=== PATIENT | male | born 2000 | race Caucasian/White ===

== ENCOUNTER 2025-01-22 08:16 | Emergency (ER) | payer MEDICAID, SELFPAY ==
[2025-01-22 08:17] VITALS: BP 130/96; PULSE 99; RESP 16; TEMP 36.8; O2SAT 95; BMI 19.5
--- NOTE | 2025-01-22 08:37 | CT_ITS ---
PROCEDURE: ABDOMEN/PELVIS W IV CONT ONLY 01/22/2025 REASON FOR EXAM: RLQ PAIN Nausea and vomiting. TECHNIQUE: ABDOMEN/PELVIS W IV CONT ONLY Coronal and Sagittal reconstruction series were provided. CONTRAST: Isovue-300 VOLUME: 100 mL One or more dose reduction techniques were used (e.g., Automated exposure control, adjustment of the mA and/or kV according to patient size, use of iterative reconstruction technique. RADIATION DOSE SUMMARY: CTDlvol: 7.8 mGy DLP: 303.71 mGycm COMPARISON: None FINDINGS: Lung bases: Lung bases are clear. Liver: Normal size. No mass. Gallbladder: Unremarkable Spleen: Normal size. Pancreas: Normal size without evidence of mass surrounding inflammation or ductal dilation. Adrenals: Unremarkable Kidneys: Normal renal sizes. No hydronephrosis. Bladder: Unremarkable Bowel: Nonspecific bowel gas pattern. Appendix: Unremarkable. Lymph nodes: Unremarkable Vasculature: The abdominal aorta and IVC are normal. Peritoneum / Retroperitoneum: Unremarkable Bones: Unremarkable CT/Abdomen/Pelvis W IV Cont ONLY IMPRESSION: No acute abnormality is seen. Reading Location: [id number]
--- NOTE | 2025-01-22 08:37 | EX.ED.DYSGE1 ---
HPI History of Present Illness Chief Complaint: Other, Pain/Inj Narrative Narrative: Patient is a 24-year-old male past medical history of pancreatitis who presented to the emergency department with a chief complaint abdominal pain. Patient states that yesterday he noted that he had abdominal pain nausea vomiting and states that the vomiting is since subsided. He states that he was concerned because on his left hand between these finger spaces he noted that his skin turned a darker color but noted that it was only on the left hand. He states that he was concerned as nothing like this is ever happened before. When inquiring about why he developed pancreatitis in the past he states it was from alcohol he states that he does not drink alcohol daily but does admit to still drinking. PFSH PFSH Home Medications ?Medication ?Instructions ?Recorded ?Last Taken ?Type dicyclomine 20 mg tablet 20 mg PO TID #30 tabs 01/22/25 Unknown Rx ondansetron 4 mg disintegrating 4 mg PO Q6H PRN nausea and 01/22/25 Unknown Rx tablet vomiting #20 tabs Allergy/AdvReac Type Severity Reaction Status Date / Time No Known Allergies Allergy Verified 01/22/25 08:17 Social History Smoking Status: Never smoker ROS ROS ED ROS Narrative Constitutional: Denies fevers, chills, headaches Cardiovascular: Denies chest pain or palpitations Respiratory: Denies shortness of breath Abdomen: Complains of abdominal pain as noted above and states that his nausea vomiting has subsided denies any previous abdominal surgeries : Denies any urinary symptoms Neurological: Denies numbness, aches, tingling Musculoskeletal: Denies back pain Skin: Denies any rashes or lesions EXAM Physical Exam Narrative Exam Narrative: General: Patient lying bed rest comfortably did not appear to be acute distress Head: Atraumatic, normocephalic Eyes: PERRL bilaterally, EOMI by, no conjunctival injection noted Neck: Soft, supple, trachea midline Cardiovascular: Regular rate and rhythm Respiratory: Clear to auscultation bilaterally Abdomen: Soft, nondistended, tenderness palpation in the right lower quadrant as well as the epigastric region no rebound or guarding on exam Extremities: +5/5 strength noted in the bilateral upper and lower extremities Neurological: Patient follow commands knew that he was at [facility] year is 2024 Skin: Warm, dry contact no rashes lesions noted patient does not have any appreciable significant skin changes in between his fingers on the left hand Const Vital Signs: 01/22/25 08:17 Temperature 98.2 F Temperature Source Oral Pulse Rate 99 Respiratory Rate 16 Blood Pressure 130/96 H Blood Pressure Mean 107 Pulse Ox 95 Oxygen Delivery Method Room Air MDM MDM MDM Narrative Medical decision making narrative: Patient is a 24-year-old male who presented to the emergency department the chief complaint of abdominal pain and concern for skin color change in his left hand. On the differential diagnosis includes but not limited to cholecystitis, choledocholithiasis, pancreatitis, appendicitis, viral gastroenteritis, constipation. Once workup is obtained reviewed he will be reevaluated. Patient be given IV fluids Zofran and Bentyl. Patient's CBC was reviewed and showed no evidence leukocytosis white blood count normal at 6.6, hemoglobin 15.8, plate count of 322. Patient sodium normal 139, potassium normal 3.7, creatinine normal at 0.99. Patient's AST and ALT were normal at 21 and 15 respectively total bilirubin was mildly elevated 1.54 however repeat abdominal exam was performed and he has no right upper quadrant tenderness on exam abdomen remains benign. Patient lipase normal at 16. Patient CT abdomen pelvis IV contrast was reviewed and showed no acute findings. On reevaluation the patient he is feeling better he would like to go home at this point time. He is vies follow-up with his primary care physician outpatient setting return with worsening symptoms or any other concerns. He is agreeable this plan as well as his family at bedside all question concerns answered is discharged home in stable condition. Patient given prescription for Zofran and Bentyl. Lab Data Labs: Laboratory Results - last 24 hr 01/22/25 08:51 WBC 6.6 RBC 5.13 Hgb 15.8 Hct 44.9 MCV 87.5 MCH 30.8 MCHC 35.2 RDW Std Deviation 38.1 RDW Coeff of Elliott 11.9 Plt Count 322 MPV 8.9 Immature Gran % (Auto) 0.200 Neut % (Auto) 81.4 H Lymph % (Auto) 9.4 L [place] % (Auto) 8.8 Eos % (Auto) 0.0 Baso % (Auto) 0.2 Absolute Neuts (auto) 5.4 Absolute Lymphs (auto) 0.62 L Nucleated RBC % 0 Sodium 139 Potassium 3.7 Chloride 100 Carbon Dioxide 26.2 Anion Gap 13 BUN 8 Creatinine 0.99 Estim Creat Clear Calc 102.64 Est GFR (MDRD) Non-Af 110 BUN/Creatinine Ratio 8.4 L Glucose 107 H Calcium 9.7 Total Bilirubin 1.54 H AST 21 ALT 15 Alkaline Phosphatase 52 Total Protein 7.4 Albumin 4.7 Globulin 2.8 Albumin/Globulin Ratio 1.7 Lipase 16 Radiography Diagnostic Testing: Clinical Impression(s) from Imaging Studies Abdomen/Pelvis CT 01/22/25 08:37 IMPRESSION: No acute abnormality is seen. Reading Location: [id number] Discharge Plan Triage Chief Complaint: Other, Pain/Inj Other Complaint: Nausea/Vomiting ED Provider: Zac Mayer Dx/Rx/DC Orders Clinical Impression: Abdominal pain Prescriptions: New ondansetron 4 mg tablet,disintegrating 4 mg PO Q6H PRN (Reason: nausea and vomiting) Qty: 20 0RF dicyclomine 20 mg tablet 20 mg PO TID Qty: 30 0RF Primary Care Provider: Care Physician,No Primary Referrals: Care Physician,No Primary [Primary Care Provider] - Keshia Dumont Brian, BROADCAST ENGINEER-C [[facility]] - Activity Restrictions/Additional Instructions: Use prescriptions as prescribed. Your CT did not show any acute findings today. Return with worsening symptoms or any other concerns Print Language: Bel[place]ian Disposition Disposition: Home, Self Care
[2025-01-22] MEDS: Dicyclomine 10 MG Capsule 20 MG PO (08:49)
[2025-01-22] MEDS: Ondansetron 4 MG/2 ML Vial IV (08:49)
[2025-01-22] MEDS: 0.9% Normal Saline (1000mL) 1,000 ML 999 ML IV (08:49)
[2025-01-22 09:16] LABS: Absolute Lymphocyte Count 0.62 X10^3/uL (0.83-4.51); Absolute Neutrophil Count 5.4 X10^3/uL (2.0-7.7); Basophil# 0.01 X10^3/uL; Basophil% 0.2 % (0-1); Hematocrit 44.9 % (40-54); Hemoglobin 15.8 g/dL (13.0-16.5); Lymphocyte # 0.62 X10^3/ul (0.83-4.51); Lymphocyte % 9.4 % (19-41); Mean Corp Hgb Conc 35.2 g/dL (32-36); Mean Corpuscular Hgb 30.8 pg (27.0-32.0); Mean Corpuscular Volume 87.5 fL (80-94); Mean Platelet Vol. 8.9 fl (6.2-12.0); Monocyte# 0.58 X10^3/uL; Monocyte% 8.8 % (0-10); NRBC Flagged by Analyzer 0 % (0-5); Neutrophil # 5.35 X10^3/uL (2.7-7.7); Neutrophil % 81.4 % (47-70); Platelet Count 322 K/mm3 (150-450); RBC Distribution Width CV 11.9 % (11.6-14.6); RBC Distribution Width SD 38.1 fl (35.1-43.9); Red Blood Count 5.13 M/mm3 (4.6-6.2); White Blood Count 6.6 K/mm3 (4.4-11.0)
[2025-01-22 09:59] LABS: ALB/GLOB Ratio 1.7 RATIO (0.9-2.4); AST(SGOT) 21 U/L (<=37); Alanine Aminotransfer ALT/SGPT 15 U/L (<=46); Albumin, Serum 4.7 g/dL (3.5-5.0); Alkaline Phosphatase 52 U/L (40-129); Anion Gap 13 (5-15); BUN 8 mg/dL (4-19); BUN/Creat Ratio 8.4 RATIO (10-20); Calcium,Total 9.7 mg/dL (7.6-11.0); Carbon Dioxide 26.2 mmol/L (21.0-32.0); Chloride 100 mmol/L (98-108); Creatinine, Serum 0.99 mg/dL (0.70-1.20); EST Glomerular Filtration Rate 110 (>60); Estimated Creatinine Clearance 102.64 ml/min (50-250); Globulin 2.8 g/dL (2.2-4.2); Glucose 107 mg/dL (70-99); Lipase 16 U/L (13-75); Potassium 3.7 mmol/L (3.3-5.1); Protein, Total 7.4 g/dL (5.9-8.4); Sodium Level 139 mmol/L (133-145); Total Bilirubin 1.54 mg/dL (0.00-1.30)
--- OUTSIDE RECORDS SUMMARY | 2025-01-22 10:22 | XMS RPT_ITS | CCD ---
Author Organization [facility] Inform ion Partnership [facility] [employer] Care Team Providers Care Photogrammetric Compilation Specialist Name Role Phone Hudson Millan Unavailable Unavailable Primay Care Physicia, No Unavailable Unavail able Unavailable Primary Care Provider Unavailabl e Ashu, Benja S Admitting Unavailable Powderly, Benja S Attending Unavailable Unavailable Primary Care Provider Unavailabl e Unavailable Primary Care Provider Unavailabl e ROSA Terry Jr., Robert R Primary Care Provider ROSA Terry Jr., Robert R Primary Care Provider ROSA Trery Jr., Robert R Primary Care Provider ANAND BHARDWAJ Attending Unavailable JAELYN TERRY JR. Primary Care Unavailable JAELYN TERRY JR. Primary Care Unavailable LUCIO OBRIEN Attending Unavailable KALEN VILLANUEVA Attending Unavailable [facility] [place] DOCTOR Primary Care Unavailable Medications Current Medications Medication Drug Class(es) Dates Sig (Normalized) Sig (Original) amoxicillin 500 mg oral capsule (1 source) Penicillin-class Antibacterial Start: 09-20-2018 End: 09-30-2018 take 1 capsule by mouth every eight hours amoxicillin 500 MG Cap capsule Take 1 capsule by mouth every 8 hours for 30 doses. 30 capsule 0 09/20/2018 09/30/2018 Active amoxicillin 875 mg / clavulanate 125 mg oral tablet (2 sources) Penicillin-class Antibacterial Start: 09-08-2019 End: 09-18-2019 take 1 tablet by mouth every twelve hours amoxicillin-clavu lanate 875-125 MG tablet Take 1 tablet by mouth every 12 hours for 10 days. 20 tablet 0 09/08/2019 09/18/2019 Active Start: 09-08-2019 End: 09-08-2019 amoxicillin-clavulanate (AUG MENTIN) 875-125 MG per tablet 1 tablet azithromycin 500 mg oral tablet (5 sources) Macrolide Antimicrobial Start: 12-15-2023 End: 12-20-2023 take 1 tablet by mouth once daily azithromycin 500 MG tablet Take 1 tablet by mouth daily for 5 days. 5 tablet 12/15/2023 12/20/2023 Active Start: 04-01-2023 End: 04-01-2023 Azithromycin (ZITHROMAX) tab let 1,000 mg Start: 08-31-2019 End: 09-11-2019 azithromycin 250 MG Tab tabl et Take 500 mg X1 then 250 mg PO Once Daily X 4 days 6 tablet 0 08/31/2019 09/11/2019 Active brompheniramine maleate 0.4 mg/ml / dextromethorphan hydrobromide 2 mg/ml / pseudoephedrine hydrochloride 6 mg/ml oral solution (2 sources) alpha-Adrenergic Agonist, Uncompetitive M-zoexno-P-aspartate Receptor Antagonist, Sigma-1 Agonist Start: 12-15-2023 End: 12-15-2023 take 5 mL by mouth every six hours as needed bnlkxbagikfdkxx-eojforkwkoauqvs-rrhokicw thorphan 30-2-10 MG/5ML Syrup Take 5 mL by mouth every 6 hours as needed for Cold Symptoms, Cough, Congestion or Rhinitis. 118 mL 12/15/2023 Active cefTRIAXone (ROCEPHIN) 1 g in sodium chloride 0.9% (MB PLUS) 50 mL (total volume) IVPB (1 source) Start: 09-20-2018 take 1 g intrave nous route every twenty- four hours cefTRIAXone (ROCEPHIN) 1 g in sodium chl oride 0.9% (MB PLUS) 50 mL (total volume) IVPB fluticasone propionate 0.05 mg/actuat metered dose nasal spray (2 sources) Corticosteroid Start: 12-15-2023 End: 12-15-2023 fluticasone 50 MCG/ACT Suspe nsion nasal spray 2 sprays per nostril BID for 7 days. 16 g 12/15/2023 Active Completed/Discontinued Medications Medication Drug Class(es) Dates Sig (Normalized) Sig (Original) acetaminophen 500 mg oral tablet (1 source) Start: 09-20-2018 End: 09-20-2018 acetaminophen (TYLENOL) tablet 1,000 mg Start: 09-20-2018 End: 09-20-2018 acetaminophen (TYLENOL) tabl et 1,000 mg cefTRIAXone (ROCEPHIN) 500 mg in Lidocaine 1% (PF) (XYLOCAINE MPF) IM injection (1 source) Start: 04-01-2023 End: 04-01-2023 cefTRIAXone (ROCEPHIN) 500 mg in Lidocaine 1% (PF) (XYLOCAINE MPF) IM injection diphenhydrAMINE hydrochloride 25 mg oral tablet (1 source) Histamine-1 Receptor Antagonist Start: 03-21-2020 End: 03-21-2020 diphenhydrAMINE (BENADRYL) tablet 50 mg Start: 03-21-2020 End: 03-21-2020 diphenhydrAMINE (BENADRYL) t ablet 50 mg ibuprofen 600 mg oral tablet (2 sources) Nonsteroidal Anti-inflammatory Drug Start: 03-20-2020 End: 03-20-2020 ibuprofen (MOTRIN) tablet 600 mg Start: 09-08-2019 End: 09-08-2019 ibuprofen (MOTRIN) tablet 60 0 mg naproxen 500 mg oral tablet (5 sources) Nonsteroidal Anti-inflammatory Drug Start: 12-09-2022 End: 12-15-2023 take 1 tablet by mouth twice daily at mealtime naproxen 500 MG tablet Take 1 tablet by mouth 2 times daily with meals for 10 days. 20 tablet 12/09/2022 12/15/2023 Discontinued (Therapy completed) Start: 04-15-2022 End: 12-09-2022 take 1 tablet by mouth twice daily at mealtime naproxen 375 MG tablet Take 1 tablet by mouth 2 times daily with meals. 60 tablet 0 04/15/2022 12/09/2022 Discontinued (Therapy completed) ondansetron 4 mg disintegrating oral tablet (1 source) Serotonin-3 Receptor Antagonist Start: 09-20-2018 End: 09-20-2018 ondansetron (ZOFRAN-ODT) disintegrating tablet 4 mg Start: 09-20-2018 End: 09-20-2018 ondansetron (ZOFRAN-ODT) dis integrating tablet 4 mg 150 ml sodium chloride 9 mg/ ml injection (1 source) Start: 09-20-2018 End: 09-20-2018 sodium chloride 0.9% IV solution 1,000 mL Problems Active Problems Problem Classification Problem Date Documented Da te Episodic/Chronic Abdominal pain (1 source) Unspecified abdominal pain; Translations: [UNSPECIFIED ABDOMINAL PAIN] Onset: 5 Episodic Alcohol-related disorders (1 source) Alcohol abuse, uncomplicated; Translations: [ALCOHOL ABUSE, UNCOMPLICATED] Onset: 5 Chronic Chronic obstructive pulmonary disease and bronchiectasis (3 sources) Bronchitis; Translations: [Bronchitis, not specified as acute or chronic] Onset: 4 12-15-2023 Episodic Disorders of teeth and jaw (1 source) Temporomandibular lwtzo-rtmw-ykjsrunuexk syndrome; Translations: [Arthralgia of temporomandibular joint, unspecified side] Episodic Lymphadenitis (1 source) Cervical lymphadenopathy; Translations: [Cervical lymphadenopathy] Episodic Nonspecific chest pain (1 source) Atypical chest pain; Translations: [Atypical chest pain] Episodic Other gastrointestinal disorders (1 source) Constipation, unspecified; Translations: [CONSTIPATION, UNSPECIFIED] Onset: 5 Episodic Other upper respiratory infections (4 sources) Streptococcal sore throat; Translations: [Upper respiratory infection] Onset: 4 12-15-2023 Episodic Otitis media and related conditions (2 sources) Acute suppurative otitis media without spontaneous rupture of ear drum; Translations: [Non-suppurative otitis media] Episodic Pancreatic disorders (not diabetes) (1 source) Acute pancreatitis without necrosis or infection, unspecified; Translations: [ACUTE PANCREATITIS WITHOUT NECROSIS OR INFECTION, UNSP] Onset: 5 Episodic Sprains and strains (1 source) Strain of knee; Translations: [Strain of unspecified muscle(s) and tendon(s) at lower leg level, left leg, initial encounter] Episodic Substance-related disorders (2 sources) Substance abuse; Translations: [Other psychoactive substance abuse, uncomplicated] Onset: 5 Chronic Past or Other Problems Problem Classification Problem Date Documented Date Episodic/Chronic Immunizations and screening for infectious disease (2 sources) Exposure to sexually transmissible disorder; Translations: [Contact with and (suspected) exposure to infections with a predominantly sexual mode of transmission] Onset: 04-01-2023 03-31-2023 Episodic Unclassified (1 source) Onset: 04-10-2022 04-10-2022 Results Test Name Value Interpretation Reference Range Facility Amylaseon 04-07-2025 Amylase [Catalytic activity/Vol] 406 U/L High 13-53 [facility] Comment on above: Performed By: #### A MY #### [facility] (DEFAULT) [address] [place] [id number] CBC With Auto Diff.on 2024 Basophils (Bld) [#/Vol] 0.04 10*3/uL Normal 0.00-0.30 [facility] Comment on above: Order Comment: Regul atory Requirements State: Only Absolute Cell Counts are reported with their reference ranges. Regulatory Requirements State: Only Absolute Cell Counts are reported with their reference ranges. Performed By: #### C BC #### [facility] (DEFAULT) [address] [place] [address]94 Basophils/100 WBC (Bld) 0.4 % Normal [facility] Comment on above: Order Comment: Regul atory Requirements State: Only Absolute Cell Counts are reported with their reference ranges. Regulatory Requirements State: Only Absolute Cell Counts are reported with their reference ranges. Performed By: #### C BC #### [facility] (DEFAULT) [address] [place] [address]85 Eosinophils (Bld) [#/Vol] 0.03 10*3/uL Normal 0.00-0.50 [facility] Comment on above: Order Comment: Regul atory Requirements State: Only Absolute Cell Counts are reported with their reference ranges. Regulatory Requirements State: Only Absolute Cell Counts are reported with their reference ranges. Performed By: #### C BC #### [facility] (DEFAULT) [address] [place] [address]73 Eosinophils/100 WBC (Bld) 0.3 % Normal [facility] Comment on above: Order Comment: Regul atory Requirements State: Only Absolute Cell Counts are reported with their reference ranges. Regulatory Requirements State: Only Absolute Cell Counts are reported with their reference ranges. Performed By: #### C BC #### [facility] (DEFAULT) [address] [place] [address] 62849 Erythrocyte distribution width (RBC) [Ratio] 13.8 % Normal 11.6-14.8 [facility] Comment on above: Order Comment: Regul atory Requirements State: Only Absolute Cell Counts are reported with their reference ranges. Regulatory Requirements State: Only Absolute Cell Counts are reported with their reference ranges. Performed By: #### C BC #### [facility] (DEFAULT) [address] [place], [place] [address] Hematocrit (Bld) [Volume fraction] 47.9 % Normal [facility] Comment on above: Order Comment: Regul atory Requirements State: Only Absolute Cell Counts are reported with their reference ranges. Regulatory Requirements State: Only Absolute Cell Counts are reported with their reference ranges. Performed By: #### C BC #### [facility] (DEFAULT) [address] [place] [address] Hemoglobin (Bld) [Mass/Vol] 16.3 g/dL Normal 13.5-17.5 [facility] Comment on above: Order Comment: Regul atory Requirements State: Only Absolute Cell Counts are reported with their reference ranges. Regulatory Requirements State: Only Absolute Cell Counts are reported with their reference ranges. Performed By: #### C BC #### [facility] (DEFAULT) [address] [place] [address] 785[address] Ig% 0.6 % Normal 0.0-4.0 [facility] Comment on above: Order Comment: Regul atory Requirements State: Only Absolute Cell Counts are reported with their reference ranges. Regulatory Requirements State: Only Absolute Cell Counts are reported with their reference ranges. Performed By: #### C BC #### [facility] (DEFAULT) [address] [place] [address]641 Lymphocytes (Bld) [#/Vol] 1.62 10*3/uL Normal 0.90-4.00 [facility] Comment on above: Order Comment: Regul atory Requirements State: Only Absolute Cell Counts are reported with their reference ranges. Regulatory Requirements State: Only Absolute Cell Counts are reported with their reference ranges. Performed By: #### C BC #### [facility] (DEFAULT) [address] [place] [address] Lymphocytes/100 WBC (Bld) 14.6 % Normal [facility] Comment on above: Order Comment: Regul atory Requirements State: Only Absolute Cell Counts are reported with their reference ranges. Regulatory Requirements State: Only Absolute Cell Counts are reported with their reference ranges. Performed By: #### C BC #### [facility] (DEFAULT) [address] [place], [place] [address] MCH (RBC) [Entitic mass] 31.2 pg Normal 26.0-34.0 [facility] Comment on above: Order Comment: Regul atory Requirements State: Only Absolute Cell Counts are reported with their reference ranges. Regulatory Requirements State: Only Absolute Cell Counts are reported with their reference ranges. Performed By: #### C BC #### [facility] (DEFAULT) [address] [place], [place] [address] MCHC (RBC) [Mass/Vol] 34.0 g/dL Normal 31.0-37.0 [facility] Comment on above: Order Comment: Regul atory Requirements State: Only Absolute Cell Counts are reported with their reference ranges. Regulatory Requirements State: Only Absolute Cell Counts are reported with their reference ranges. Performed By: #### C BC #### [facility] (DEFAULT) [address] [place] [address] MCV (RBC) [Entitic vol] 92 fL Normal 80-100 [facility] Comment on above: Order Comment: Regul atory Requirements State: Only Absolute Cell Counts are reported with their reference ranges. Regulatory Requirements State: Only Absolute Cell Counts are reported with their reference ranges. Performed By: #### C BC #### [facility] (DEFAULT) [address] [place] [address] Monocytes (Bld) [#/Vol] 0.71 10*3/uL Normal 0.30-0.90 [facility] Comment on above: Order Comment: Regul atory Requirements State: Only Absolute Cell Counts are reported with their reference ranges. Regulatory Requirements State: Only Absolute Cell Counts are reported with their reference ranges. Performed By: #### C BC #### [facility] (DEFAULT) [address] [place] [address]134 Monocytes/100 WBC (Bld) 6.4 % Normal [facility] Comment on above: Order Comment: Regul atory Requirements State: Only Absolute Cell Counts are reported with their reference ranges. Regulatory Requirements State: Only Absolute Cell Counts are reported with their reference ranges. Performed By: #### C BC #### [facility] (DEFAULT) [address] [place], [place] [address] Neutrophils (Bld) [#/Vol] 8.66 10*3/uL High 1.70-7.00 [facility] Comment on above: Order Comment: Regul atory Requirements State: Only Absolute Cell Counts are reported with their reference ranges. Regulatory Requirements State: Only Absolute Cell Counts are reported with their reference ranges. Performed By: #### C BC #### [facility] (DEFAULT) [address] [place], [place] [address] Neutrophils/100 WBC (Bld) 77.7 % Normal [facility] Comment on above: Order Comment: Regul atory Requirements State: Only Absolute Cell Counts are reported with their reference ranges. Regulatory Requirements State: Only Absolute Cell Counts are reported with their reference ranges. Performed By: #### C BC #### [facility] (DEFAULT) [address] [place] [address] Platelet mean volume (Bld) [Entitic vol] 8.6 fL Low 9.0-15.5 [facility] Comment on above: Order Comment: Regul atory Requirements State: Only Absolute Cell Counts are reported with their reference ranges. Regulatory Requirements State: Only Absolute Cell Counts are reported with their reference ranges. Performed By: #### C BC #### [facility] (DEFAULT) [address] [place] [address] Platelets (Bld) [#/Vol] 394 10*3/uL Normal 150-400 [facility] Comment on above: Order Comment: Regul atory Requirements State: Only Absolute Cell Counts are reported with their reference ranges. Regulatory Requirements State: Only Absolute Cell Counts are reported with their reference ranges. Performed By: #### C BC #### [facility] (DEFAULT) [address] [place] [phone] RBC (Bld) [#/Vol] 5.22 10*6/uL Normal 4.50-5.90 [facility] Comment on above: Order Comment: Regul atory Requirements State: Only Absolute Cell Counts are reported with their reference ranges. Regulatory Requirements State: Only Absolute Cell Counts are reported with their reference ranges. Performed By: #### C BC #### [facility] (DEFAULT) [address] [place], [place] [address] WBC (Bld) [#/Vol] 11.13 10*3/uL High 4.50-11.00 [facility] Comment on above: Order Comment: Regul atory Requirements State: Only Absolute Cell Counts are reported with their reference ranges. Regulatory Requirements State: Only Absolute Cell Counts are reported with their reference ranges. Performed By: #### C BC #### [facility] (DEFAULT) [address] [place], [place] [address] CHEST SINGLE VIEWon 11-05-19 CHEST SINGLE VIEW [facility] Patient: [address] [address] Admit Date: 11/04/24 /Age: 09 2000 ED Physician: Kalen Villanueva DO DIAGNOSTIC RADIOLOGY REQUISITION Attending Physician: Med Rec #: [id number] EXAM: CHEST SINGLE VIEW HISTORY: . Chest pain . COMPARISON: None. TECHNIQUE: Single view of the chest FINDINGS: Heart and vascularity are unremarkable. Lungs are free of focal infiltrates. EKG leads overlie the chest. Grossly no bony abnormality is appreciated. IMPRESSION: No acute heart or lung disease identified. Authenticated on: 11/04/24 1132 [id number] Job ID# [id number] CC: Kalen Villanueva DO [facility] [place] PHYSICIAN Normal [facility] CT ABD/PELVIS WITHOUT CONTRA STon 11-04-2024 CT ABD/PELVIS WITHOUT CONTRAST [facility] Patient: [address] [place] [address] Admit Date: 11/04/24 /Age: 09 2000 ED Physician: Kalen Villanueva DO DIAGNOSTIC RADIOLOGY REQUISITION Attending Physician: Shankar Rec #: [id number] EXAMINATION: CT ABD/PELVIS WITHOUT CONTRAST, 11/04/2024 11:10 AM EDT HISTORY: Pancreatitis COMPARISON: None. TECHNIQUE: CT scan of the abdomen and pelvis was performed without IV contrast. CT dose reduction technique was used, including Automated Exposure Control. FINDINGS: The lung bases are clear. The liver, gallbladder, biliary tree, spleen, bilateral adrenal glands and bilateral kidneys are unremarkable. The pancreatic tail is mildly prominent with stranding density and edema adjacent to this region. In the right clinical setting these findings can be associated with focal acute pancreatitis. There is a moderate amount of stranding densities and free fluid within the left upper abdomen which track inferiorly along the left colonic gutter into the pelvis. There is no loculated or drainable fluid collection. There is no free air or abscess. The pancreatic duct is not dilated. Nonobstructive bowel gas pattern with a large amount of stool within the descending colon. The appendix appears to be normal size. The distal esophagus is unremarkable. There is a large amount of debris within the stomach. The small bowel is normal caliber. The abdominal aorta and the IVC are unremarkable. There are no pathologically enlarged lymph nodes. There is mild circumferential thickening of the urinary bladder wall. The prostate gland is unremarkable. The osseous structures are unremarkable. IMPRESSION: The pancreatic tail is mildly prominent with stranding density and edema adjacent to this region. In the right clinical setting these findings can be associated with focal acute pancreatitis. There is a moderate amount of stranding densities and free fluid within the left upper abdomen which track inferiorly along the left colonic gutter into the pelvis. There is no loculated or drainable fluid collection. There is no free air or abscess. The pancreatic duct is not dilated. Authenticated on: 11/04/241207 [id number]/RRIA 07 07 Job ID# [id number] CC: Kalen Villanueva DO [facility] [place] PHYSICIAN Normal [facility] Comprehensive Metabolic Pane sunny 11-04-2024 Albumin [Mass/Vol] 4.6 g/dL Normal 3.2-5.2 [facility] Comment on above: Performed By: #### C MP #### [facility] (DEFAULT) [address] [place], [place] [address] ALP [Catalytic activity/Vol] 73 U/L Normal 40-140 [facility] Comment on above: Performed By: #### C MP #### [facility] (DEFAULT) [address] [place], [place] [address] ALT [Catalytic activity/Vol] 8 U/L Normal 0-50 [facility] Comment on above: Performed By: #### C MP #### [facility] (DEFAULT) [address] [place] [address] Anion gap [Moles/Vol] 15 mmol/L Normal 10-20 [facility] Comment on above: Performed By: #### C MP #### [facility] (DEFAULT) [address] [place] [address] AST [Catalytic activity/Vol] 17 U/L Normal 0-50 [facility] Comment on above: Performed By: #### C MP #### [facility] (DEFAULT) [address] [place] [address]78 Bilirubin [Mass/Vol] 0.4 mg/dL Normal 0.0-1.3 [facility] Comment on above: Performed By: #### C MP #### [facility] (DEFAULT) [address] [place] [address] Calcium [Mass/Vol] 9.5 mg/dL Normal 8.4-10.2 [facility] Comment on above: Performed By: #### C MP #### [facility] (DEFAULT) [address] [place] [address] Chloride [Moles/Vol] 103 mmol/L Normal 98-108 [facility] Comment on above: Performed By: #### C MP #### [facility] (DEFAULT) [address] [place] [address]83 CO2 [Moles/Vol] 28.0 mmol/L Normal 21.0-32.0 [facility] Comment on above: Performed By: #### C MP #### [facility] (DEFAULT) [address] [place] [address] [place], [place] [address] Creatinine [Mass/Vol] 0.8 mg/dL Normal 0.5-1.3 [facility] Comment on above: Performed By: #### C MP #### [facility] (DEFAULT) [address] [place], [place] [address] GFR/1.73 sq M.predicted MDRD (S/P/Bld) [Vol rate/Area] 129 mL/min/{1.73_m2} Normal 60-1000 [facility] Comment on above: Result Comment: The eGFR should be used for monitoring renal function only and not for medication dosing. Performed By: #### C MP #### [facility] (DEFAULT) [address] [place], [place] [address] Glucose [Mass/Vol] 109 mg/dL High 65-99 [facility] Comment on above: Performed By: #### C MP #### [facility] (DEFAULT) [address] [place], [place] [address], [place] [address] Potassium [Moles/Vol] 4.0 mmol/L Normal 3.5-5.1 [facility] Comment on above: Performed By: #### C MP #### [facility] (DEFAULT) [address] [place], [place] [address], [place] [address] Protein [Mass/Vol] 6.9 g/dL Normal 6.0-8.0 [facility] Comment on above: Performed By: #### C MP #### [facility] (DEFAULT) [address] [place], [place] [address], [place] [address] Sodium [Moles/Vol] 142 mmol/L Normal 135-145 [facility] Comment on above: Performed By: #### C MP #### [facility] (DEFAULT) [address] [place] [address] Urea nitrogen [Mass/Vol] 12 mg/dL Normal 8-25 [facility] Comment on above: Performed By: #### C MP #### [facility] (DEFAULT) [address] [place], [place] [address], [place] [address] EDREPTon 11-04-2024 EDREPT [facility] Patient: CHRISTIAN CARRASQUILLO EMERGENCY DEPARTMENT PHYSICIAN REPORT Admit Date: 11/04/24 /Age: 09 2000//M ED Physician: Kalen Villanueva DO Med Rec #: [id number] History Of Present Illness - General General Complaints: General Complaints Time Seen by Provider: 11/04/24 09:55 HPI: Patient presents here for evaluation of abdominal cramping. Patient says it started an hour ago. The patient tried to make himself throw up but it did not help. Patient has nausea without vomiting. No diarrhea or symptomatic bleeding. Started periumbilical cramping onto the left side of his abdomen. Patient is a cramping we then went to the left chest and shoulder. No diaphoresis weakness patient denies back or flank pain. This has happened before but self resolved. No meds prior to arrival Past Medical History Previous Medical History: No Past Surgical History: No Allergies No Known Allergies Allergy (Verified 11/04/24 10:06) Home Medications Dicyclomine HCl [Bentyl] 20 mg PO QID PRN #16 tablet 11/04/24 Ondansetron Odt [Zofran Odt] 4 mg PO Q4H PRN #10 tab.rapdis 11/04/24 - Psychosocial History Hx Alcohol Use: Yes - 12 pack daily Hx Substance Use: Yes Smoking Status: Current every day smoker Hx Physical Abuse: No - Vaccination History Hx Tetanus, Diphtheria Vaccination: Yes Hx Influenza Vaccination: No Hx Pneumococcal Vaccination: No Immunizations Up to Date: Yes Review Of Systems All Other Systems: Reviewed and negative for new complaints Constitutional: Reports: No Symptoms Reported EENT: Reports: No Symptoms Reported Respiratory: Reports: No Symptoms Reported Cardiac (ROS): Reports: See HPI ABD/GI: Reports: See HPI : Reports: No Symptoms Reported Musculoskeletal: Reports: No Symptoms Reported Skin: Reports: No Symptoms Reported Neurological/Psych: Reports: No Symptoms Reported Hematologic/Lymphatic: Reports: No Symptoms Reported Physical Exam General Appearance: Yes:: No Acute Distress, Alert ENT: Yes:: No Signs of Dehydration Neck: Yes:: No JVD Respiratory: Yes:: Breath Sounds Normal Abdomen: Yes:: Other - Periumbilical tenderness left side mid abdominal tenderness no distention mass or peritonitis Skin: Color Normal Extremities: Normal Appearance Neurologic/Psychiatric: Oriented x3 Results - Lab Results Laboratory Tests 11/04/24 11/04/24 11/04/24 10:12 10:12 10:24 WBC RBC Hgb Hct MCV MCH MCHC RDW Plt Count MPV Immature Gran % (Auto) Neutrophils % Lymphocytes % Monocytes % Eosinophils % Basophils % Neutrophils # Lymphocytes # Monocytes # Basophils # Eosinophilia # Sodium 142 Potassium 4.0 Chloride 103 Carbon Dioxide 28.0 Anion Gap 15 BUN 12 Creatinine 0.8 Estimated GFR 129 Glucose 109 H Calcium 9.5 Total Bilirubin 0.4 AST 17 ALT 8 Alkaline Phosphatase 73 Troponin I High Sens <6 Total Protein 6.9 Albumin 4.6 Amylase 406 H Lipase 1002 H* Specimen Type Clean catch Urine Color Yellow Urine Clarity Cloudy H Urine pH 8.0 Ur Specific [place] 1.015 Urine Protein Negative Urine Ketones Negative Urine Blood Negative Urine Nitrite Negative Urine Bilirubin Negative Urine Urobilinogen 1.0 Ur Leukocyte Esterase Negative Urine Glucose Negative Urine Opiates Screen None detected Ur Buprenorphine Scrn None detected Ur Oxycodone Screen None detected Urine Methadone Screen None detected Urine Fentanyl Screen None detected Ur Barbiturates Screen None detected Urine Phencyclidine (PCP) Comment None detected Ur Amphetamines Screen None detected U Benzodiazepines Scrn None detected Urine Cocaine Screen None detected U Marijuana (THC) Screen Presumptive positive H 11/04/24 10:24 WBC 11.13 H RBC 5.22 Hgb 16.3 Hct 47.9 MCV 92 MCH 31.2 MCHC 34.0 RDW 13.8 Plt Count 394 MPV 8.6 L Immature Gran % (Auto) 0.6 Neutrophils % 77.7 Lymphocytes % 14.6 Monocytes % 6.4 Eosinophils % 0.3 Basophils % 0.4 Neutrophils # 8.66 H Lymphocytes # 1.62 Monocytes # 0.71 Basophils # 0.04 Eosinophilia # 0.03 Sodium Potassium Chloride Carbon Dioxide Anion Gap BUN Creatinine Estimated GFR Glucose Calcium Total Bilirubin AST ALT Alkaline Phosphatase Troponin I High Sens Total Protein Albumin Amylase Lipase Specimen Type Urine Color Urine Clarity Urine pH Ur Specific [place] Urine Protein Urine Ketones Urine Blood Urine Nitrite Urine Bilirubin Urine Urobilinogen Ur Leukocyte Esterase Urine Glucose Urine Opiates Screen Ur Buprenorphine Scrn Ur Oxycodone Screen Urine Methadone Screen Urine Fentanyl Screen Ur Barbiturates Screen Urine Phencyclidine (PCP) Comment Ur Amphetamines Screen U Benzodiazepines Scrn Urine Cocaine Screen U Marijuana (THC) Screen Medical Decision Making - Heart Score History: Slightly Suspicious EKG: Norm (more content not included)... Normal [facility] INITIAL HS TROPONIN Ion 04-0 HS Troponin <6 Normal 01-19 [facility] Comment on above: Performed By: #### H STROP0 #### [facility] (DEFAULT) [address] [place], [place] [address] Lipaseon 11-04-2024 Lipase [Catalytic activity/Vol] 1002 U/L Critically high [facility] Comment on above: Order Comment: Criti zoë Result called to and read back by DR. VILLANUEVA of ED on 11/04/2024 11:09 AM by Divya Fried. Performed By: #### L IP #### [facility] (DEFAULT) [address] [place] [id number] Urinalysison 11-04-2024 Bilirubin Ql (U) Negative Normal Negative [facility] Comment on above: Performed By: #### U A #### [facility] (DEFAULT) [address] [place] [address] Clarity (U) Cloudy Abnormal Clear [facility] Comment on above: Performed By: #### U A #### [facility] (DEFAULT) [address] [place] [address]87 Color (U) Yellow Normal [facility] Comment on above: Performed By: #### U A #### [facility] (DEFAULT) [address] [place] [address]108 Glucose Ql (U) Negative Normal Negative [facility] Comment on above: Performed By: #### U A #### [facility] (DEFAULT) [address] [place] [address]56 Hemoglobin Ql (U) Negative Normal [facility] Comment on above: Performed By: #### U A #### [facility] (DEFAULT) [address] [place] [address]171 Ketones Ql (U) Negative Normal Negative [facility] Comment on above: Performed By: #### U A #### [facility] (DEFAULT) [address] [place] [address] Leukocytes Negative Normal Negative [facility] Comment on above: Performed By: #### U A #### [facility] (DEFAULT) [address] [place] [address]75 Nitrite Ql (U) Negative Normal Negative [facility] Comment on above: Performed By: #### U A #### [facility] (DEFAULT) [address] [place] [address] 49304 Protein Ql (U) Negative Normal Negative [facility] Comment on above: Performed By: #### U A #### [facility] (DEFAULT) [address] [place] [address]402 Specific gravity (U) [Rel density] 1.015 Normal 1.005-1.025 [facility] Comment on above: Performed By: #### U A #### [facility] (DEFAULT) [address] [place] [address] 45338 UpH 8.0 Normal 5.0-6.5 [facility] Comment on above: Performed By: #### U A #### [facility] (DEFAULT) [address] [place] [address] 04387 Urine Specimen Type Clean Catch Normal [facility] Comment on above: Performed By: #### U A #### [facility] (DEFAULT) [address] [place] [address] 37305 Urobilinogen (U) [Mass/Vol] 1.0 mg/dL Normal <2.0 [facility] Comment on above: Performed By: #### U A #### [facility] (DEFAULT) [address] [place] [address]1876 Urine Drug Screenon 11-05-19 25 Amphetamines. Not detected Normal None Detected [facility] Comment on above: Order Comment: Urin e drug screening tests are to be used for medical purposes only. Result Comment: CUT- OFF: 1000 ng/mL Performed By: #### U DS #### [facility] (DEFAULT) [address] [place] [address] 35058 Barbiturates Not detected Normal None Detected [facility] Comment on above: Order Comment: Urin e drug screening tests are to be used for medical purposes only. Result Comment: CUT- OFF: 200 ng/mL Performed By: #### U DS #### [facility] (DEFAULT) [address] [place] [address] Benzodiazepines. Not detected Normal None Detected [facility] Comment on above: Order Comment: Urin e drug screening tests are to be used for medical purposes only. Result Comment: CUT- OFF: 200 ng/mL Performed By: #### U DS #### [facility] (DEFAULT) [address] [place] [address] Cocaine. Not detected Normal None [facility] Comment on above: Order Comment: Urin e drug screening tests are to be used for medical purposes only. Result Comment: CUT- OFF: 300 ng/mL Performed By: #### U DS #### [facility] (DEFAULT) [address] [place] [address] Methadone Not detected Normal None Detected [facility] Comment on above: Order Comment: Urin e drug screening tests are to be used for medical purposes only. Result Comment: CUT- OFF: 300 ng/mL Performed By: #### U DS #### [facility] (DEFAULT) [address] [place] [address] Opiates Not detected Normal None Detected [facility] Comment on above: Order Comment: Urin e drug screening tests are to be used for medical purposes only. Result Comment: CUT- OFF: 300 ng/mL Performed By: #### U DS #### [facility] (DEFAULT) [address] [place] [address] Oxycodone Not detected Normal None Detected [facility] Comment on above: Order Comment: Urin e drug screening tests are to be used for medical purposes only. Result Comment: DETE CTABLE LEVEL IS 100 ng/mL Performed By: #### U DS #### [facility] (DEFAULT) [address] [place] [address] Phencyclidine. Not detected Normal None Detected [facility] Comment on above: Order Comment: Urin e drug screening tests are to be used for medical purposes only. Result Comment: CUT- OFF: 25 ng/mL Performed By: #### U DS #### [facility] (DEFAULT) [address] [place] [address]757 THC. Positive Abnormal [facility] Comment on above: Order Comment: Urin e drug screening tests are to be used for medical purposes only. Result Comment: CUT- OFF: 50 ng/mL Performed By: #### U DS #### [facility] (DEFAULT) [address] [place] [address] 72028 UBUP Not detected Normal [facility] Detected [facility] Comment on above: Order Comment: Urin e drug screening tests are to be used for medical purposes only. Result Comment: CUT- OFF: 5 ng/mL Performed By: #### U DS #### [facility] (DEFAULT) [address] [place] [address] 07342 UFEN Not detected Normal [facility] Comment on above: Order Comment: Urin e drug screening tests are to be used for medical purposes only. Result Comment: CUT- OFF: 1 ng/mL Performed By: #### U DS #### [facility] (DEFAULT) [address] [place] [address] RAPID STREP A ANTIGENon 11-28 S. pyogenes Ag Ql (Throat) Negative NEGATIVE [facility] Comment on above: STREP CULTURE TO FOL LOW TESTING PERFORMED BY WILVER Testing performed at [address] RAPID STREP GROUP Aon 2023 S. pyogenes Ag IA Ql (Unsp spec) Negative Normal NEGATIVE [facility] Comment on above: Result Comment: STRE P CULTURE TO FOLLOW TESTING PERFORMED BY WILVER Testing performed at [place] [address] Performed By: #### R SAT #### [place] [address] THROAT CULTUREon 12-15-2023 Throat culture SPECIMEN DESCRIPTION THROAT SWAB CULTURE USUAL OROPHARYNGEAL ENRIQUE * Result Note: Testing performed at [place], [place] [address] * REPORT STATUS 12/17/2023 * Result Note: FINAL * Normal [facility] Comment on above: Performed By: #### T [facility] #### Testing performed at [facility] [address] [place] [address] XR Knee - left 3 Viewson IMPRESSION: No acute bony abnormalities. RADIOLOGY EXAMINATION: XR KNEE LEFT 3 VIEWS, 04/10/2022 1:34 PM EDT HISTORY: pain after fall and twisting yesterday COMPARISON: None. TECHNIQUE: Left knee x-ray: 3 view(s). FINDINGS: No acute fractures, dislocations, or radiopaque foreign bodies. RADIOLOGY Reji Valladares MD - 04/10/2022 EXAMINATION: XR KNEE LEFT 3 VIEWS, 04/10/2022 1:34 PM EDT HISTORY: pain after fall and twisting yesterday COMPARISON: None. TECHNIQUE: Left knee x-ray: 3 view(s). FINDINGS: No acute fractures, dislocations, or radiopaque foreign bodies. IMPRESSION IMPRESSION: No acute bony abnormalities. [facility] Radiology Study observation (narrative) [facility] XR Knee - left 3 ViewsOrdere d By: Reji Valladares on 04-10-2022 [facility] Work Phone: C trach/N sandra Amplified Prob ryan 03-24-2020 C. trachomatis amp. Not Detected Normal NODT Ana [facility] Comment Optimal performance is obtained with First Catch urines. Clean catch urine samples have been shown to have reduced sensitivity for the detection of C. trachomatis, N. gonorrhoeae and T. vaginalis using the APTIMA nucleic acid amplification method. Normal [facility] N. gonorrhoeae amp. Not Detected Normal NODT Ana [facility] TOXICOLOGY DRUG SCREEN, URIN Ryan 03-21-2020 Amphetamine (U) [Mass/Vol] Negative NEGATIVE NG/ML [facility] Comment on above: <500 ng/ml CUTOFF Barbiturates Screen Ql (U) Negative NEGATIVE NG/ML [facility] Comment on above: <200 ng/ml CUTOFF Benzodiazepines Ql (U) Negative NEGATIVE NG/ML [facility] Comment on above: <150 ng/ml CUTOFF Benzoylecgonine Ql (U) Positive Abnormal NEGATIVE NG/ML [facility] Comment on above: <150 ng/ml CUTOFF *Unconfirmed Screening Result* Unconfirmed screening results are to be used only for medical treatment purposes. Buprenorphine Ql (U) Negative NEGATIVE NG/ML [email or web address] Comment on above: <10 ng/ml CUTOFF Testing performed at [place], [place] [address] Cannabinoids Screen Ql (U) Positive Abnormal NEGATIVE NG/ML [email or web address] Comment on above: <50 ng/ml CUTOFF *Unconfirmed Screening Result* Unconfirmed screening results are to be used only for medical treatment purposes. Interpretation and review of laboratory results Abnormal [facility] Methadone Screen Ql (U) Negative NEGATIVE NG/ML [email or web address] Comment on above: <200 ng/ml CUTOFF Methamphetamine (U) [Mass/Vol] Negative NEGATIVE NG/ML [facility] Comment on above: <500 ng/ml CUTOFF Opiates Screen Ql (U) Negative NEGATIVE NG/ML [email or web address] Comment on above: <100 ng/ml CUTOFF Oxycodone Ql (U) Negative NEGATIVE NG/ML [facility] Comment on above: <100 ng/ml CUTOFF Phencyclidine Screen method >25 ng/mL Ql (U) Negative NEGATIVE NG/ML [email or web address] Comment on above: <25 ng/ml CUTOFF Propoxyphene + Norpropoxyphene Screen Ql (U) Negative NEGATIVE NG/ML [facility] Comment on above: <300 ng/ml CUTOFF Tricyclic antidepressants Screen Ql (U) Negative NEGATIVE NG/ML [facility] Comment on above: <300 ng/ml CUTOFF C trach/N sandra Amplified Prob ryan 03-20-2020 Specimen Description Urine Normal [facility] CBC, EDIF, PLATELETon 2019 ABSOLUTE BASOPHIL COUNT 0.0 10*3/uL 0 - 0.2 10*3/uL [email or web address] Comment on above: Testing performed at [place], [place] [address] Basophils/100 WBC (Bld) 0.3 % 0 - 2 % [facility] Differential cell count method Nom (Bld) AUTO DIFF % [facility] Eosinophils (Bld) [#/Vol] 0.00 10*3/uL 0 - 0.7 10*3/uL [facility] Eosinophils/100 WBC (Bld) 0.1 % 0 - 11 % [facility] Erythrocyte distribution width (RBC) [Ratio] 12.4 % 11.5 - 14.5 % [facility] Hematocrit (Bld) [Volume fraction] 43.4 % 42 - 52 % [facility] Hemoglobin (Bld) [Mass/Vol] 15.6 g/dL [facility] Interpretation and review of laboratory results Abnormal [facility] Lymphocytes (Bld) [#/Vol] 1.20 10*3/uL 1.2 - 3.4 10*3/uL [facility] Lymphocytes/100 WBC (Bld) 12.5 % Low 20 - 55 % [facility] MCH (RBC) [Entitic mass] 31.1 pg 26 - 35 PG [facility] MCHC (RBC) [Mass/Vol] 35.9 g/dL [facility] MCV (RBC) [Entitic vol] 86.4 fL [facility] Monocytes (Bld) [#/Vol] 0.6 10*3/uL 0 - 0.7 10*3/uL [facility] Monocytes/100 WBC (Bld) 6.6 % 0 - 10 % [facility] Neutrophils (Bld) [#/Vol] 7.8 10*3/uL High 1.4 - 6.5 10*3/uL [facility] Neutrophils/100 WBC (Bld) 80.5 % High 37 - 75 % [facility] Platelet mean volume (Bld) [Entitic vol] 6.8 fL Low [facility] Platelets (Bld) [#/Vol] 404 10*3/uL High 130 - 400 10*3/uL [facility] RBC (Bld) [#/Vol] 5.02 10*6/uL 4 - 6.1 10*6/uL [facility] WBC (Bld) [#/Vol] 9.6 10*3/uL 3.6 - 13 10*3/uL [facility] COMPREHENSIVE METABOLIC PANE Sunny 03-20-2020 Albumin [Mass/Vol] 4.9 G/dl 3.7 - 5.6 G/dl [facility] Albumin/Globulin [Mass ratio] 1.8 {ratio} [facility] ALP [Catalytic activity/Vol] 65 U/L [facility] ALT [Catalytic activity/Vol] 14 U/L <50 IU/L [facility] AST [Catalytic activity/Vol] 34 U/L [facility] Bilirubin [Mass/Vol] 1.2 mg/dL [facility] Calcium [Mass/Vol] 9.8 mg/dL [facility] Chloride [Moles/Vol] 104 mmol/L [facility] Comment on above: Please note: Triglyc eride levels of 600mg/dL or higher may positively bias chloride results by approximately 2.1 mmol CO2 [Moles/Vol] 25 mmol/L [facility] Creatinine [Mass/Vol] 0.80 mg/dL [facility] GFR/1.73 sq M predicted among non-blacks MDRD (S/P/Bld) [Vol rate/Area] Unable to calculate GFR due to inappropriate age/gender/creatinine value. [facility] Comment on above: Testing performed at [place] [address] Glucose post fast [Mass/Vol] 119 mg/dL High [facility] Comment on above: NORMAL <100 mg/dL PREDIABETES 101-126 mg/dL DIABETES 126 mg/dL or higher Interpretation and review of laboratory results Abnormal [facility] Potassium [Moles/Vol] 3.4 mmol/L Low [facility] Protein [Mass/Vol] 7.7 g/dL [facility] Sodium [Moles/Vol] 139 mmol/L [facility] Urea nitrogen [Mass/Vol] 7 mg/dL [facility] D-DIMER,QUANTITATIVEon 03-20 Fibrin D-dimer FEU (PPP) [Mass/Vol] <0.27 <0.56 mg/L FEU [facility] Comment on above: If result is greater than the cutoff value of 0.5 mg/L then the potential for PE or DVT exists. Other conditions exist which may cause a falsely elevated level. Please correlate clinically, including radiological findings and other clinical parameters. Testing performed at [place], [place] [address] PROTIME-INRon 03-20-2020 INR Coag (PPP) [Relative time] 1.12 {INR} [facility] Comment on above: 2.0-3.0 THERAPEUTIC RANGE 2.5-3.5 MECHANICAL VALVE RANGE Testing performed at [place], [place] [address] PT Coag (PPP) [Time] 14.3 s [facility] PTTon 03-20-2020 aPTT Coag (Bld) [Time] 29.3 s [facility] Comment on above: CARDIAC AND PE/DVT THERAPUTIC RANGE 69-97 SEC VASCULAR/THREATENED LIMB THERAPUTIC RANGE 80-112 SEC Testing performed at [place] [address] TROPONINon 03-20-2020 Troponin I.cardiac [Mass/Vol] ng/mL 0 - 0.08 ng/mL [facility] Comment on above: Testing performed at [place] [address] XR CHEST AP PORTABLEon 03-20 User, Interfaces - 03/20/2020 11:56 PM EDT EXAM: XR CHEST AP PORTABLE HISTORY: SOB COMPARISON: None. TECHNIQUE: Portable chest was done at 10:58 PM. FINDINGS: Trachea, mediastinum and heart size are unremarkable. No infiltrate, nodule, effusion or pneumothorax is noted. The diaphragm and bony elements are intact. IMPRESSION IMPRESSION: Nonacute portable chest. [facility]: XR CHEST AP PORTABLE HISTORY: SOB COMPARISON: None. TECHNIQUE: Portable chest was done at 10:58 PM. FINDINGS: Trachea, mediastinum and heart size are unremarkable. No infiltrate, nodule, effusion or pneumothorax is noted. The diaphragm and bony elements are intact. [facility] IMPRESSION: Nonacute portable chest. [facility] RAPID STREP A ANTIGENon S. pyogenes Ag Ql (Throat) Negative NEGATIVE [facility] Comment on above: STREP CULTURE TO FOL LOW TESTING PERFORMED BY WILVER Testing performed at [place], [place] [address] Acetaminophenon 10-03-2018 Acetaminophen mass conc < 2.0 Low 10.0-30.0 [facility] Comment on above: Performed By: #### C HEM8, ACTMN #### Unless otherwise noted, all testing performed by [facility] [address] [place], [place] [address] CLIA: [id number] [employer]ician: Jez Willingham M.D. Acetaminophen Levelon 2018 Acetaminophen mass conc < 2.[address] [facility] Basic Metabolic Panelon Calcium mass conc 9.2 mg/dL Normal 8.4-10.2 [facility] Comment on above: Performed By: #### C HEM8, ACTMN #### Unless otherwise noted, all testing performed by [place] [address] CLIA: [id number] [employer]: Jez Willingham M.D. Chloride molar conc 109 mmol/L High 98-108 [facility] Comment on above: Performed By: #### C HEM8, ACTMN #### Unless otherwise noted, all testing performed by [place] [address] CLIA: [id number] [employer]: Jez Willingham M.D. CO2 molar conc 28 mmol/L Normal 21-32 [facility] Comment on above: Performed By: #### C HEM8, ACTMN #### Unless otherwise noted, all testing performed by [place] [address] CLIA: [id number] [employer]: Jez Willingham M.D. Creatinine mass conc 0.81 mg/dL Normal 0.50-1.00 [facility] Comment on above: Performed By: #### C HEM8, ACTMN #### Unless otherwise noted, all testing performed by [place] [address] CLIA: [id number] [employer]: Jez Willingham M.D. GFR/1.73 sq M predicted among blacks MDRD vol rate/area (S/P/Bld) Unable to calculate eGFR due to patient age <18 years. [facility] Comment on above: Result Comment: Afri can Moroccan GFR Calc Performed By: #### C HEM8, ACTMN #### Unless otherwise noted, all testing performed by [place] [address] CLIA: [id number] [employer]: Jez Willingham M.D. GFR/1.73 sq M predicted among non-blacks MDRD vol rate/area (S/P/Bld) Unable to calculate eGFR due to patient age <18 years. Normal [facility] Comment on above: Result Comment: Non- GFR Calc Performed By: #### C HEM8, ACTMN #### Unless otherwise noted, all testing performed by [place] [address] CLIA: [id number] [employer]: Jez Willingham M.D. Glucose mass conc 97 mg/dL Normal 70-99 [facility] Comment on above: Result Comment: This test result might be falsely depressed or falsely elevated on samples drawn from patients taking Sulfasalazine and Sulfapyridine. Venipuncture should occur prior to taking either of these drugs. Performed By: #### C HEM8, ACTMN #### Unless otherwise noted, all testing performed by [place] [address] CLIA: [id number] [employer]: Jez Willingham M.D. Potassium molar conc 4.5 mmol/L Normal 3.5-5.1 [facility] Comment on above: Performed By: #### C HEM8, ACTMN #### Unless otherwise noted, all testing performed by [place] [address] CLIA: [id number] [employer]: Jez Willingham M.D. Sodium molar conc 142 mmol/L Normal 135-145 [facility] Comment on above: Performed By: #### C HEM8, ACTMN #### Unless otherwise noted, all testing performed by [address] [place], [place] [address] CLIA: [id number] [employer]: Jez Willingham M.D. Urea nitrogen mass conc 13 mg/dL Normal 8-25 [facility] Comment on above: Performed By: #### C HEM8, ACTMN #### Unless otherwise noted, all testing performed by [place] [address] CLIA: [id number] [employer]: Jez Willingham M.D. Calcium mass conc 9.2 mg/dL 8.4 - 10.2 mg/dL [facility] Chloride molar conc 109 mmol/L High 98 - 108 mmol/L [facility] CO2 molar conc 28 mmol/L 21 - 32 mmol/L [facility] Creatinine mass conc 0.81 mg/dL 0.5 - 1 mg/dL [facility] GFR/1.73 sq M predicted among blacks MDRD vol rate/area (S/P/Bld) Unable to calculate eGFR due to patient age <18 years. ml/min/1.73s q.m [facility] Comment on above: GFR Calc GFR/1.73 sq M predicted among non-blacks MDRD vol rate/area (S/P/Bld) Unable to calculate eGFR due to patient age <18 years. ml/min/1.73s q.m [facility] Comment on above: Non- GFR Calc Glucose mass conc 97 mg/dL 70 - 99 mg/dL [facility] Comment on above: This test result syeda ht be falsely depressed or falsely elevated on samples drawn from patients taking Sulfasalazine and Sulfapyridine. Venipuncture should occur prior to taking either of these drugs. Potassium molar conc 4.5 mmol/L 3.5 - 5.1 mmol/L [facility] Sodium molar conc 142 mmol/L 135 - 145 mmol/L [facility] Urea nitrogen mass conc 13 mg/dL 8 - 25 mg/dL [facility] DRUGS OF ABUSE SCREEN, URINE on 10-03-2018 Amphetamine Screen, Urine None Detected None Detected [facility] Barbiturate Screen, Urine None Detected None Detected [facility] Benzodiazepine Screen, Urine None Detected None Detected [facility] Cannabinoids Screen, Urine Positive Abnormal None Detected [facility] Cocaine Screen, Urine None Detected None Detected [facility] DOA Cutoffs, UR See comment. [facility] Comment on above: Drugs of Abuse, Urin e Presumptive Positive Cutoff Concentrations . Amphetamine/Methamphetamine: 1000 ng/ml Barbiturates: 200 ng/ml Benzodiazepines and metabolities: 200 ng/ml Cannabinoids: 50 ng/ml Cocaine/Benzoylecgonine: 300 ng/ml Methadone: 300 ng/ml Opiates: 300 ng/ml Oxycodone/Oxymorphone: 100 ng/ml Interpretation and review of laboratory results Abnormal [facility] Methadone Screen, Urine None Detected None Detected [facility] Opiates Screen, Urine None Detected None Detected [facility] Oxycodone Screen, Urine None Detected None Detected [facility] Comment on above: THESE DRUGS OF ABUSE TESTS ARE PROVIDED A MEDICAL SCREENING ONLY. POSITIVE RESULTS ARE NOT CONFIRMED BY GCMS Drugs of Abuse, Urineon Amphetamines,Ur None Detected Normal None Detected [facility] Comment on above: Performed By: #### D YARED #### Unless otherwise noted, all testing performed by [place] [address] CLIA: [id number] [employer]: Jez Willingham M.D. Barbiturates,Ur None Detected Normal None Detected [facility] Comment on above: Performed By: #### D YARED #### Unless otherwise noted, all testing performed by [place] [address] CLIA: [id number] [employer]: Jez Willingham M.D. Benzodiazepine,Ur None Detected Normal None Detected [facility] Comment on above: Performed By: #### D YARED #### Unless otherwise noted, all testing performed by [place] [address] CLIA: [id number] [employer]: Jez Willingham M.D. Cannabinoids,Ur Positive Abnormal None Detected [facility] Comment on above: Performed By: #### D RUGSCRU #### Unless otherwise noted, all testing performed by [place] [address] CLIA: [id number] [employer]: Jez Willingham M.D. Cocaine,Ur None Detected Normal None Detected [facility] Comment on above: Performed By: #### D RUGSCRU #### Unless otherwise noted, all testing performed by [place] [phone] CLIA: [id number] [employer]: Jez Willingham M.D. DOA Cutoffs See comment. Normal [facility] Comment on above: Result Comment: Drug s of Abuse, Urine Presumptive Positive Cutoff Concentrations . Amphetamine/Methamphetamine: 1000 ng/ml Barbiturates: 200 ng/ml Benzodiazepines and metabolities: 200 ng/ml Cannabinoids: 50 ng/ml Cocaine/Benzoylecgonine: 300 ng/ml Methadone: 300 ng/ml Opiates: 300 ng/ml Oxycodone/Oxymorphone: 100 ng/ml Performed By: #### D RUGSCRU #### Unless otherwise noted, all testing performed by [place] [address] CLIA: [id number] [employer]: Jez Willingham M.D. Methadone,Ur None Detected Normal None Detected [facility] Comment on above: Performed By: #### D RUGSCRU #### Unless otherwise noted, all testing performed by [place] [phone] CLIA: [id number] [employer]: Jez Willingham M.D. Opiates,Ur None Detected Normal None Detected [facility] Comment on above: Performed By: #### D RUGSCRU #### Unless otherwise noted, all testing performed by [place] [address] CLIA: [id number] [employer]: Jez Willingham M.D. Oxycodone, Urine None Detected Normal None Detected [facility] Comment on above: Result Comment: THES E DRUGS OF ABUSE TESTS ARE PROVIDED A MEDICAL SCREENING ONLY. POSITIVE RESULTS ARE NOT CONFIRMED BY GCMS Performed By: #### D RUGSCRU #### Unless otherwise noted, all testing performed by [place] [address] CLIA: [id number] [employer]: Jez Willingham M.D. Otheron 10-03-2018 Interpretation and review of laboratory results Abnormal [facility] Salicylateon 10-03-2018 Salicylate < 2.8 Low 10.0-20.0 [facility] Comment on above: Result Comment: Sali cylate Therapeutic Ranges: Antiplatelet, Antipyretic and Analgesic: 2.0-10.0 mg/dl Anti-inflammatory: 15.0-30.0 mg/dl Toxicity may occur at levels above 20.0 mg/dl Critical: > 30.0 mg/dl Performed By: #### S AL #### Unless otherwise noted, all testing performed by [place] [address] CLIA: [id number] [employer]: Jez Willingham M.D. Salicylate Levelon 9 Interpretation and review of laboratory results Abnormal [facility] Salicylate < 2.8 Low 10 - 20 mg/dL [facility] Comment on above: Salicylate Therapeut ic Ranges: Antiplatelet, Antipyretic and Analgesic: 2.0-10.0 mg/dl Anti-inflammatory: 15.0-30.0 mg/dl Toxicity may occur at levels above 20.0 mg/dl Critical: > 30.0 mg/dl Acetaminophenon 10-02-2018 Acetaminophen mass conc < 2.0 Low 10.0-30.0 [facility] Comment on above: Performed By: #### C BCDIF, ALC, CMET, ACTMN #### Unless otherwise noted, all testing performed by [place] [address] CLIA: [id number] [employer]: Jez Willingham M.D. Acetaminophen Levelon 2018 Acetaminophen mass conc < 2.[address] [facility] Interpretation and review of laboratory results Abnormal [facility] Alcohol, Medicalon 9 Ethanol mass conc Negative Normal [facility] Comment on above: Performed By: #### C BCDIF, ALC, CMET, ACTMN #### Unless otherwise noted, all testing performed by [place] [address] CLIA: [id number] [employer]: Jez Willingham M.D. Ethanol mass conc Negative G% [facility] CBC AND DIFFERENTIALon 10-02 Basophils #/vol (Bld) 0.0 10*3/uL [facility] Basophils/100 WBC (Bld) 0.5 % [facility] Eosinophils #/vol (Bld) 0.0 10*3/uL [facility] Eosinophils/100 WBC (Bld) 0.5 % [facility] Erythrocyte distribution width Ratio (RBC) 12.9 % 10 - 14.3 % [facility] Hematocrit Volume Fraction (Bld) 44.1 % 37.9 - 49.2 % [facility] Hemoglobin mass conc (Bld) 15.1 g/dL 12.9 - 16.9 g/dL [facility] Interpretation and review of laboratory results Abnormal [facility] Lymphocytes #/vol (Bld) 3.5 10*3/uL [facility] Lymphocytes/100 WBC (Bld) 38.8 % [facility] MCH Entitic mass (RBC) 29.3 pg 27.7 - 34.[address] [facility] MCHC mass conc (RBC) 34.2 g/dL 32.9 - 35.5 g/dL [facility] MCV Entitic volume (RBC) 85.[address] [facility] Monocytes #/vol (Bld) 0.6 10*3/uL [facility] Monocytes/100 WBC (Bld) 6.7 % [facility] Neutrophils #/vol (Bld) 4.8 10*3/uL [facility] Platelet mean volume Entitic volume (Bld) 7.[address] [facility] Platelets #/vol (Bld) 548 10*3/uL High [facility] RBC #/vol (Bld) 5.15 10*6/uL [facility] lth Segmented Neut 53.5 % [facility] WBC #/vol (Bld) 9.0 10*3/uL [facility] CBC with Diffon 10-02-2018 Basophils #/vol (Bld) 0.0 K/mcL Normal 0-0.2 [facility] Comment on above: Performed By: #### C BCDIF, ALC, CMET, ACTMN #### Unless otherwise noted, all testing performed by [place] [address] CLIA: [id number] [employer]: eJz Willingham M.D. Basophils/100 WBC (Bld) 0.5 % Normal [facility] Comment on above: Performed By: #### C BCDIF, ALC, CMET, ACTMN #### Unless otherwise noted, all testing performed by [place] [address] CLIA: [id number] [employer]: Jez Willingham M.D. Eosinophils #/vol (Bld) 0.0 K/mcL Normal 0-0.5 [facility] Comment on above: Performed By: #### C BCDIF, ALC, CMET, ACTMN #### Unless otherwise noted, all testing performed by [place] [address] CLIA: [id number] [employer]: Jez Willingham M.D. Eosinophils/100 WBC (Bld) 0.5 % Normal [facility] Comment on above: Performed By: #### C BCDIF, ALC, CMET, ACTMN #### Unless otherwise noted, all testing performed by [place] [address] CLIA: [id number] [employer]: Jez Willingham M.D. Erythrocyte distribution width Ratio (RBC) 12.9 % Normal 10-14.3 [facility] Comment on above: Performed By: #### C BCDIF, ALC, CMET, ACTMN #### Unless otherwise noted, all testing performed by [place] [address] CLIA: [id number] [employer]: Jez Willingham M.D. Hematocrit Volume Fraction (Bld) 44.1 % Normal 37.9-49.2 [facility] Comment on above: Performed By: #### C BCDIF, ALC, CMET, ACTMN #### Unless otherwise noted, all testing performed by [place] [address] CLIA: [id number] [employer]: Jez Willingham M.D. Hemoglobin mass conc (Bld) 15.1 g/dL Normal 12.9-16.9 [facility] Comment on above: Performed By: #### C BCDIF, ALC, CMET, ACTMN #### Unless otherwise noted, all testing performed by [place] [address] CLIA: [id number] [employer]: Jez Willingham M.D. Lymphocytes #/vol (Bld) 3.5 K/mcL Normal 0.9-3.6 [facility] Comment on above: Performed By: #### C BCDIF, ALC, CMET, ACTMN #### Unless otherwise noted, all testing performed by [place] [address] CLIA: [id number] [employer]: Jez Willingham M.D. Lymphocytes/100 WBC (Bld) 38.8 % Normal [facility] Comment on above: Performed By: #### C BCDIF, ALC, CMET, ACTMN #### Unless otherwise noted, all testing performed by [place] [phone] CLIA: [id number] [employer]: Jez Willingham M.D. MCH Entitic mass (RBC) 29.3 pg Normal 27.7-34.6 [facility] Comment on above: Performed By: #### C BCDIF, ALC, CMET, ACTMN #### Unless otherwise noted, all testing performed by [place] [phone] CLIA: [id number] [employer]: Jez Willingham M.D. MCHC mass conc (RBC) 34.2 g/dL Normal 32.9-35.5 [facility] Comment on above: Performed By: #### C BCDIF, ALC, CMET, ACTMN #### Unless otherwise noted, all testing performed by [place] [address] CLIA: [id number] [employer]: Jez Willingham M.D. MCV Entitic volume (RBC) 85.5 fL Normal 82.8-99.3 [facility] Comment on above: Performed By: #### C BCDIF, ALC, CMET, ACTMN #### Unless otherwise noted, all testing performed by [place] [address] CLIA: [id number] [employer]: Jez Willingham M.D. Monocytes #/vol (Bld) 0.6 K/mcL Normal 0.2-0.6 [facility] Comment on above: Performed By: #### C BCDIF, ALC, CMET, ACTMN #### Unless otherwise noted, all testing performed by [place] [address] CLIA: [id number] [employer]: Jez Willingham M.D. Monocytes/100 WBC (Bld) 6.7 % Normal [facility] Comment on above: Performed By: #### C BCDIF, ALC, CMET, ACTMN #### Unless otherwise noted, all testing performed by [place] [phone] CLIA: [id number] [employer]: Jez Willingham M.D. Neutrophils #/vol (Bld) 4.8 K/mcL Normal 1.4-6.8 [facility] Comment on above: Performed By: #### C BCDIF, ALC, CMET, ACTMN #### Unless otherwise noted, all testing performed by [place] [address] CLIA: [id number] [employer]: Jez Willingham M.D. Platelet mean volume Entitic volume (Bld) 7.0 fL Normal 6.6-10.8 [facility] Comment on above: Performed By: #### C BCDIF, ALC, CMET, ACTMN #### Unless otherwise noted, all testing performed by [place] [address] CLIA: [id number] [employer]: Jez Willingham M.D. Platelets #/vol (Bld) 548 K/mcL High 139-354 [facility] Comment on above: Performed By: #### C BCDIF, ALC, CMET, ACTMN #### Unless otherwise noted, all testing performed by [place] [address] CLIA: [id number] [employer]: Jez Willingham M.D. RBC #/vol (Bld) 5.15 M/mcL Normal 4.0-5.5 [facility] Comment on above: Performed By: #### C BCDIF, ALC, CMET, ACTMN #### Unless otherwise noted, all testing performed by [place] [phone] CLIA: [id number] [employer]: Jez Willingham M.D. Segmented Neut % 53.5 % Normal [facility] Comment on above: Performed By: #### C BCDIF, ALC, CMET, ACTMN #### Unless otherwise noted, all testing performed by [place] [address] CLIA: [id number] [employer]: Jez Willingham M.D. WBC #/vol (Bld) 9.0 K/mcL Normal 3.6-10.4 [facility] Comment on above: Performed By: #### C BCDIF, ALC, CMET, ACTMN #### Unless otherwise noted, all testing performed by [place] [address] CLIA: [id number] [employer]: Jez Willingham M.D. Comprehensive Metabolic Pane sunny 10-02-2018 Albumin mass conc 4.5 g/dL Normal 3.2-4.5 [facility] Comment on above: Performed By: #### C BCDIF, ALC, CMET, ACTMN #### Unless otherwise noted, all testing performed by [place] [address] CLIA: [id number] [employer]: Jez Willingham M.D. ALP enzyme act/vol 100 U/L Low 180-700 [facility] Comment on above: Performed By: #### C BCDIF, ALC, CMET, ACTMN #### Unless otherwise noted, all testing performed by [place] [phone] CLIA: [id number] [employer]: Jez Willingham M.D. ALT enzyme act/vol 20 U/L Normal 14-65 [facility] Comment on above: Result Comment: This test result might be falsely depressed or falsely elevated on samples drawn from patients taking Sulfasalazine and Sulfapyridine. Venipuncture should occur prior to taking either of these drugs. Performed By: #### C BCDIF, ALC, CMET, ACTMN #### Unless otherwise noted, all testing performed by [place] [address] CLIA: [id number] [employer]: Jez Willingham M.D. AST enzyme act/vol 13 U/L Normal 0-45 [facility] Comment on above: Result Comment: This test result might be falsely depressed or falsely elevated on samples drawn from patients taking Sulfasalazine and Sulfapyridine. Venipuncture should occur prior to taking either of these drugs. Performed By: #### C BCDIF, ALC, CMET, ACTMN #### Unless otherwise noted, all testing performed by [place] [address] CLIA: [id number] [employer]: Jez Willingham M.D. Bilirubin mass conc 0.8 mg/dL Normal 0.3-1.2 [facility] Comment on above: Performed By: #### C BCDIF, ALC, CMET, ACTMN #### Unless otherwise noted, all testing performed by [place] [address] CLIA: [id number] [employer]: Jez Willingham M.D. Calcium mass conc 8.9 mg/dL Normal 8.4-10.2 [facility] Comment on above: Performed By: #### C BCDIF, ALC, CMET, ACTMN #### Unless otherwise noted, all testing performed by [place] [address] CLIA: [id number] [employer]: Jez Willingham M.D. Chloride molar conc 106 mmol/L Normal 98-108 [facility] Comment on above: Performed By: #### C BCDIF, ALC, CMET, ACTMN #### Unless otherwise noted, all testing performed by [place] [address] CLIA: [id number] [employer]: Jez Willingham M.D. CO2 molar conc 25 mmol/L Normal 21-32 [facility] Comment on above: Performed By: #### C BCDIF, ALC, CMET, ACTMN #### Unless otherwise noted, all testing performed by [place] [address] CLIA: [id number] [employer]: Jez Willingham M.D. Creatinine mass conc 0.89 mg/dL Normal 0.50-1.00 [facility] Comment on above: Performed By: #### C BCDIF, ALC, CMET, ACTMN #### Unless otherwise noted, all testing performed by [place] [address] CLIA: [id number] [employer]: Jez Willingham M.D. GFR/1.73 sq M predicted among blacks MDRD vol rate/area (S/P/Bld) Unable to calculate eGFR due to patient age <18 years. Normal [facility] Comment on above: Result Comment: Afri can [place] GFR Calc Performed By: #### C BCDIF, ALC, CMET, ACTMN #### Unless otherwise noted, all testing performed by [place] [address] CLIA: [id number] [employer]ician: Jez Willingham M.D. GFR/1.73 sq M predicted among non-blacks MDRD vol rate/area (S/P/Bld) Unable to calculate eGFR due to patient age <18 years. [facility] Comment on above: Result Comment: Non- GFR Calc Performed By: #### C BCDIF, ALC, CMET, ACTMN #### Unless otherwise noted, all testing performed by [place] [address] CLIA: [id number] [employer]: Jez Willingham M.D. Glucose mass conc 187 mg/dL High 70-99 [facility] Comment on above: Result Comment: This test result might be falsely depressed or falsely elevated on samples drawn from patients taking Sulfasalazine and Sulfapyridine. Venipuncture should occur prior to taking either of these drugs. Performed By: #### C BCDIF, ALC, CMET, ACTMN #### Unless otherwise noted, all testing performed by [place] [address] CLIA: [id number] [employer]ician: Jez Willingham M.D. Potassium molar conc 3.0 mmol/L Low 3.5-5.1 [facility] Comment on above: Performed By: #### C BCDIF, ALC, CMET, ACTMN #### Unless otherwise noted, all testing performed by [place] [address] CLIA: [id number] [employer]: Jez Willingham M.D. Protein mass conc 7.7 g/dL Normal 6.0-8.0 [facility] Comment on above: Performed By: #### C BCDIF, ALC, CMET, ACTMN #### Unless otherwise noted, all testing performed by [place] [address] CLIA: [id number] [employer]ician: Jez Willingham M.D. Sodium molar conc 141 mmol/L Normal 135-145 [facility] Comment on above: Performed By: #### C BCDIF, ALC, CMET, ACTMN #### Unless otherwise noted, all testing performed by [place] [address] CLIA: [id number] [employer]ician: Jez Willingham M.D. Urea nitrogen mass conc 11 mg/dL Normal 8-25 [facility] Comment on above: Performed By: #### C BCDIF, ALC, CMET, ACTMN #### Unless otherwise noted, all testing performed by [place] [address] CLIA: [id number] [employer]ician: Jez Willingham M.D. Albumin mass conc 4.5 g/dL 3.2 - 4.5 g/dL [facility] ALP enzyme act/vol 100 U/L Low 180 - 700 U/L [facility] ALT enzyme act/vol 20 U/L 14 - 65 U/L [facility]alt Comment on above: This test result syeda ht be falsely depressed or falsely elevated on samples drawn from patients taking Sulfasalazine and Sulfapyridine. Venipuncture should occur prior to taking either of these drugs. AST enzyme act/vol 13 U/L 0 - 45 U/L [facility] Comment on above: This test result syeda ht be falsely depressed or falsely elevated on samples drawn from patients taking Sulfasalazine and Sulfapyridine. Venipuncture should occur prior to taking either of these drugs. Bilirubin mass conc 0.8 mg/dL 0.3 - 1. 2 mg/dL [facility] Calcium mass conc 8.9 mg/dL 8.4 - 10.2 mg/dL [facility] Chloride molar conc 106 mmol/L 98 - 108 mmol/L [facility] CO2 molar conc 25 mmol/L 21 - 32 mmol/L [facility] Creatinine mass conc 0.89 mg/dL 0.5 - 1 mg/dL [facility] GFR/1.73 sq M predicted among blacks MDRD vol rate/area (S/P/Bld) Unable to calculate eGFR due to patient age <18 years. ml/min/1.73s q.m [facility] Comment on above: GFR Calc GFR/1.73 sq M predicted among non-blacks MDRD vol rate/area (S/P/Bld) Unable to calculate eGFR due to patient age <18 years. ml/min/1.73s q.m [facility] Comment on above: Non- GFR Calc Glucose mass conc 187 mg/dL High 70 - 99 mg/dL [facility] Comment on above: This test result syeda ht be falsely depressed or falsely elevated on samples drawn from patients taking Sulfasalazine and Sulfapyridine. Venipuncture should occur prior to taking either of these drugs. Interpretation and review of laboratory results Abnormal [facility] Potassium molar conc 3.0 mmol/L Low 3.5 - 5.1 mmol/L [facility] Protein mass conc 7.7 g/dL 6 - 8 g/dL [facility] Sodium molar conc 141 mmol/L 135 - 145 mmol/L [facility] Urea nitrogen mass conc 11 mg/dL 8 - 25 mg/dL [facility] DRUGS OF ABUSE SCREEN, URINE on 10-02-2018 Amphetamine Screen, Urine None Detected None Detected [facility] Barbiturate Screen, Urine None Detected None Detected [facility] Benzodiazepine Screen, Urine None Detected None Detected [facility] Cannabinoids Screen, Urine Positive Abnormal None Detected [facility] Cocaine Screen, Urine None Detected None Detected [facility] DOA Cutoffs, UR See comment. [facility] Comment on above: Drugs of Abuse, Urin e Presumptive Positive Cutoff Concentrations . Amphetamine/Methamphetamine: 1000 ng/ml Barbiturates: 200 ng/ml Benzodiazepines and metabolities: 200 ng/ml Cannabinoids: 50 ng/ml Cocaine/Benzoylecgonine: 300 ng/ml Methadone: 300 ng/ml Opiates: 300 ng/ml Oxycodone/Oxymorphone: 100 ng/ml Interpretation and review of laboratory results Abnormal [facility] Methadone Screen, Urine None Detected None Detected [facility] Opiates Screen, Urine None Detected None Detected [facility] Oxycodone Screen, Urine None Detected None Detected [facility] Comment on above: THESE DRUGS OF ABUSE TESTS ARE PROVIDED A MEDICAL SCREENING ONLY. POSITIVE RESULTS ARE NOT CONFIRMED BY GCMS Drugs of Abuse, Urineon Amphetamines,Ur None Detected Normal None Detected [facility] Comment on above: Performed By: #### D GALRU #### Unless otherwise noted, all testing performed by [place] [address] CLIA: [id number] [employer] Technician: Jez Willingham M.D. Barbiturates,Ur None Detected Normal None Detected [facility] Comment on above: Performed By: #### D RUGSCRU #### Unless otherwise noted, all testing performed by [place] [address] CLIA: [id number] [employer] Technician: Jez Willingham M.D. Benzodiazepine,Ur None Detected Normal None Detected [facility] Comment on above: Performed By: #### D RUGSCRU #### Unless otherwise noted, all testing performed by [place] [address] CLIA: [id number] [employer] Technician: Jez Willingham M.D. Cannabinoids,Ur Positive Abnormal None Detected [facility] Comment on above: Performed By: #### D RUGSCRU #### Unless otherwise noted, all testing performed by [place] [phone] CLIA: [id number] [employer] Technician: Jez Willingham M.D. Cocaine,Ur None Detected Normal None Detected [facility] Comment on above: Performed By: #### D RUGSCRU #### Unless otherwise noted, all testing performed by [place] [phone] CLIA: [id number] [employer] Technician: Jez Willingham M.D. DOA Cutoffs See comment. Normal [facility] Comment on above: Result Comment: Drug s of Abuse, Urine Presumptive Positive Cutoff Concentrations . Amphetamine/Methamphetamine: 1000 ng/ml Barbiturates: 200 ng/ml Benzodiazepines and metabolities: 200 ng/ml Cannabinoids: 50 ng/ml Cocaine/Benzoylecgonine: 300 ng/ml Methadone: 300 ng/ml Opiates: 300 ng/ml Oxycodone/Oxymorphone: 100 ng/ml Performed By: #### D RUGSCRU #### Unless otherwise noted, all testing performed by [place] [address] CLIA: [id number] [employer] Technician: Jez Willingham M.D. Methadone,Ur None Detected Normal None [facility] Comment on above: Performed By: #### D RUGSCRU #### Unless otherwise noted, all testing performed by [address] [address] CLIA: [id number] [employer] Technician: Jez Willingham M.D. Opiates,Ur None Detected Normal None Detected [facility] Comment on above: Performed By: #### D YARED #### Unless otherwise noted, all testing performed by [place] [address] CLIA: [id number] [employer] Technician: Jez Willingham M.D. Oxycodone, Urine None Detected Normal None Detected [facility] Comment on above: Result Comment: THES E DRUGS OF ABUSE TESTS ARE PROVIDED A MEDICAL SCREENING ONLY. POSITIVE RESULTS ARE NOT CONFIRMED BY GCMS Performed By: #### D YARED #### Unless otherwise noted, all testing performed by [place] [address] CLIA: [id number] [employer] Technician: Jez Willingham M.D. Salicylateon 10-02-2018 Salicylate < 2.8 Low 10.0-20.0 [facility] Comment on above: Result Comment: Sali cylate Therapeutic Ranges: Antiplatelet, Antipyretic and Analgesic: 2.0-10.0 mg/dl Anti-inflammatory: 15.0-30.0 mg/dl Toxicity may occur at levels above 20.0 mg/dl Critical: > 30.0 mg/dl Performed By: #### S AL #### Unless otherwise noted, all testing performed by [place] [address] CLIA: [id number] [employer] Technician: Jez Willingham M.D. Salicylate Levelon 9 Interpretation and review of laboratory results Abnormal [facility] Salicylate < 2.8 Low 10 - 20 mg/dL [facility] Comment on above: Salicylate Therapeut ic Ranges: Antiplatelet, Antipyretic and Analgesic: 2.0-10.0 mg/dl Anti-inflammatory: 15.0-30.0 mg/dl Toxicity may occur at levels above 20.0 mg/dl Critical: > 30.0 mg/dl INFLUENZA A AND B, PCRon FLUBV Ag IA Ql (Unsp spec) Negative NEGATIVE [employer] Comment on above: TESTING PERFORMED BY WLIVER Testing performed at [place] [address] INFLUENZA A Negative NEGATIVE [employer] RAPID STREP A ANTIGENon 09-01 Interpretation and review of laboratory results Abnormal [facility] pyogenes Ag Ql (Throat) Positive Abnormal NEGATIVE [employer] Comment on above: TESTING PERFORMED BY [facility]ILVER Result called to read back by: Kacie BURNETT 09/20/2018 @ 21:12 by SG Testing performed at [place] [address] Emergency Department Summary on 05-18-2017 Emergency Department [facility] [id number] [place], [place] [address]Hbmmhlfsz Department Lrotiba81/19/17 0918MR#: [id number] Acct: [id number]: CHRISTIAN CARRASQUILLO Rep #: [id number]: 2000 17 From: Hudson Millan MDPCP: Care Physician,No Primary Status: REG ER- ER Visit SummaryDate of Service: 05/18/17Chief Complaint: Injury left long finger yesterday during football practiceHistory of Present Illness: The patient is a 17 M who is right-handed presents with injury tothe left long finger. This occurred last evening. He states he hit the finger on anotherplayer's helmet. He localizes the pain to the PIP joint. He also reports swellingdiscoloration. He complains of pain with movement. He denies any paresthesia, anesthesia ormotor weakness. He denies prior injury to the digit.Physical Examination: Vital signs were noted and pressure is elevated 136/80. The left longfinger is swollen discolored with pain to palpation over the PIP joint. He has significantdiscomfort on the volar surface. Stressing of the collateral ligaments does not elicit anylaxity. There is a good endpoint. He is able to extend at the PIP and DIP joint. The flexordigitorum superficialis and the flexor digitorum profundus are intact. Sensation is normal.There is no subungual hematoma noted. There is no rotational malalignment.Test Results: Three-view x-ray of the left long finger was obtained. On the oblique film thereappears to be a small avulsion fracture.Emergency Department Course and Treatment: An x-ray was obtained to evaluate for fracture.Clinically patient has a volar plate injury.Treatment Plan: Extension block splint and referral to orthopedics, Dr. Maggy Smith whopatient has seen for prior fracturesDisposition: Discharged to home with mother and orthopedic follow-upImpression: Volar plate injury with avulsion fractureED Disposition- Plan for ED Patient:Disposition: Home or Assisted LivingChief Complaint: Upper Extremity InjuryInstructions: ED Fx Finger ClosedReferrals:Care Physician,No Primary [Primary Care Provider] -Britta uGnderson DO [STAFF PHYSICIAN] - 5-7 DaysWhat to do if you have ProblemsFor any increased pain, shortness of breath, bleeding, nausea or vomiting, chest pain, or anyunexpected problems, contact your Primary Care Provider. Call [facility] ([phone])or report to the closest Emergency Room.Call 911 if necessary.05/18/17 0936 Date Hudson Millan [facility] Signature (If Indicated): Date CC: Britta Gunderson DO; No Primary Care Physician [facility] Finger(s) Min 2 Viewson 10- Finger(s) Min 2 Views [facility] [id number] DEION EMERY [id number](s) Min 2 ViewsMR#: [id number] Acct: [id number]: CHRISTIAN CARRASQUILLO Rep #: [id number]: 2000 M 17 From: Mika Harry MDPCP: Care Physician,No Primary Status: REG ERStudy: Finger(s) Min 2 Views Date of Exam: 05/18/17Exam# [id number] Ordering Dr: Hudson Millan MDSTUDY: X-RAY - LEFT HAND, ATTENTION SECOND AND THIRD FINGERSREASON FOR EXAM: Male, 17 years old. Pain and swelling following afootball injury.TECHNIQUE: 3 view(s) of the finger were obtained.COMPARISON: None. FINDINGS:N ormal metacarpal head. Normal metacarpophalangeal joint.Normal proximal phalanx. Normal middle phalanx. Normal distal phalanx.Normal proximal interphalangeal joint. Normal distal interphalangealjoint.____ ORDER #: [id number] RAD/Finger(s) Min 2 ViewsIMPRESSION:Normal x-ray examination of the finger.Electronically Signed:Mika Harry MD at 9:47 EDTTel [phone], Service support , SZ: No Primary Care Physician; Hudson Millan MD Crm Marketing Manager:Signed Normal [facility] Vital Signs Date Time Vital Sign Value Performing Clinician Chantale cross 12-15-2023 16:41-0400 Body height 180.3 cm Lucio Obrien DO Work Phone: [email or web address] 12-15-2023 16:40-0400 Body temperature 98.29 [degF] Lucio Obrien DO Work Phone: [facility] 12-15-2023 16:40-0400 Diastolic blood pressure 70 mm[Hg] Lucio Obrien DO Work Phone: [facility] 12-15-2023 16:40-0400 Heart rate 78 /min Lucio Obrien DO Work Phone: [facility] 12-15-2023 16:40-0400 Respiratory rate 17 /min Lucio Obrien DO Work Phone: [facility] 12-15-2023 16:40-0400 SaO2% (BldA) [Mass fraction] 99 % Lucio Obrien DO Work Phone: [facility] 12-15-2023 16:40-0400 Systolic blood pressure 127 mm[Hg] Lucio Obrien DO Work Phone: [facility] 03-31-2023 23:11-0400 Body height 180.3 cm Anand Bhardwaj MD Work Phone: [facility] 03-31-2023 23:10-0400 Body temperature 97.9 [degF] Anand Bhardwaj MD Work Phone: [facility] 03-31-2023 23:10-0400 Diastolic blood pressure 72 mm[Hg] Anand Bhardwaj MD Work Phone: [facility] 03-31-2023 23:10-0400 Heart rate 71 /min Anand Bhardwaj MD Work Phone: [facility] 03-31-2023 23:10-0400 Respiratory rate 18 /min Anand Bhardwaj MD Work Phone: [facility] 03-31-2023 23:10-0400 SaO2% (BldA) [Mass fraction] 98 % Anand Bhardwaj MD Work Phone: [facility] 03-31-2023 23:10-0400 Systolic blood pressure 141 mm[Hg] Anand Bhardwaj MD Work Phone: [facility] 12-09-2022 18:11-0400 Body height 180.3 cm ROSA Valle Jr. Work Phone: [facility] 12-09-2022 18:10-0400 Diastolic blood pressure 87 mm[Hg] ROSA Valle Jr. Work Phone: [facility] 12-09-2022 18:10-0400 Heart rate 79 /min Jaelyn Terry Jr. PA Work Phone: [facility] 12-09-2022 18:10-0400 Respiratory rate 16 /min Jaelyn Terry Jr. PA Work Phone: [facility] 12-09-2022 18:10-0400 SaO2% (BldA) [Mass fraction] 100 % ROSA Valle Jr. Work Phone: [facility] 12-09-2022 18:10-0400 Systolic blood pressure 141 mm[Hg] ROSA Valle Jr. Work Phone: [facility] 04-10-2022 13:32-0400 Body height 180.3 cm Jaelyn Terry Jr. PA Work Phone: [facility] 04-10-2022 13:31-0400 Body temperature 98.1 [degF] ROSA Valle Jr. Work Phone: [facility] 04-10-2022 13:31-0400 Diastolic blood pressure 74 mm[Hg] ROSA Valle Jr. Work Phone: [facility] 04-10-2022 13:31-0400 Heart rate 100 /min Jaelyn Terry Jr. PA Work Phone: [facility] 04-10-2022 13:31-0400 Respiratory rate 17 /min Jaelyn Terry Jr. PA Work Phone: [facility] 04-10-2022 13:31-0400 SaO2% (BldA) [Mass fraction] 98 % ROSA Valle Jr. Work Phone: [facility] 04-10-2022 13:31-0400 Systolic blood pressure 131 mm[Hg] ROSA Valle Jr. Work Phone: [facility] 11-24-2020 02:01-0400 Body height 177.8 cm Lucio Obrien DO Work Phone: [facility] 11-24-2020 02:01-0400 Body mass index (BMI) [Ratio] 20.09 kg/m2 Lucio Obrien DO Work Phone: [facility] 11-24-2020 02:01-0400 Body weight 63.5 kg Lucio Obrien DO Work Phone: [facility] 11-24-2020 01:32-0400 Body temperature 98.71 [degF] Lucio Obrien DO Work Phone: [facility] 11-24-2020 01:32-0400 Diastolic blood pressure 55 mm[Hg] Lucio Obrien DO Work Phone: [facility] 11-24-2020 01:32-0400 Heart rate 103 /min Lucio Obrien DO Work Phone: [facility] 11-24-2020 01:32-0400 Respiratory rate 16 /min Lucio Obrien DO Work Phone: [facility] 11-24-2020 01:32-0400 SaO2% (BldA) [Mass fraction] 99 % Lucio Obrien DO Work Phone: [facility] 11-24-2020 01:32-0400 Systolic blood pressure 129 mm[Hg] Lucio Obrien DO Work Phone: [facility] 03-20-2020 23:15-0400 BP Diastolic 65 mm[Hg] [facility] 03-20-2020 23:15-0400 BP Systolic 131 mm[Hg] [facility] 03-20-2020 23:15-0400 Pulse (Heart Rate) 80 /min [facility] 03-20-2020 23:15-0400 Pulse Oximetry 100 % [facility] 03-20-2020 23:15-0400 Respiratory Rate 16 /min [facility] 03-20-2020 22:36-0400 BMI (Body Mass Index) 20.92 kg/m2 [facility] 03-20-2020 22:36-0400 Body weight 68.04 kg [facility] 03-20-2020 22:36-0400 Height 180.3 cm [facility] 03-20-2020 22:35-0400 Body Temperature 98.01 [degF] [facility] 09-08-2019 02:08-0500 Height 180.3 cm [facility] 09-08-2019 02:07-0500 Body Temperature 98.8 [degF] [facility] 09-08-2019 02:07-0500 BP Diastolic 69 mm[Hg] [facility] 09-08-2019 02:07-0500 BP Systolic 144 mm[Hg] [facility] 09-08-2019 02:07-0500 Pulse (Heart Rate) 96 /min [facility] 09-08-2019 02:07-0500 Pulse Oximetry 97 % [facility] 09-08-2019 02:07-0500 Respiratory Rate 16 /min [facility] 08-31-2019 11:05-0500 Height 180.3 cm [facility] 08-31-2019 11:04-0500 Body Temperature 98.1 [degF] [facility] 08-31-2019 11:04-0500 BP Diastolic 77 mm[Hg] [facility] 08-31-2019 11:04-0500 BP Systolic 134 mm[Hg] [facility] 08-31-2019 11:04-0500 Pulse (Heart Rate) 76 /min [facility] 08-31-2019 11:04-0500 Pulse Oximetry 98 % [facility] 08-31-2019 11:04-0500 [facility] 16 /[facility] 21:50-0500 Body Temperature 100 [degF] [facility] 09-20-2018 21:50-0500 BP Diastolic 72 mm[Hg] [facility] 09-20-2018 21:50-0500 BP Systolic 126 mm[Hg] [facility] 09-20-2018 21:50-0500 Pulse (Heart Rate) 92 /min [facility] 09-20-2018 21:50-0500 Respiratory Rate 15 /min [facility] 09-20-2018 21:15-0500 Pulse Oximetry 98 % [facility] 09-20-2018 20:15-0500 BMI (Body Mass Index) 20.12 kg/m2 [facility] 09-20-2018 20:15-0500 Height 177.8 cm [facility] 09-20-2018 20:15-0500 Weight 63.6 kg [facility] Encounters Encounter Date Encounter Type Care Provider Facility Start: 11-04-2024 End: 11-04-2024 Emergency department patient visit [facility] Facility:[facility] Start: 12-15-2023 End: 12-15-2023 Emergency department patient visit JAELYN TERRY JR. [facility] Start: 12-15-2023 End: 12-15-2023 Emergency department patient visit Lucio Obrien DO Work Phone: [facility] Start: 04-01-2023 End: 04-01-2023 Emergency department patient visit ANAND BHARDWAJ [facility] Start: 03-31-2023 End: 04-01-2023 Emergency department patient visit Anand Bhardwaj MD Work Phone: [facility] Start: 12-09-2022 End: 12-09-2022 Emergency department patient visit ROSA Valle Jr. Work Phone: [facility] Start: 04-10-2022 End: 04-10-2022 Emergency department patient visit ROSA Valle Jr. Work Phone: [facility] Start: 11-24-2020 End: 11-24-2020 Emergency department patient visit Lucio Obrien DO Work Phone: [facility] Start: 03-20-2020 End: 03-21-2020 Emergency department patient visit Anival Middleton Work Phone: [facility] Start: 09-08-2019 End: 09-08-2019 Emergency department patient visit Anival Middleton Work Phone: [facility] Start: 08-31-2019 End: 08-31-2019 Emergency department patient visit Gordo Petersen Work Phone: [facility] Start: 10-02-2018 End: 10-04-2018 Emergency department patient visit [facility] Facility:[place] Start: 10-02-2018 End: 10-02-2018 Patient encounter procedure Generic [place] [facility] Start: 09-20-2018 End: 09-20-2018 Emergency department patient visit [facility] Start: 05-18-2017 End: 05-18-2017 Emergency department patient visit Hudson Millan Facility:[facility] Procedures Date Procedure Procedure Detail Performing Clinician Start: 12-15-2023 Iaadiadoo streptococ cus group a Angelika I Meftah [employer] DES[employer] LEAD[employer]BARKER PEELER Work Phone: Start: 04-10-2022 Radiologic examinati on knee 3 views Paolo Hein DO Work Phone: Start: 03-20-2020 Urine drug screening Ba melody Kane Work Phone: Start: 03-20-2020 Plain chest X-ray Tim sonya Kane Work Phone: Start: 03-20-2020 Assay of troponin quantitative Anivalsonya Middleton Work Phone: Start: 03-20-2020 Complete blood count with white cell differential, automated Anivalsonya Middleton Work Phone: Start: 03-20-2020 Comprehensive metabo lic panel Anival Ambrizcristy Work Phone: Start: 03-20-2020 Fibrin dgradj produc ts d-dimer quantitative Anival Kane Work Phone: Start: 03-20-2020 Prothrombin time Anival Middleton Work Phone: Start: 03-20-2020 Thromboplastin time partial plasma/whole blood Anival Middleton Work Phone: Start: 09-08-2019 Iaadiadoo streptococ cus group a Anival Kane Work Phone: Start: 09-08-2019 Throat culture Anival Daniel mckay Work Phone: Start: 10-03-2018 Acetaminophen [Mass/ volume] in Serum or Plasma Azul Jorge Work Phone: Start: 10-03-2018 Basic metabolic 2000 panel - Serum or Plasma Azul Jorge Work Phone: Start: 10-03-2018 Salicylates [Mass/vo lume] in Serum or Plasma Azul Jorge Work Phone: Start: 10-03-2018 Drugs of abuse urine screening test Azul Jorge Work Phone: Start: 10-03-2018 Drugs of abuse urine screening test Benja Wakefield Work Phone: Start: 10-03-2018 Acetaminophen [Mass/ volume] in Serum or Plasma Benja Aguilarn Ashu Work Phone: Start: 10-03-2018 Complete blood count with white cell differential, manual Benja Steele Crouse Work Phone: Start: 10-03-2018 Comprehensive metabo lic 2000 panel - Serum or Plasma Benja Aguilarn Powderly Work Phone: Start: 10-03-2018 Ethanol [Mass/volume ] in Serum or Plasma Benja Aguilarn Powder[place] Work Phone: Start: 10-03-2018 Salicylates [Mass/vo lume] in Serum or Plasma Benja Matutewn Powderly Work Phone: Start: 09-21-2018 Iaadiadoo streptococ cus group a Refugio Parada Work Phone: Start: 09-21-2018 INFLUENZA A AND B, PCR Anival Middleton Work Phone: Plan of Treatment Date Care Activity Detail Author Start: 03-31-2024 Influenza vaccination INFLUENZ A VACCINE (Season Ended) [facility] Start: 06-17-2023 Tetanus vaccination TETANUS [facility] Start: 03-31-2023 COVID-19 VACCINE ( season) COVID-19 VACCINE ( season) [facility] Start: 03-31-2023 Influenza vaccination A [facility] Start: 03-31-2022 Influenza vaccination INFLUENZA VACC INE (#1) [facility] Start: 2021 Third diphtheria, te tanus and acellular pertussis (DTaP) vaccination TDAP (ADULT) [facility] Start: 03-31-2021 Influenza vaccination INFLUENZ A VACCINE (Season Ended) [facility] Start: 2020 Tetanus vaccination TETANUS [facility] Start: 03-31-2020 Influenza vaccination INFLUENZA VACC INE (#1) [facility] Start: 03-31-2019 Influenza vaccination INFLUENZA VACC INE (#1) [facility] Start: 2018 COVID-19 VACCINE (1) COVID-19 VACCIN E (1) [facility] Start: 2018 Meningococcal conjug ate vaccination MCV4 VACCINE (1 - 2-dose series) [facility] Start: 03-31-2018 Influenza vaccination INFLUENZA VACC INE (#1) [facility] Start: 2017 HIV screening HIV SCREENING DISCUSSI ON [facility] Start: 2017 Vaccination for susana n papillomavirus HPV VACCINE ADOL (1 - Male 3-dose series) [facility] Start: 2015 HIV screening HIV SCREENING DISCUSSI ON [facility] Start: 2015 Varicella vaccination VARICELL A VACCINE (1 of 2 - 13+ 2-dose series) [facility] Start: 2013 Vaccination for susana n papillomavirus HPV VACCINE ADOL (1 - Male 2-dose series) [facility] Start: 2009 DTAP/TDAP/TD VACCINE (1 - Tdap) DTAP/TDAP/TD VACCINE (1 - Tdap) [facility] Start: 2008 PNEUMOCOCCAL VACCINE SERIES (1 - PCV) PNEUMOCOCCAL VACCINE SERIES (1 - PCV) [facility] Start: 2003 Hepatitis A immunization HEP A VACCINE (1 of 2 - 2-dose series) [facility] Start: 2003 Miaarlx-jtiic-bvjzga a vaccination MMR VACCINE (1 of 2 - Standard series) [facility] Start: 2003 Varicella vaccination VARICELL A VACCINE (1 of 2 - 2-dose childhood series) [facility] Start: 2002 COVID-19 VACCINE (#1) COVID-19 VACCI NE (#1) [facility] Start: 2002 Inactivated poliovir us vaccine (product) [facility] Start: 2002 Hepatitis B vaccination HEP B VACCINE (1 of 3 - 3-dose primary series) [facility] Start: 2002 Hepatitis C antibody , confirmatory test HEPATITIS C VIRUS SCREENING [facility] Start: 2002 Hepatitis C screening HEPATITI S C VIRUS SCREENING [facility] End: 03-20-2020 Standard ECG ECG ECG STAT One Time for 1 Occurrences starting 03/20/2020 until 03/20/2020 [facility] Comment on above: One Time for 1 Occur rences starting 03/20/2020 until 03/20/2020 Throat culture CULTURE THROAT Microbiology STAT 09/08/2019 1:50 AM EST [facility] End: 12-15-2023 Throat culture [facility] Comment on above: One Time for 1 Occur rences starting 12/15/2023 until 12/15/2023 Payers Date Payer Category Payer Unknown [id number] 2019 Unknown [employer] xxxxxxxxxxx 2019-Present xxxxxxxxxxx [id number] 2019 Unknown [employer] [id number] 2019-Present [id number] 2019 Unknown [id number] 2019 Unknown [id number] 2002 Unknown [id number] 2002 Unknown [id number] Private Health Insurance Unknown [id number] Unknown [id number] Social History Date Type Detail Facility Start: 09-20-2018 Tobacco smoking status NHIS Never sm oker [facility] Start: 09-20-2018 End: 09-08-2019 History SDOH Alcohol Frequency 1 [facility] Start: 2002 Sex Assigned At Not on file [facility] Start: 08-31-2019 End: 09-08-2019 Tobacco smoking status MOIS Current some day smoker [facility] History of tobacco use Cigarette Smoker [facility] Start: 09-08-2019 End: 12-15-2023 Alcohol intake Lifetime non-drinker (finding) [facility] Start: 08-31-2019 End: 12-09-2022 Tobacco Comment Smokes once in a blue leung [facility] Start: 03-20-2020 End: 12-09-2022 Tobacco use and exposure Never used [facility] Start: 03-31-2022 End: 12-09-2022 Exposure to SARS-CoV-2 (event) Not sure [facility] Exposure to SARS-CoV -2 (event) Unable to assess [facility] Start: 12-09-2022 Tobacco smoking status MOIS Ex-smoke r [facility] History of tobacco use Current smoker [facility] Start: 09-20-2018 End: 12-15-2023 History of Social function [facility] Start: 09-20-2018 End: 12-15-2023 Alcohol Use Disorder Identification Test - Consumption [AUDIT-C] [facility] Frequency of Alcohol Consumption Never [facility] Clinical Notes 11-24-2020 to 12-15-2023 Celia Maher RN - 12/15/2023 5:30 PM Sukumar Maher RN - 12/15/2023 5:30 PM Sukumar Maher RN - 12/15/2023 5:20 PM Sukumar Maher RN - 12/15/2023 4:52 PM EDTDischarge InstructionsAttachments Note Date & Type Note Facility 12-15-2023 Emergency department Note Printed off AVS, provided to patient, reviewed discharged instructions, denies furthers needs or concerns at present time. Is aware of faxed scripts to pharmacy of choice, spoke to dr. Obrien to switch to [facility] in [place], stressed the importance of taking full course of Atb, with food, is aware of potential side effects. PRN Tylenol and motrin. Encouraged to follow up as directed, to call in or return to nearest ER if conditions worsens. Demonstrates verbal understanding. Collected personal possessions. [facility] 12-15-2023 Emergency department Note Printed off AVS, provided to patient, reviewed discharged instructions, denies furthers needs or concerns at present time. Is aware of faxed scripts to pharmacy of choice, spoke to dr. Obrien to switch to [facility] in [place], stressed the importance of taking full course of Atb, with food, is aware of potential side effects. PRN Tylenol and motrin. Encouraged to follow up as directed, to call in or return to nearest ER if conditions worsens. Demonstrates verbal understanding. Collected personal possessions. Dr. Obrien at bedside Per patient, cold-like symptoms for 3 days, cough, sore throat and congestion, c/o green sputum, is worried about giving his streph, swab collected, no additional complaints, call light within reach. Emergency Department Report [facility] EMERGENCY MEDICINE Service Date:.12/15/23 PCP: Jaelyn Terry Jr. Chief Complaint: Chief Complaint Patient presents with Sore Throat Sore throat, cough, congestion x 3 days. GEE Carrasquillo is a 23 y.o. male presents to the ED today due to sore throat. Presents to the ER with complaints of runny nose congestion and cough that started couple of days ago. Started with sore throat this morning. No known exposure to anyone sick. No known exposure to anyone with strep. Patient states he is healthy. Does not take any prescription meds. Nonsmoker. Review of Systems: Review of Systems Constitutional: Negative for chills and fever. HENT: Positive for congestion, postnasal drip, rhinorrhea and sore throat. Negative for sinus pressure, sinus pain, trouble swallowing and voice change. Eyes: Negative for discharge, redness and visual disturbance. Respiratory: Positive for cough. Negative for shortness of breath and wheezing. Cardiovascular: Negative for chest pain, palpitations and leg swelling. Gastrointestinal: Negative for abdominal pain, nausea and vomiting. Genitourinary: Negative for flank pain. Musculoskeletal: Negative for back pain and neck pain. Skin: Negative for pallor and rash. Neurological: Negative for dizziness, weakness, numbness and headaches. All other systems reviewed and are negative. Past Medical History: Past Medical History: Diagnosis Date Anxiety Past Surgical History: No past surgical history on file. Allergies: No Known Allergies Medications: Discharge Medication List as of 12/15/2023 5:20 PM START taking these medications Details azithromycin 500 MG tablet Take 1 tablet by mouth daily for 5 days. Normal Disp-5 tablet, R-0 fluticasone 50 MCG/ACT Suspension nasal spray 2 sprays per nostril BID for 7 days. Normal Disp-16 g, R-0 pseudoephedrine-brompheniramine- dextromethorphan 30-2-10 MG/5ML Syrup Take 5 mL by mouth every 6 hours as needed for Cold Symptoms, Cough, Congestion or Rhinitis. Normal Disp-118 mL, R-0 STOP taking these medications naproxen 500 MG tablet Comments: Reason for Stopping: Family History: History reviewed. No pertinent family history. Social History: Social History Socioeconomic History Marital status: Single Spouse name: Not on file Number of children: Not on file Years of education: Not on file Highest education level: Not on file Occupational History Not on file Tobacco Use Smoking status: Former Types: Cigarettes Smokeless tobacco: Never Tobacco comments: Smokes once in a blue leung Vaping Use Vaping status: Every Day Substance and Sexual Activity Alcohol use: Never Drug use: Not Currently Frequency: 7.0 times per week Types: Marijuana Comment: States daily use Sexual activity: Not on file Other Topics Concern Not on file Social History Narrative Not on file Social Determinants of Health Financial Resource Strain: Not on file Food Insecurity: Not on file Transportation Needs: Not on file Physical Activity: Not on file Stress: Not on file Social Connections: Not on file Intimate Partner Violence: Not on file Housing Stability: Not on file Physical Exam: Physical Exam Vitals and nursing note reviewed. Constitutional: General: He is not in acute distress. Appearance: He is well-developed and normal weight. He is not ill-appearing, toxic-appearing or diaphoretic. HENT: Head: Normocephalic and atraumatic. Right Ear: Tympanic membrane normal. Left Ear: Tympanic membrane normal. Nose: Congestion and rhinorrhea present. Mouth/Throat: Mouth: Mucous membranes are moist. No oral lesions. Pharynx: Oropharynx is clear. Posterior oropharyngeal erythema present. No pharyngeal swelling, oropharyngeal exudate or uvula swelling. Tonsils: No tonsillar exudate or tonsillar abscesses. Eyes: Conjunctiva/sclera: Conjunctivae normal. Pupils: Pupils are equal, round, and reactive to light. Cardiovascular: Rate and Rhythm: Normal rate and regular rhythm. Heart sounds: Normal heart sounds. No murmur heard. No gallop. Pulmonary: Effort: Pulmonary effort is normal. No respiratory distress. Breath sounds: Normal breath sounds. No stridor. No wheezing, rhonchi or rales. Chest: Chest wall: No tenderness. Abdominal: General: Bowel sounds are normal. There is no distension. Palpations: Abdomen is soft. There is no mass. Tenderness: There is no abdominal tenderness. There is no guarding or rebound. Hernia: No hernia is present. Musculoskeletal: Cervical back: Neck supple. Skin: General: Skin is warm and dry. Capillary Refill: Capillary refill takes less than 2 seconds. Findings: No erythema or rash. Neurological: General: No focal deficit present. Mental Status: He is alert and oriented to person, place, and time. Vital Signs During ED Visit Patient Vitals for the past 24 hrs: BP Temp Temp src Pulse Resp SpO2 Height 12/15/23 1641 -- -- -- -- -- -- 1.803 m (5' 11) 12/15/23 1640 127/70 98.3 F (36.8 C) Oral 78 17 99 % -- Orders/Results: Orders Placed This Encounter CULTURE THROAT RAPID STREP A ANTIGEN DISCONTD: azithromycin 500 MG tablet DISCONTD: pseudoephedrine-brompheniramine- dextromethorphan 30-2-10 MG/5ML Syrup DISCONTD: fluticasone 50 MCG/ACT Suspension nasal spray azithromycin 500 MG tablet fluticasone 50 MCG/ACT Suspension nasal spray pseudoephedrine-brompheniramine- dextromethorphan 30-2-10 MG/5ML Syrup Results for orders placed or performed during the hospital encounter of 12/15/23 RAPID STREP A ANTIGEN Result Value Ref Range RAPID STREP, GROUP A NEGATIVE NEGATIVE Radiographic Imaging No orders to display Procedures: Procedures Moderate Sedation Procedure: No ED Summary/MDM Ddx; upper respiratory infection, sinusitis, pharyngitis, bronchitis, pneumonia, influenza, COVID. 23-year-old male states s green clear yellow phlegm he has been sick for a couple of days. Started with runny nose and congestion. Started having some sore today. No difficulty swallowing. Denies any hoarseness. Complains of nasal congestion with some posterior drainage. Coughing up green thick yellow clear phlegm. Denies hemoptysis. Denies being around anyone sick. Patient is afebrile. Pulse ox 99% on room air. Strep swab is negative. I will treat patient for upper respiratory infection and bronchitis. He will be on Zithromax 500 once a day for 5 days. Bromfed DM cough syrup tsp every 6 hours as needed for cough congestion runny nose and drainage. Flonase nasal spray 2 spray bilateral nares twice a day for 7 days. Increase fluids. Drink plenty of water. Warm saltwater gargles. Tylenol, ibuprofen for pain and fever and body aches. Available [id number] take as directed. Patient says he missed work he can go back to work on Monday. Recheck with his primary care provider in 2-4 days. Return if worse cough, congestion, runny nose/drainage, sore throat, weakness/lethargy, poor oral intake, fever. Discharged home in stable condition. Voices understanding of discharge instructions. Clinical Impression: 1. Upper respiratory tract infection, unspecified type 2. Bronchitis No follow-ups on file. Discharge Medication List as of 12/15/2023 5:20 PM START taking these medications Details azithromycin 500 MG tablet Take 1 tablet by mouth daily for 5 days. Normal Disp-5 tablet, R-0 fluticasone 50 MCG/ACT Suspension nasal spray 2 sprays per nostril BID for 7 days. Normal Disp-16 g, R-0 pseudoephedrine-brompheniramine- dextromethorphan 30-2-10 MG/5ML Syrup Take 5 mL by mouth every 6 hours as needed for Cold Symptoms, Cough, Congestion or Rhinitis. Normal Disp-118 mL, R-0 Discharge Medication List as of 12/15/2023 5:20 PM STOP taking these medications naproxen 500 MG tablet Comments: Reason for Stopping: An After Visit Summary was printed and given to the patient with above information. . Lucio Obrien DO 12/15/23 1740 documented in this encounter [facility] 12-15-[address] Obrien at bedside [facility] 12-15-2023 Hospital Discharg e instructions Lucio Obrien DO - 12/15/2023 5:16 PM EDT Increase fluids. Drink plenty of water. Stay hydrated. Warm saltwater gargles to the 3 times a day as needed. Tylenol, ibuprofen for pain. Available [id number] use as directed. Zithromax 500 mg once a day for next 5 days. Bromfed DM cough syrup tsp every 6 hours as needed for cough congestion runny nose and drainage. Flonase nasal spray 2 spray bilateral nares twice a day for 7 days. Recheck with your primary care provider in 2-4 days. Call office for appointment as needed. Return if worse cough, congestion, sore throat, runny nose/drainage, weakness/lethargy, poor oral intake, fever. The following attachments cannot be sent through [facility] Everywhere.URI (Upper Respiratory Infection): Viral (Emirati)documented in this encounter [facility] 12-15-2023 Emergency department Note Per patient, cold-like symptoms for 3 days, cough, sore throat and congestion, c/o green sputum, is worried about giving his streph, swab collected, no additional complaints, call light within reach. [facility] 12-15-2023 Physician Emergency department Note Emergency Department Report [facility] EMERGENCY MEDICINE Service Date:.12/15/23 PCP: Jaelyn Terry Jr. Chief Complaint: Chief Complaint Patient presents with Sore Throat Sore throat, cough, congestion x 3 days. GEE Carrasquillo is a 23 y.o. male presents to the ED today due to sore throat. Presents to the ER with complaints of runny nose congestion and cough that started couple of days ago. Started with sore throat this morning. No known exposure to anyone sick. No known exposure to anyone with strep. Patient states he is healthy. Does not take any prescription meds. Nonsmoker. Review of Systems: Review of Systems Constitutional: Negative for chills and fever. HENT: Positive for congestion, postnasal drip, rhinorrhea and sore throat. Negative for sinus pressure, sinus pain, trouble swallowing and voice change. Eyes: Negative for discharge, redness and visual disturbance. Respiratory: Positive for cough. Negative for shortness of breath and wheezing. Cardiovascular: Negative for chest pain, palpitations and leg swelling. Gastrointestinal: Negative for abdominal pain, nausea and vomiting. Genitourinary: Negative for flank pain. Musculoskeletal: Negative for back pain and neck pain. Skin: Negative for pallor and rash. Neurological: Negative for dizziness, weakness, numbness and headaches. All other systems reviewed and are negative. Past Medical History: Past Medical History: Diagnosis Date Anxiety Past Surgical History: No past surgical history on file. Allergies: No Known Allergies Medications: Discharge Medication List as of 12/15/2023 5:20 PM START taking these medications Details azithromycin 500 MG tablet Take 1 tablet by mouth daily for 5 days. Normal Disp-5 tablet, R-0 fluticasone 50 MCG/ACT Suspension nasal spray 2 sprays per nostril BID for 7 days. Normal Disp-16 g, R-0 pseudoephedrine-brompheniramine- dextromethorphan 30-2-10 MG/5ML Syrup Take 5 mL by mouth every 6 hours as needed for Cold Symptoms, Cough, Congestion or Rhinitis. Normal Disp-118 mL, R-0 STOP taking these medications naproxen 500 MG tablet Comments: Reason for Stopping: Family History: History reviewed. No pertinent family history. Social History: Social History Socioeconomic History Marital status: Single Spouse name: Not on file Number of children: Not on file Years of education: Not on file Highest education level: Not on file Occupational History Not on file Tobacco Use Smoking status: Former Types: Cigarettes Smokeless tobacco: Never Tobacco comments: Smokes once in a blue leung Vaping Use Vaping status: Every Day Substance and Sexual Activity Alcohol use: Never Drug use: Not Currently Frequency: 7.0 times per week Types: Marijuana Comment: States daily use Sexual activity: Not on file Other Topics Concern Not on file Social History Narrative Not on file Social Determinants of Health Financial Resource Strain: Not on file Food Insecurity: Not on file Transportation Needs: Not on file Physical Activity: Not on file Stress: Not on file Social Connections: Not on file Intimate Partner Violence: Not on file Housing Stability: Not on file Physical Exam: Physical Exam Vitals and nursing note reviewed. Constitutional: General: He is not in acute distress. Appearance: He is well-developed and normal weight. He is not ill-appearing, toxic-appearing or diaphoretic. HENT: Head: Normocephalic and atraumatic. Right Ear: Tympanic membrane normal. Left Ear: Tympanic membrane normal. Nose: Congestion and rhinorrhea present. Mouth/Throat: Mouth: Mucous membranes are moist. No oral lesions. Pharynx: Oropharynx is clear. Posterior oropharyngeal erythema present. No pharyngeal swelling, oropharyngeal exudate or uvula swelling. Tonsils: No tonsillar exudate or tonsillar abscesses. Eyes: Conjunctiva/sclera: Conjunctivae normal. Pupils: Pupils are equal, round, and reactive to light. Cardiovascular: Rate and Rhythm: Normal rate and regular rhythm. Heart sounds: Normal heart sounds. No murmur heard. No gallop. Pulmonary: Effort: Pulmonary effort is normal. No respiratory distress. Breath sounds: Normal breath sounds. No stridor. No wheezing, rhonchi or rales. Chest: Chest wall: No tenderness. Abdominal: General: Bowel sounds are normal. There is no distension. Palpations: Abdomen is soft. There is no mass. Tenderness: There is no abdominal tenderness. There is no guarding or rebound. Hernia: No hernia is present. Musculoskeletal: Cervical back: Neck supple. Skin: General: Skin is warm and dry. Capillary Refill: Capillary refill takes less than 2 seconds. Findings: No erythema or rash. Neurological: General: No focal deficit present. Mental Status: He is alert and oriented to person, place, and time. Vital Signs During ED Visit Patient Vitals for the past 24 hrs: BP Temp Temp src Pulse Resp SpO2 Height 12/15/23 1641 -- -- -- -- -- -- 1.803 m (5' 11) 12/15/23 1640 127/70 98.3 F (36.8 C) Oral 78 17 99 % -- Orders/Results: Orders Placed This Encounter CULTURE THROAT RAPID STREP A ANTIGEN DISCONTD: azithromycin 500 MG tablet DISCONTD: pseudoephedrine-brompheniramine- dextromethorphan 30-2-10 MG/5ML Syrup DISCONTD: fluticasone 50 MCG/ACT Suspension nasal spray azithromycin 500 MG tablet fluticasone 50 MCG/ACT Suspension nasal spray pseudoephedrine-brompheniramine- dextromethorphan 30-2-10 MG/5ML Syrup Results for orders placed or performed during the hospital encounter of 12/15/23 RAPID STREP A ANTIGEN Result Value Ref Range RAPID STREP, GROUP A NEGATIVE NEGATIVE Radiographic Imaging No orders to display Procedures: Procedures Moderate Sedation Procedure: No ED Summary/MDM Ddx; upper respiratory infection, sinusitis, pharyngitis, bronchitis, pneumonia, influenza, COVID. 23-year-old male states s green clear yellow phlegm he has been sick for a couple of days. Started with runny nose and congestion. Started having some sore today. No difficulty swallowing. Denies any hoarseness. Complains of nasal congestion with some posterior drainage. Coughing up green thick yellow clear phlegm. Denies hemoptysis. Denies being around anyone sick. Patient is afebrile. Pulse ox 99% on room air. Strep swab is negative. I will treat patient for upper respiratory infection and bronchitis. He will be on Zithromax 500 once a day for 5 days. Bromfed DM cough syrup tsp every 6 hours as needed for cough congestion runny nose and drainage. Flonase nasal spray 2 spray bilateral nares twice a day for 7 days. Increase fluids. Drink plenty of water. Warm saltwater gargles. Tylenol, ibuprofen for pain and fever and body aches. Available [id number] take as directed. Patient says he missed work he can go back to work on Monday. Recheck with his primary care provider in 2-4 days. Return if worse cough, congestion, runny nose/drainage, sore throat, weakness/lethargy, poor oral intake, fever. Discharged home in stable condition. Voices understanding of discharge instructions. Clinical Impression: 1. Upper respiratory tract infection, unspecified type 2. Bronchitis No follow-ups on file. Discharge Medication List as of 12/15/2023 5:20 PM START taking these medications Details azithromycin 500 MG tablet Take 1 tablet by mouth daily for 5 days. Normal Disp-5 tablet, R-0 fluticasone 50 MCG/ACT Suspension nasal spray 2 sprays per nostril BID for 7 days. Normal Disp-16 g, R-0 pseudoephedrine-brompheniramine- dextromethorphan 30-2-10 MG/5ML Syrup Take 5 mL by mouth every 6 hours as needed for Cold Symptoms, Cough, Congestion or Rhinitis. Normal Disp-118 mL, R-0 Discharge Medication List as of 12/15/2023 5:20 PM STOP taking these medications naproxen 500 MG tablet Comments: Reason for Stopping: An After Visit Summary was printed and given to the patient with above information. . Lucio Obrien DO 12/15/23 [id number] [facility] 03-31-2023 Physician Emergency department Note eMERGENCY dEPARTMENT report [facility] EMERGENCY MEDICINE SERVICE DATE: 03/31/23 PCP: Jaelyn Terry Jr. CHIEF COMPLAINT: Chief Complaint Patient presents with Exposure to STD Girlfriend states she has had vaginal burning for the past couple of days after having sex with patient. Patient denies any signs or symptoms. Has no complaints at this time HPI: Christian Carrasquillo is a 22 y.o. male who presents with exposure to STD. Patient is reporting at the assistance of his partner. Partner has dysurea and burning during sexual intercourse and patient has been having unprotected sex with additional partners. 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 Patient requests testing for GC and Chlamydia. Has had unprotected sex with recent partners who he believes has an STD. Partner is a woman. Patient denies dizziness, fever, nausea, testicular pain, penile discharge, genital bumps, rash, ulceration, purulence, erythema of genitals, dysuria, urinary urgency, and urinary frequency. Denies CVA tenderness, altered mental status, confusion, syncope, severe sustained headache, dysphagia, changes in vision, changes in hearing, difficulty or pain with swallowing, stridor, SOB, tachycardia, chest pain, vomiting, and incontinence. REVIEW OF SYSTEMS: As documented in HPI. A thorough 12 point review of systems was evaluated including Constitutional and general appearance, Head, Face, Ears, Eyes, Nose, Throat, Cardiovascular, Pulmonary, GI, , Skin, and Psychiatric and was found to be negative without symptoms or signs consistent with acute pathology with the exception of that specifically documented in the HPI section of this documentation. Remaining systems reviewed and negative other than the history of present illness. PAST MEDICAL HISTORY: Past Medical History: Diagnosis Date Anxiety SURGICAL HISTORY: No past surgical history on file. CURRENT MEDICATIONS: Patient's Medications New Prescriptions No medications on file Previous Medications NAPROXEN 500 MG TABLET Take 1 tablet by mouth 2 times daily with meals for 10 days. Modified Medications No medications on file Discontinued Medications No medications on file ALLERGIES: No Known Allergies FAMILY HISTORY: No family history on file. SOCIAL HISTORY: Social History Socioeconomic History Marital status: Single Spouse name: Not on file Number of children: Not on file Years of education: Not on file Highest education level: Not on file Occupational History Not on file Tobacco Use Smoking status: Former Types: Cigarettes Smokeless tobacco: Never Tobacco comments: Smokes once in a blue leung Vaping Use Vaping Use: Every day Substance and Sexual Activity Alcohol use: Never Drug use: Not Currently Frequency: 7.0 times per week Types: Marijuana Comment: States daily use Sexual activity: Not on file Other Topics Concern Not on file Social History Narrative Not on file Social Determinants of Health Financial Resource Strain: Not on file Food Insecurity: Not on file Transportation Needs: Not on file Physical Activity: Not on file Stress: Not on file Social Connections: Not on file Intimate Partner Violence: Not on file Housing Stability: Not on file PHYSICAL EXAM: Constitutional: Oriented and well-developed, well-nourished, and in no distress. Non-toxic appearance. HEENT: Normocephalic and atraumatic. No mucosal edema, rhinorrhea, or nasal deformity. No evidence of spinal fluid from ears or nose. Mucous membranes are moist. No oral lesions. No stridor. Eyes: Extra ocular muscles intact.. Pupils are equal round and reactive to light. No discharge. Cardiovascular: Regular rate and rhythm, normal heart sounds and intact distal pulses. No murmur heard. Pulmonary/Chest: Effort normal. Lungs are clear without wheezes, rales or rhonchi. No accessory muscle usage or gasping. No tenderness to palpation or retraction. Normal chest wall motion. Abdomen: Soft and non-distended. Bowel sounds are normoactive. No masses or organomegaly. Mild tenderness with palpation of central area along right inguinal ligament. No rebound, guarding, or rigidity. Musculoskeletal: Range of motion of major joints is normal per baseline. No edema, tenderness, step-offs, or obvious deformity. No muscle spasm present in the lumbar area. No CVA tenderness. : Normal appearing genitalia. No rashes, purulence, or skin breaks present. Normal hair pattern. No erythema at urethral opening. No pain with palpation of testicle or epididymous bilaterally. Neurological: Alert and oriented. No focal weakness, tremor, or facial asymmetry. Normal speech. Normal muscle tone. CN2-12 grossly intact. Sensation of bilateral upper and lower extremities intact. VITAL SIGNS DURING ED VISIT: Patient Vitals for the past 24 hrs: BP Temp Temp src Pulse Resp SpO2 Height 03/31/23 2311 -- -- -- -- -- -- 1.803 m (5' 11) 03/31/23 2310 141/72 97.9 F (36.6 C) Oral 71 18 98 % -- ED COURSE & MEDICAL DECISION MAKIN yo man who presents with suspected exposure to STD. Provided appropriate treatment. When considering history, physical exam, and assays collected and reviewed in the ER, I do not believe the patient has a condition requiring further emergency treatment, and I do not believe the patient has significant symptoms of disease that would require observation or treatment in the hospital setting. At time of discharge, the patient was hemodynamically stable and all major body systems were reviewed and the patient was free of symptoms that would suggest additional pathologic conditions. Recommend fu with PCP to review care and for further treatment of health care needs. Recommended returning to ER if there is an increase in symptoms or warning signs of serious infection including but not limited to altered mental status, confusion, dizziness, syncope, severe sustained headache, dysphagia, changes in vision, changes in hearing, difficulty or pain with swallowing, stridor, SOB, fever above 102, tachycardia, chest pain, vomiting, and incontinence. ORDERS/RESULTS: Orders Placed This Encounter CHLAMYDIA/GONOCOCCUS, IWLVER cefTRIAXone (ROCEPHIN) 500 mg in Lidocaine 1% (PF) (XYLOCAINE MPF) IM injection Azithromycin (ZITHROMAX) tablet 1,000 mg Results for orders placed or performed during the hospital encounter of 03/20/20 D-DIMER,QUANTITATIVE Result Value Ref Range D-DIMER <0.27 <0.56 mg/L FEU COMPREHENSIVE METABOLIC PANEL Result Value Ref Range Glucose 119 (H) 70 - 100 MG/DL BUN 7 7 - 20 MG/DL CREATININE SERUM 0.80 0.6 - 1.2 MG/DL SODIUM 139 137 - 145 MMOL/L POTASSIUM 3.4 (L) 3.5 - 5.1 MMOL/L CHLORIDE 104 98 - 107 MMOL/L CALCIUM 9.8 8.9 - 10.7 MG/DL PROTEIN, TOTAL 7.7 6.3 - 8.6 GM/DL Albumin 4.9 3.7 - 5.6 G/dl BILIRUBIN, TOTAL 1.2 0.2 - 1.3 MG/DL AST 34 10 - 45 IU/L ALKALINE PHOSPHATASE 65 65 - 260 IU/L CARBON DIOXIDE (CO2) 25 22 - 30 MMOL/L A/G Ratio 1.8 1.3 - 2.2 RATIO ALT 14 <50 IU/L GFR COMMENT Unable to calculate GFR due to inappropriate age/gender/creatinine value. CBC, EDIF, PLATELET Result Value Ref Range WBC (WHITE BLOOD COUNT) 9.6 3.6 - 13.0 10*3/uL RBC 5.02 4.0 - 6.1 10*6/uL HEMOGLOBIN (HGB) 15.6 14.0 - 18.0 G/DL HEMATOCRIT (HCT) 43.4 42.0 - 52.0 % MEAN CELL VOLUME 86.4 80.0 - 100.0 FL Mean Cell HGB 31.1 26.0 - 35.0 PG MEAN CELL HGB CONCENTRATION 35.9 27.0 - 37.0 G/DL RBC DISTRIBUTION 12.4 11.5 - 14.5 % PLATELET COUNT 404 (H) 130.0 - 400.0 10*3/uL MEAN PLATELET VOLUME 6.8 (L) 7.4 - 11.0 FL DIFFERENTIAL TYPE AUTO DIFF % NEUTROPHILS 80.5 (H) 37.0 - 75.0 % LYMPHOCYTE 12.5 (L) 20.0 - 55.0 % MONOCYTE % 6.6 0.0 - 10.0 % EOSINOPHIL % 0.1 0.0 - 11.0 % BASOPHIL % 0.3 0.0 - 2.0 % Absolute Neutrophil Count 7.8 (H) 1.4 - 6.5 10*3/uL LYMPHOCYTES, ABSOLUTE 1.20 1.2 - 3.4 10*3/uL MONOCYTES, ABSOLUTE 0.6 0.0 - 0.7 10*3/uL ABSOLUTE EOSINOPHIL COUNT 0.00 0.0 - 0.7 10*3/uL ABSOLUTE BASOPHIL COUNT 0.0 0.0 - 0.2 10*3/uL TROPONIN Result Value Ref Range TROPONIN <0.02 0 - 0.08 ng/mL PTT Result Value Ref Range PTT 29.3 22.4 - 34.7 SEC PROTIME-INR Result Value Ref Range PT 14.3 11.8 - 14.4 SEC INR 1.12 0.88 - 1.12 TOXICOLOGY DRUG SCREEN, URINE Result Value Ref Range CANNABINOIDS (MARIJUANA) POSITIVE (A) NEGATIVE NG/ML Phencyclidine, S/P, Screen NEGATIVE NEGATIVE NG/ML Cocaine Metabolite POSITIVE (A) NEGATIVE NG/ML Methamphetamine NEGATIVE NEGATIVE NG/ML Opiates NEGATIVE NEGATIVE NG/ML Amphetamine NEGATIVE NEGATIVE NG/ML Benzodiazepines NEGATIVE NEGATIVE NG/ML TRICYCLIC ANTIDEPRESSANTS SCREEN, URINE NEGATIVE NEGATIVE NG/ML Methadone NEGATIVE NEGATIVE NG/ML Barbiturate NEGATIVE NEGATIVE NG/ML Oxycodone NEGATIVE NEGATIVE NG/ML PROPOXYPHENE NEGATIVE NEGATIVE NG/ML Buprenorphine NEGATIVE NEGATIVE NG/ML IMAGING: No orders to display CONSULTATIONS: None PROCEDURES: None CLINICAL IMPRESSION: No diagnosis found. DISPOSITION: Discharge No follow-ups on file. New Prescriptions No medications on file Discontinued Medications No medications on file An after visit summary was printed and given to the patient with the above information. Portions of this chart were created using LiB electronic dictation. Please excuse any typographical or grammatical errors contained herein. Anand Bhardwaj MD 03/31/23 [id number] [facility] 03-31-2023 Emergency department Note eMERGENCY dEPARTMENT report [facility] EMERGENCY MEDICINE SERVICE DATE: 03/31/23 PCP: Jaelyn Terry Jr. CHIEF COMPLAINT: Chief Complaint Patient presents with Exposure to STD Girlfriend states she has had vaginal burning for the past couple of days after having sex with patient. Patient denies any signs or symptoms. Has no complaints at this time HPI: Christian Carrasquillo is a 22 y.o. male who presents with exposure to STD. Patient is reporting at the assistance of his partner. Partner has dysurea and burning during sexual intercourse and patient has been having unprotected sex with additional partners. 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 Patient requests testing for GC and Chlamydia. Has had unprotected sex with recent partners who he believes has an STD. Partner is a woman. Patient denies dizziness, fever, nausea, testicular pain, penile discharge, genital bumps, rash, ulceration, purulence, erythema of genitals, dysuria, urinary urgency, and urinary frequency. Denies CVA tenderness, altered mental status, confusion, syncope, severe sustained headache, dysphagia, changes in vision, changes in hearing, difficulty or pain with swallowing, stridor, SOB, tachycardia, chest pain, vomiting, and incontinence. REVIEW OF SYSTEMS: As documented in HPI. A thorough 12 point review of systems was evaluated including Constitutional and general appearance, Head, Face, Ears, Eyes, Nose, Throat, Cardiovascular, Pulmonary, GI, , Skin, and Psychiatric and was found to be negative without symptoms or signs consistent with acute pathology with the exception of that specifically documented in the HPI section of this documentation. Remaining systems reviewed and negative other than the history of present illness. PAST MEDICAL HISTORY: Past Medical History: Diagnosis Date Anxiety SURGICAL HISTORY: No past surgical history on file. CURRENT MEDICATIONS: Patient's Medications New Prescriptions No medications on file Previous Medications NAPROXEN 500 MG TABLET Take 1 tablet by mouth 2 times daily with meals for 10 days. Modified Medications No medications on file Discontinued Medications No medications on file ALLERGIES: No Known Allergies FAMILY HISTORY: No family history on file. SOCIAL HISTORY: Social History Socioeconomic History Marital status: Single Spouse name: Not on file Number of children: Not on file Years of education: Not on file Highest education level: Not on file Occupational History Not on file Tobacco Use Smoking status: Former Types: Cigarettes Smokeless tobacco: Never Tobacco comments: Smokes once in a blue leung Vaping Use Vaping Use: Every day Substance and Sexual Activity Alcohol use: Never Drug use: Not Currently Frequency: 7.0 times per week Types: Marijuana Comment: States daily use Sexual activity: Not on file Other Topics Concern Not on file Social History Narrative Not on file Social Determinants of Health Financial Resource Strain: Not on file Food Insecurity: Not on file Transportation Needs: Not on file Physical Activity: Not on file Stress: Not on file Social Connections: Not on file Intimate Partner Violence: Not on file Housing Stability: Not on file PHYSICAL EXAM: Constitutional: Oriented and well-developed, well-nourished, and in no distress. Non-toxic appearance. HEENT: Normocephalic and atraumatic. No mucosal edema, rhinorrhea, or nasal deformity. No evidence of spinal fluid from ears or nose. Mucous membranes are moist. No oral lesions. No stridor. Eyes: Extra ocular muscles intact.. Pupils are equal round and reactive to light. No discharge. Cardiovascular: Regular rate and rhythm, normal heart sounds and intact distal pulses. No murmur heard. Pulmonary/Chest: Effort normal. Lungs are clear without wheezes, rales or rhonchi. No accessory muscle usage or gasping. No tenderness to palpation or retraction. Normal chest wall motion. Abdomen: Soft and non-distended. Bowel sounds are normoactive. No masses or organomegaly. Mild tenderness with palpation of central area along right inguinal ligament. No rebound, guarding, or rigidity. Musculoskeletal: Range of motion of major joints is normal per baseline. No edema, tenderness, step-offs, or obvious deformity. No muscle spasm present in the lumbar area. No CVA tenderness. : Normal appearing genitalia. No rashes, purulence, or skin breaks present. Normal hair pattern. No erythema at urethral opening. No pain with palpation of testicle or epididymous bilaterally. Neurological: Alert and oriented. No focal weakness, tremor, or facial asymmetry. Normal speech. Normal muscle tone. CN2-12 grossly intact. Sensation of bilateral upper and lower extremities intact. VITAL SIGNS DURING ED VISIT: Patient Vitals for the past 24 hrs: BP Temp Temp src Pulse Resp SpO2 Height 03/31/23 2311 -- -- -- -- -- -- 1.803 m (5' 11) 03/31/23 2310 141/72 97.9 F (36.6 C) Oral 71 18 98 % -- ED COURSE & MEDICAL DECISION MAKIN yo man who presents with suspected exposure to STD. Provided appropriate treatment. When considering history, physical exam, and assays collected and reviewed in the ER, I do not believe the patient has a condition requiring further emergency treatment, and I do not believe the patient has significant symptoms of disease that would require observation or treatment in the hospital setting. At time of discharge, the patient was hemodynamically stable and all major body systems were reviewed and the patient was free of symptoms that would suggest additional pathologic conditions. Recommend fu with PCP to review care and for further treatment of health care needs. Recommended returning to ER if there is an increase in symptoms or warning signs of serious infection including but not limited to altered mental status, confusion, dizziness, syncope, severe sustained headache, dysphagia, changes in vision, changes in hearing, difficulty or pain with swallowing, stridor, SOB, fever above 102, tachycardia, chest pain, vomiting, and incontinence. ORDERS/RESULTS: Orders Placed This Encounter CHLAMYDIA/GONOCOCCUS, WILVER cefTRIAXone (ROCEPHIN) 500 mg in Lidocaine 1% (PF) (XYLOCAINE MPF) IM injection Azithromycin (ZITHROMAX) tablet 1,000 mg Results for orders placed or performed during the hospital encounter of 03/20/20 D-DIMER,QUANTITATIVE Result Value Ref Range D-DIMER <0.27 <0.56 mg/L FEU COMPREHENSIVE METABOLIC PANEL Result Value Ref Range Glucose 119 (H) 70 - 100 MG/DL BUN 7 7 - 20 MG/DL CREATININE SERUM 0.80 0.6 - 1.2 MG/DL SODIUM 139 137 - 145 MMOL/L POTASSIUM 3.4 (L) 3.5 - 5.1 MMOL/L CHLORIDE 104 98 - 107 MMOL/L CALCIUM 9.8 8.9 - 10.7 MG/DL PROTEIN, TOTAL 7.7 6.3 - 8.6 GM/DL Albumin 4.9 3.7 - 5.6 G/dl BILIRUBIN, TOTAL 1.2 0.2 - 1.3 MG/DL AST 34 10 - 45 IU/L ALKALINE PHOSPHATASE 65 65 - 260 IU/L CARBON DIOXIDE (CO2) 25 22 - 30 MMOL/L A/G Ratio 1.8 1.3 - 2.2 RATIO ALT 14 <50 IU/L GFR COMMENT Unable to calculate GFR due to inappropriate age/gender/creatinine value. CBC, EDIF, PLATELET Result Value Ref Range WBC (WHITE BLOOD COUNT) 9.6 3.6 - 13.0 10*3/uL RBC 5.02 4.0 - 6.1 10*6/uL HEMOGLOBIN (HGB) 15.6 14.0 - 18.0 G/DL HEMATOCRIT (HCT) 43.4 42.0 - 52.0 % MEAN CELL VOLUME 86.4 80.0 - 100.0 FL Mean Cell HGB 31.1 26.0 - 35.0 PG MEAN CELL HGB CONCENTRATION 35.9 27.0 - 37.0 G/DL RBC DISTRIBUTION 12.4 11.5 - 14.5 % PLATELET COUNT 404 (H) 130.0 - 400.0 10*3/uL MEAN PLATELET VOLUME 6.8 (L) 7.4 - 11.0 FL DIFFERENTIAL TYPE AUTO DIFF % NEUTROPHILS 80.5 (H) 37.0 - 75.0 % LYMPHOCYTE 12.5 (L) 20.0 - 55.0 % MONOCYTE % 6.6 0.0 - 10.0 % EOSINOPHIL % 0.1 0.0 - 11.0 % BASOPHIL % 0.3 0.0 - 2.0 % Absolute Neutrophil Count 7.8 (H) 1.4 - 6.5 10*3/uL LYMPHOCYTES, ABSOLUTE 1.20 1.2 - 3.4 10*3/uL MONOCYTES, ABSOLUTE 0.6 0.0 - 0.7 10*3/uL ABSOLUTE EOSINOPHIL COUNT 0.00 0.0 - 0.7 10*3/uL ABSOLUTE BASOPHIL COUNT 0.0 0.0 - 0.2 10*3/uL TROPONIN Result Value Ref Range TROPONIN <0.02 0 - 0.08 ng/mL PTT Result Value Ref Range PTT 29.3 22.4 - 34.7 SEC PROTIME-INR Result Value Ref Range PT 14.3 11.8 - 14.4 SEC INR 1.12 0.88 - 1.12 TOXICOLOGY DRUG SCREEN, URINE Result Value Ref Range CANNABINOIDS (MARIJUANA) POSITIVE (A) NEGATIVE NG/ML Phencyclidine, S/P, Screen NEGATIVE NEGATIVE NG/ML Cocaine Metabolite POSITIVE (A) NEGATIVE NG/ML Methamphetamine NEGATIVE NEGATIVE NG/ML Opiates NEGATIVE NEGATIVE NG/ML Amphetamine NEGATIVE NEGATIVE NG/ML Benzodiazepines NEGATIVE NEGATIVE NG/ML TRICYCLIC ANTIDEPRESSANTS SCREEN, URINE NEGATIVE NEGATIVE NG/ML Methadone NEGATIVE NEGATIVE NG/ML Barbiturate NEGATIVE NEGATIVE NG/ML Oxycodone NEGATIVE NEGATIVE NG/ML PROPOXYPHENE NEGATIVE NEGATIVE NG/ML Buprenorphine NEGATIVE NEGATIVE NG/ML IMAGING: No orders to display CONSULTATIONS: None PROCEDURES: None CLINICAL IMPRESSION: No diagnosis found. DISPOSITION: Discharge No follow-ups on file. New Prescriptions No medications on file Discontinued Medications No medications on file An after visit summary was printed and given to the patient with the above information. Portions of this chart were created using LiB electronic dictation. Please excuse any typographical or grammatical errors contained herein. Anand Bhardwaj MD 03/31/23 [id number] documented in this encounter [facility] 12-09-2022 Hospital Discharg e instructions Angelika Colunga, [employer]AD[employer]ER - 12/09/2022 6:40 PM EDT Monitor for any worsening or more concerning symptoms. You will need to follow-up with ENT and a dentist. Take the anti-inflammatory medication as scheduled. Do not take additional ibuprofen or Motrin while taking this medication. You can take Tylenol as needed for additional pain relief. Call primary care to schedule a follow-up appointment reevaluation. Return to the walk-in clinic as needed. Go to the emergency room with any worsening or more concerning symptoms including chest pain, shortness of breath, high fevers, abdominal pain, severe headaches, or persistent nausea, vomiting, or diarrhea. documented in this encounter [facility] 12-09-2022 Physician Emergency department Note Images from the original note were not included. Emergency Department Report [facility] EMERGENCY MEDICINE Service Date:.12/09/22 PCP: Jaelyn Terry Jr. Chief Complaint: Chief Complaint Patient presents with Jaw Pain Jaw Pain x 2 months HPI Christian Carrasquillo is a 22 y.o. male presents to the ED today due to Left jaw pain below his left ear. States this has been ongoing for about a month. States he fell asleep on the couch and when he woke up he felt as if his jaw was out of place. He has had pain with the left side of his jaw since. Pain with chewing. No dental pain. No dental abscess or drainage. No dental caries. Patient states he has had his wisdom teeth removed. He denies any recent fevers. No significant trismus. No malocclusion at this time. Review of Systems: Review of Systems As documented in HPI. A thorough 12 point review of systems was evaluated including Constitutional and general appearance, Head, Face, Ears, Eyes, Nose, Throat, Cardiovascular, Pulmonary, GI, , Skin, and Psychiatric and was found to be negative without symptoms or signs consistent with acute pathology with the exception of that specifically documented in the HPI section of this documentation. Remaining systems reviewed and negative other than the history of present illness. Past Medical History: Past Medical History: Diagnosis Date Anxiety Past Surgical History: No past surgical history on file. Allergies: No Known Allergies Medications: Patient's Medications New Prescriptions NAPROXEN 500 MG TABLET Take 1 tablet by mouth 2 times daily with meals for 10 days. Previous Medications No medications on file Modified Medications No medications on file Discontinued Medications NAPROXEN 375 MG TABLET Take 1 tablet by mouth 2 times daily with meals. Family History: No family history on file. Social History: Social History Socioeconomic History Marital status: Single Spouse name: Not on file Number of children: Not on file Years of education: Not on file Highest education level: Not on file Occupational History Not on file Tobacco Use Smoking status: Former Types: Cigarettes Smokeless tobacco: Never Tobacco comments: Smokes once in a blue leung Vaping Use Vaping Use: Every day Substance and Sexual Activity Alcohol use: Never Drug use: Not Currently Frequency: 7.0 times per week Types: Marijuana Comment: States daily use Sexual activity: Not on file Other Topics Concern Not on file Social History Narrative Not on file Social Determinants of Health Financial Resource Strain: Not on file Food Insecurity: Not on file Transportation Needs: Not on file Physical Activity: Not on file Stress: Not on file Social Connections: Not on file Intimate Partner Violence: Not on file Housing Stability: Not on file Physical Exam: Physical Exam Vitals and nursing note reviewed. Constitutional: General: He is not in acute distress. Appearance: Normal appearance. He is not ill-appearing, toxic-appearing or diaphoretic. HENT: Head: Normocephalic and atraumatic. Jaw: Tenderness (mild) and pain on movement (mild) present. No trismus, swelling or malocclusion. Right Ear: Tympanic membrane, ear canal and external ear normal. No middle ear effusion. There is no impacted cerumen. No mastoid tenderness. Tympanic membrane is not injected, scarred, erythematous or bulging. Left Ear: Tympanic membrane, ear canal and external ear normal. No middle ear effusion. There is no impacted cerumen. No mastoid tenderness. Tympanic membrane is not injected, scarred, erythematous or bulging. Nose: No congestion or rhinorrhea. Mouth/Throat: Lips: No lesions. Mouth: Mucous membranes are moist. Dentition: Normal dentition. Does not have dentures. No dental tenderness, gingival swelling, dental caries, dental abscesses or gum lesions. Comments: No facial swelling or erythema, no warmth Eyes: Pupils: Pupils are equal, round, and reactive to light. Cardiovascular: Rate and Rhythm: Normal rate and regular rhythm. Pulmonary: Effort: Pulmonary effort is normal. Breath sounds: Normal breath sounds. Musculoskeletal: General: Normal range of motion. Cervical back: Normal range of motion and neck supple. Skin: General: Skin is warm and dry. Neurological: General: No focal deficit present. Mental Status: He is alert. Mental status is at baseline. Gait: Gait normal. Psychiatric: Mood and Affect: Mood normal. Vital Signs During ED Visit Patient Vitals for the past 24 hrs: BP Pulse Resp SpO2 Height 12/09/22 1811 -- -- -- -- 1.803 m (5' 11) 12/09/22 1810 141/87 79 16 100 % -- Orders/Results: Orders Placed This Encounter AMB REFERRAL TO ENT naproxen (NAPROSYN) tablet 500 mg naproxen 500 MG tablet Results for orders placed or performed during the hospital encounter of 03/20/20 D-DIMER,QUANTITATIVE Result Value Ref Range D-DIMER <0.27 <0.56 mg/L FEU COMPREHENSIVE METABOLIC PANEL Result Value Ref Range Glucose 119 (H) 70 - 100 MG/DL BUN 7 7 - 20 MG/DL CREATININE SERUM 0.80 0.6 - 1.2 MG/DL SODIUM 139 137 - 145 MMOL/L POTASSIUM 3.4 (L) 3.5 - 5.1 MMOL/L CHLORIDE 104 98 - 107 MMOL/L CALCIUM 9.8 8.9 - 10.7 MG/DL PROTEIN, TOTAL 7.7 6.3 - 8.6 GM/DL Albumin 4.9 3.7 - 5.6 G/dl BILIRUBIN, TOTAL 1.2 0.2 - 1.3 MG/DL AST 34 10 - 45 IU/L ALKALINE PHOSPHATASE 65 65 - 260 IU/L CARBON DIOXIDE (CO2) 25 22 - 30 MMOL/L A/G Ratio 1.8 1.3 - 2.2 RATIO ALT 14 <50 IU/L GFR COMMENT Unable to calculate GFR due to inappropriate age/gender/creatinine value. CBC, EDIF, PLATELET Result Value Ref Range WBC (WHITE BLOOD COUNT) 9.6 3.6 - 13.0 10*3/uL RBC 5.02 4.0 - 6.1 10*6/uL HEMOGLOBIN (HGB) 15.6 14.0 - 18.0 G/DL HEMATOCRIT (HCT) 43.4 42.0 - 52.0 % MEAN CELL VOLUME 86.4 80.0 - 100.0 FL Mean Cell HGB 31.1 26.0 - 35.0 PG MEAN CELL HGB CONCENTRATION 35.9 27.0 - 37.0 G/DL RBC DISTRIBUTION 12.4 11.5 - 14.5 % PLATELET COUNT 404 (H) 130.0 - 400.0 10*3/uL MEAN PLATELET VOLUME 6.8 (L) 7.4 - 11.0 FL DIFFERENTIAL TYPE AUTO DIFF % NEUTROPHILS 80.5 (H) 37.0 - 75.0 % LYMPHOCYTE 12.5 (L) 20.0 - 55.0 % MONOCYTE % 6.6 0.0 - 10.0 % EOSINOPHIL % 0.1 0.0 - 11.0 % BASOPHIL % 0.3 0.0 - 2.0 % Absolute Neutrophil Count 7.8 (H) 1.4 - 6.5 10*3/uL LYMPHOCYTES, ABSOLUTE 1.20 1.2 - 3.4 10*3/uL MONOCYTES, ABSOLUTE 0.6 0.0 - 0.7 10*3/uL ABSOLUTE EOSINOPHIL COUNT 0.00 0.0 - 0.7 10*3/uL ABSOLUTE BASOPHIL COUNT 0.0 0.0 - 0.2 10*3/uL TROPONIN Result Value Ref Range TROPONIN <0.02 0 - 0.08 ng/mL PTT Result Value Ref Range PTT 29.3 22.4 - 34.7 SEC PROTIME-INR Result Value Ref Range PT 14.3 11.8 - 14.4 SEC INR 1.12 0.88 - 1.12 TOXICOLOGY DRUG SCREEN, URINE Result Value Ref Range CANNABINOIDS (MARIJUANA) POSITIVE (A) NEGATIVE NG/ML Phencyclidine, S/P, Screen NEGATIVE NEGATIVE NG/ML Cocaine Metabolite POSITIVE (A) NEGATIVE NG/ML Methamphetamine NEGATIVE NEGATIVE NG/ML Opiates NEGATIVE NEGATIVE NG/ML Amphetamine NEGATIVE NEGATIVE NG/ML Benzodiazepines NEGATIVE NEGATIVE NG/ML TRICYCLIC ANTIDEPRESSANTS SCREEN, URINE NEGATIVE NEGATIVE NG/ML Methadone NEGATIVE NEGATIVE NG/ML Barbiturate NEGATIVE NEGATIVE NG/ML Oxycodone NEGATIVE NEGATIVE NG/ML PROPOXYPHENE NEGATIVE NEGATIVE NG/ML Buprenorphine NEGATIVE NEGATIVE NG/ML Radiographic Imaging No orders to display Procedures: Procedures Moderate Sedation Procedure: No ED Summary/MDM Patient presents with left jaw pain which has been ongoing for 1 month. Pain with chewing. Pain at the tempromandibular joint. No mastoid pain or tenderness. No trismus. No malocclusion. No swelling or erythema to the face or jaw. No warmth. No dental caries or evidence of dental abscess. Exam and symptoms consistent with TMJ inflammation. No indication for advanced imaging or diagnostics at this time. No evidence that he requires antibiotics at this time. He is prescribed naproxen twice daily. He is provided with referral to ENT for follow-up. Instructed to call dentist to make an appointment for follow-up as well. Discharge instructions, return precautions, follow-up instructions are reviewed with the patient he is discharged in stable condition. Clinical Impression: 1. TMJ pain dysfunction syndrome No follow-ups on file. New Prescriptions NAPROXEN 500 MG TABLET Take 1 tablet by mouth 2 times daily with meals for 10 days. Discontinued Medications NAPROXEN 375 MG TABLET Take 1 tablet by mouth 2 times daily with meals. An After Visit Summary was printed and given to the patient with above information. . . Angelika Colunga APRN-DOUGIE 12/09/[id number] Associated attestation - Maria A De Dios DO - 12/09/2022 7:56 PM EDT Attending note: I was available for consultation regarding this patient. The patient was seen, evaluated and dispositioned by the mid-level provider independently. [facility] 12-09-2022 Emergency department Note Images from the original note were not included. Emergency Department Report [facility] EMERGENCY MEDICINE Service Date:.12/09/22 PCP: Jaelyn Terry Jr. Chief Complaint: Chief Complaint Patient presents with Jaw Pain Jaw Pain x 2 months HPI Christian Carrasquillo is a 22 y.o. male presents to the ED today due to Left jaw pain below his left ear. States this has been ongoing for about a month. States he fell asleep on the couch and when he woke up he felt as if his jaw was out of place. He has had pain with the left side of his jaw since. Pain with chewing. No dental pain. No dental abscess or drainage. No dental caries. Patient states he has had his wisdom teeth removed. He denies any recent fevers. No significant trismus. No malocclusion at this time. Review of Systems: Review of Systems As documented in HPI. A thorough 12 point review of systems was evaluated including Constitutional and general appearance, Head, Face, Ears, Eyes, Nose, Throat, Cardiovascular, Pulmonary, GI, , Skin, and Psychiatric and was found to be negative without symptoms or signs consistent with acute pathology with the exception of that specifically documented in the HPI section of this documentation. Remaining systems reviewed and negative other than the history of present illness. Past Medical History: Past Medical History: Diagnosis Date Anxiety Past Surgical History: No past surgical history on file. Allergies: No Known Allergies Medications: Patient's Medications New Prescriptions NAPROXEN 500 MG TABLET Take 1 tablet by mouth 2 times daily with meals for 10 days. Previous Medications No medications on file Modified Medications No medications on file Discontinued Medications NAPROXEN 375 MG TABLET Take 1 tablet by mouth 2 times daily with meals. Family History: No family history on file. Social History: Social History Socioeconomic History Marital status: Single Spouse name: Not on file Number of children: Not on file Years of education: Not on file Highest education level: Not on file Occupational History Not on file Tobacco Use Smoking status: Former Types: Cigarettes Smokeless tobacco: Never Tobacco comments: Smokes once in a blue leung Vaping Use Vaping Use: Every day Substance and Sexual Activity Alcohol use: Never Drug use: Not Currently Frequency: 7.0 times per week Types: Marijuana Comment: States daily use Sexual activity: Not on file Other Topics Concern Not on file Social History Narrative Not on file Social Determinants of Health Financial Resource Strain: Not on file Food Insecurity: Not on file Transportation Needs: Not on file Physical Activity: Not on file Stress: Not on file Social Connections: Not on file Intimate Partner Violence: Not on file Housing Stability: Not on file Physical Exam: Physical Exam Vitals and nursing note reviewed. Constitutional: General: He is not in acute distress. Appearance: Normal appearance. He is not ill-appearing, toxic-appearing or diaphoretic. HENT: Head: Normocephalic and atraumatic. Jaw: Tenderness (mild) and pain on movement (mild) present. No trismus, swelling or malocclusion. Right Ear: Tympanic membrane, ear canal and external ear normal. No middle ear effusion. There is no impacted cerumen. No mastoid tenderness. Tympanic membrane is not injected, scarred, erythematous or bulging. Left Ear: Tympanic membrane, ear canal and external ear normal. No middle ear effusion. There is no impacted cerumen. No mastoid tenderness. Tympanic membrane is not injected, scarred, erythematous or bulging. Nose: No congestion or rhinorrhea. Mouth/Throat: Lips: No lesions. Mouth: Mucous membranes are moist. Dentition: Normal dentition. Does not have dentures. No dental tenderness, gingival swelling, dental caries, dental abscesses or gum lesions. Comments: No facial swelling or erythema, no warmth Eyes: Pupils: Pupils are equal, round, and reactive to light. Cardiovascular: Rate and Rhythm: Normal rate and regular rhythm. Pulmonary: Effort: Pulmonary effort is normal. Breath sounds: Normal breath sounds. Musculoskeletal: General: Normal range of motion. Cervical back: Normal range of motion and neck supple. Skin: General: Skin is warm and dry. Neurological: General: No focal deficit present. Mental Status: He is alert. Mental status is at baseline. Gait: Gait normal. Psychiatric: Mood and Affect: Mood normal. Vital Signs During ED Visit Patient Vitals for the past 24 hrs: BP Pulse Resp SpO2 Height 12/09/22 1811 -- -- -- -- 1.803 m (5' 11) 12/09/22 1810 141/87 79 16 100 % -- Orders/Results: Orders Placed This Encounter AMB REFERRAL TO ENT naproxen (NAPROSYN) tablet 500 mg naproxen 500 MG tablet Results for orders placed or performed during the hospital encounter of 03/20/20 D-DIMER,QUANTITATIVE Result Value Ref Range D-DIMER <0.27 <0.56 mg/L FEU COMPREHENSIVE METABOLIC PANEL Result Value Ref Range Glucose 119 (H) 70 - 100 MG/DL BUN 7 7 - 20 MG/DL CREATININE SERUM 0.80 0.6 - 1.2 MG/DL SODIUM 139 137 - 145 MMOL/L POTASSIUM 3.4 (L) 3.5 - 5.1 MMOL/L CHLORIDE 104 98 - 107 MMOL/L CALCIUM 9.8 8.9 - 10.7 MG/DL PROTEIN, TOTAL 7.7 6.3 - 8.6 GM/DL Albumin 4.9 3.7 - 5.6 G/dl BILIRUBIN, TOTAL 1.2 0.2 - 1.3 MG/DL AST 34 10 - 45 IU/L ALKALINE PHOSPHATASE 65 65 - 260 IU/L CARBON DIOXIDE (CO2) 25 22 - 30 MMOL/L A/G Ratio 1.8 1.3 - 2.2 RATIO ALT 14 <50 IU/L GFR COMMENT Unable to calculate GFR due to inappropriate age/gender/creatinine value. CBC, EDIF, PLATELET Result Value Ref Range WBC (WHITE BLOOD COUNT) 9.6 3.6 - 13.0 10*3/uL RBC 5.02 4.0 - 6.1 10*6/uL HEMOGLOBIN (HGB) 15.6 14.0 - 18.0 G/DL HEMATOCRIT (HCT) 43.4 42.0 - 52.0 % MEAN CELL VOLUME 86.4 80.0 - 100.0 FL Mean Cell HGB 31.1 26.0 - 35.0 PG MEAN CELL HGB CONCENTRATION 35.9 27.0 - 37.0 G/DL RBC DISTRIBUTION 12.4 11.5 - 14.5 % PLATELET COUNT 404 (H) 130.0 - 400.0 10*3/uL MEAN PLATELET VOLUME 6.8 (L) 7.4 - 11.0 FL DIFFERENTIAL TYPE AUTO DIFF % NEUTROPHILS 80.5 (H) 37.0 - 75.0 % LYMPHOCYTE 12.5 (L) 20.0 - 55.0 % MONOCYTE % 6.6 0.0 - 10.0 % EOSINOPHIL % 0.1 0.0 - 11.0 % BASOPHIL % 0.3 0.0 - 2.0 % Absolute Neutrophil Count 7.8 (H) 1.4 - 6.5 10*3/uL LYMPHOCYTES, ABSOLUTE 1.20 1.2 - 3.4 10*3/uL MONOCYTES, ABSOLUTE 0.6 0.0 - 0.7 10*3/uL ABSOLUTE EOSINOPHIL COUNT 0.00 0.0 - 0.7 10*3/uL ABSOLUTE BASOPHIL COUNT 0.0 0.0 - 0.2 10*3/uL TROPONIN Result Value Ref Range TROPONIN <0.02 0 - 0.08 ng/mL PTT Result Value Ref Range PTT 29.3 22.4 - 34.7 SEC PROTIME-INR Result Value Ref Range PT 14.3 11.8 - 14.4 SEC INR 1.12 0.88 - 1.12 TOXICOLOGY DRUG SCREEN, URINE Result Value Ref Range CANNABINOIDS (MARIJUANA) POSITIVE (A) NEGATIVE NG/ML Phencyclidine, S/P, Screen NEGATIVE NEGATIVE NG/ML Cocaine Metabolite POSITIVE (A) NEGATIVE NG/ML Methamphetamine NEGATIVE NEGATIVE NG/ML Opiates NEGATIVE NEGATIVE NG/ML Amphetamine NEGATIVE NEGATIVE NG/ML Benzodiazepines NEGATIVE NEGATIVE NG/ML TRICYCLIC ANTIDEPRESSANTS SCREEN, URINE NEGATIVE NEGATIVE NG/ML Methadone NEGATIVE NEGATIVE NG/ML Barbiturate NEGATIVE NEGATIVE NG/ML Oxycodone NEGATIVE NEGATIVE NG/ML PROPOXYPHENE NEGATIVE NEGATIVE NG/ML Buprenorphine NEGATIVE NEGATIVE NG/ML Radiographic Imaging No orders to display Procedures: Procedures Moderate Sedation Procedure: No ED Summary/MDM Patient presents with left jaw pain which has been ongoing for 1 month. Pain with chewing. Pain at the tempromandibular joint. No mastoid pain or tenderness. No trismus. No malocclusion. No swelling or erythema to the face or jaw. No warmth. No dental caries or evidence of dental abscess. Exam and symptoms consistent with TMJ inflammation. No indication for advanced imaging or diagnostics at this time. No evidence that he requires antibiotics at this time. He is prescribed naproxen twice daily. He is provided with referral to ENT for follow-up. Instructed to call dentist to make an appointment for follow-up as well. Discharge instructions, return precautions, follow-up instructions are reviewed with the patient he is discharged in stable condition. Clinical Impression: 1. TMJ pain dysfunction syndrome No follow-ups on file. New Prescriptions NAPROXEN 500 MG TABLET Take 1 tablet by mouth 2 times daily with meals for 10 days. Discontinued Medications NAPROXEN 375 MG TABLET Take 1 tablet by mouth 2 times daily with meals. An After Visit Summary was printed and given to the patient with above information. . . Angelika Colunga APRN-[facility]ER 12/09/[id number] Associated attestation - Maria A De Dios DO - 12/09/2022 7:56 PM EDT Attending note: I was available for consultation regarding this patient. The patient was seen, evaluated and dispositioned by the mid-level provider independently. Pt states that 2 months ago he woke up and had jaw pain that has not left since, pt denies injury, pt states that in the last 2 days it has gotten to the point that he can't open mouth or chew, pain located on the left side primarily documented in this encounter [facility] 12-09-2022 Emergency department Note Pt states that 2 months ago he woke up and had jaw pain that has not left since, pt denies injury, pt states that in the last 2 days it has gotten to the point that he can't open mouth or chew, pain located on the left side primarily [facility] 04-10-2022 Emergency department Note Pt given discharge instructions and education on crutches, verbalizes understanding, no further questions or concerns. Pt ambulated out of ED without difficulty. [facility] 04-10-2022 Emergency department Note Pt given discharge instructions and education on crutches, verbalizes understanding, no further questions or concerns. Pt ambulated out of ED without difficulty. Emergency Department Report [facility] EMERGENCY MEDIC[facility] Service Date:.04/10/22 PCP: Jaelyn Terry Jr. Chief Complaint: Chief Complaint Patient presents with Knee Pain Pt states he fell yesterday and twisted his left knee. This rn notes significant swelling to the left knee at this time.pt denies any head injury. GEE Carrasquillo is a 21 y.o. male presents to the ED today due to Complaints of injury to the left knee yesterday. Patient tried to brace himself as he fell and had the left leg planted and then injured it in a twisting motion. He points to the medial and lateral aspect of the left knee as a source of discomfort. He has an antalgic gait and presented with a wheelchair. Review of Systems: Review of Systems Constitutional: Negative. HENT: Negative. Eyes: Negative. Negative for discharge. Respiratory: Negative. Negative for apnea. Cardiovascular: Negative for leg swelling. Gastrointestinal: Negative. Negative for abdominal distention. Musculoskeletal: Positive for gait problem. Left knee pain Skin: Negative. Negative for color change. Psychiatric/Behavioral: Negative. Negative for agitation. All other systems reviewed and are negative. Past Medical History: Past Medical History: Diagnosis Date Anxiety Past Surgical History: No past surgical history on file. Allergies: No Known Allergies Medications: Patient's Medications No medications on file Family History: History reviewed. No pertinent family history. Social History: Social History Socioeconomic History Marital status: Single Spouse name: Not on file Number of children: Not on file Years of education: Not on file Highest education level: Not on file Occupational History Not on file Tobacco Use Smoking status: Current Some Day Smoker Types: Cigarettes Smokeless tobacco: Never Used Tobacco comment: Smokes once in a blue leung Substance and Sexual Activity Alcohol use: Never Drug use: Yes Frequency: 7.0 times per week Types: Marijuana Comment: States daily use Sexual activity: Not on file Other Topics Concern Not on file Social History Narrative Not on file Social Determinants of Health Financial Resource Strain: Not on file Food Insecurity: Not on file Transportation Needs: Not on file Physical Activity: Not on file Stress: Not on file Social Connections: Not on file Intimate Partner Violence: Not on file Housing Stability: Not on file Physical Exam: Physical Exam Vitals and nursing note reviewed. Constitutional: Appearance: Normal appearance. He is not ill-appearing. HENT: Head: Normocephalic. Right Ear: External ear normal. Left Ear: External ear normal. Nose: Nose normal. Mouth/Throat: Mouth: Mucous membranes are moist. Eyes: Pupils: Pupils are equal, round, and reactive to light. Cardiovascular: Rate and Rhythm: Normal rate. Pulmonary: Effort: Pulmonary effort is normal. Abdominal: General: There is no distension. Musculoskeletal: Cervical back: Normal range of motion. Comments: Tenderness on palpation to the left Knee on the lateral aspect in the absence of any deformities or obvious swelling Skin: General: Skin is warm and dry. Capillary Refill: Capillary refill takes less than 2 seconds. Neurological: General: No focal deficit present. Mental Status: He is alert and oriented to person, place, and time. Psychiatric: Behavior: Behavior normal. Vital Signs During ED Visit Patient Vitals for the past 24 hrs: BP Temp Temp src Pulse Resp SpO2 Height 04/10/22 1332 -- -- -- -- -- -- 1.803 m (5' 11) 04/10/22 1331 131/74 98.1 F (36.7 C) Oral 100 17 98 % -- Orders/Results: Orders Placed This Encounter CRUTCHES XR KNEE LEFT 3 VIEWS AMB REFERRAL TO ORTHOPAEDICS Results for orders placed or performed during the hospital encounter of 03/20/20 D-DIMER,QUANTITATIVE Result Value Ref Range D-DIMER <0.27 <0.56 mg/L FEU COMPREHENSIVE METABOLIC PANEL Result Value Ref Range GLUCOSE 119 (H) 70 - 100 MG/DL BUN 7 7 - 20 MG/DL CREATININE SERUM 0.80 0.6 - 1.2 MG/DL SODIUM 139 137 - 145 MMOL/L POTASSIUM 3.4 (L) 3.5 - 5.1 MMOL/L CHLORIDE 104 98 - 107 MMOL/L CALCIUM 9.8 8.9 - 10.7 MG/DL PROTEIN, TOTAL 7.7 6.3 - 8.6 GM/DL Albumin 4.9 3.7 - 5.6 G/dl BILIRUBIN, TOTAL 1.2 0.2 - 1.3 MG/DL AST 34 10 - 45 IU/L ALKALINE PHOSPHATASE 65 65 - 260 IU/L CARBON DIOXIDE (CO2) 25 22 - 30 MMOL/L A/G Ratio 1.8 1.3 - 2.2 RATIO ALT 14 <50 IU/L GFR COMMENT Unable to calculate GFR due to inappropriate age/gender/creatinine value. CBC, EDIF, PLATELET Result Value Ref Range WBC (WHITE BLOOD COUNT) 9.6 3.6 - 13.0 10*3/uL RBC 5.02 4.0 - 6.1 10*6/uL HEMOGLOBIN (HGB) 15.6 14.0 - 18.0 G/DL HEMATOCRIT (HCT) 43.4 42.0 - 52.0 % MEAN CELL VOLUME 86.4 80.0 - 100.0 FL Mean Cell HGB 31.1 26.0 - 35.0 PG MEAN CELL HGB CONCENTRATION 35.9 27.0 - 37.0 G/DL RBC DISTRIBUTION 12.4 11.5 - 14.5 % PLATELET COUNT 404 (H) 130.0 - 400.0 10*3/uL MEAN PLATELET VOLUME 6.8 (L) 7.4 - 11.0 FL DIFFERENTIAL TYPE AUTO DIFF % NEUTROPHILS 80.5 (H) 37.0 - 75.0 % LYMPHOCYTE 12.5 (L) 20.0 - 55.0 % MONOCYTE % 6.6 0.0 - 10.0 % EOSINOPHIL % 0.1 0.0 - 11.0 % BASOPHIL % 0.3 0.0 - 2.0 % Absolute Neutrophil Count 7.8 (H) 1.4 - 6.5 10*3/uL LYMPHOCYTES, ABSOLUTE 1.20 1.2 - 3.4 10*3/uL MONOCYTES, ABSOLUTE 0.6 0.0 - 0.7 10*3/uL ABSOLUTE EOSINOPHIL COUNT 0.00 0.0 - 0.7 10*3/uL ABSOLUTE BASOPHIL COUNT 0.0 0.0 - 0.2 10*3/uL TROPONIN Result Value Ref Range TROPONIN <0.02 0 - 0.08 ng/mL PTT Result Value Ref Range PTT 29.3 22.4 - 34.7 SEC PROTIME-INR Result Value Ref Range PT 14.3 11.8 - 14.4 SEC INR 1.12 0.88 - 1.12 TOXICOLOGY DRUG SCREEN, URINE Result Value Ref Range CANNABINOIDS (MARIJUANA) POSITIVE (A) NEGATIVE NG/ML Phencyclidine, S/P, Screen NEGATIVE NEGATIVE NG/ML Cocaine Metabolite POSITIVE (A) NEGATIVE NG/ML Methamphetamine NEGATIVE NEGATIVE NG/ML Opiates NEGATIVE NEGATIVE NG/ML Amphetamine NEGATIVE NEGATIVE NG/ML BENZODIAZEPINES NEGATIVE NEGATIVE NG/ML TRICYCLIC ANTIDEPRESSANTS SCREEN, URINE NEGATIVE NEGATIVE NG/ML Methadone NEGATIVE NEGATIVE NG/ML Barbiturate NEGATIVE NEGATIVE NG/ML Oxycodone NEGATIVE NEGATIVE NG/ML PROPOXYPHENE NEGATIVE NEGATIVE NG/ML Buprenorphine NEGATIVE NEGATIVE NG/ML Radiographic Imaging XR KNEE LEFT 3 VIEWS Final Result IMPRESSION: No acute bony abnormalities. Procedures: Procedures Medications Ordered/Given During ED Visit Medications - No data to display Medical Decision Making Patient be discharged home with an Tony wrap and crutches. A referral was placed orthopedics. He is instructed to use [id number] products for symptom management at home including applying ice. Clinical Impression: 1. Knee strain, left, initial encounter Acute No follow-ups on file. New Prescriptions No medications on file Discontinued Medications No medications on file An After Visit Summary was printed and given to the patient with above information. Yordan Cullen CNP 04/10/22 1538 Associated attestation - Paolo Hein DO - 04/10/2022 7:03 PM EDT Attending note: I was available for consultation regarding this patient. The patient was seen, evaluated and dispositioned by the mid-level provider independently. //Supervising APC visit, physician attestation. Based on the medical record the care appears appropriate. ................................ ................................ ................................ .............................. //Shared APC visit, physician attestation: [id number] This visit was performed by both a physician and in APC. I performed all aspects of MDM as documented. mented. At pt bedside, assessment complete. Pt c/o left knee pain 7/10 after stumbling and twisting knee in a mosh pit yesterday. States he was able to walk on it afterwards but was not able to walk by the end of the night. Pts left knee noted to have swelling, no redness. Respirations equal, unlabored, no distress. Call light in reach, no further needs. Pt. Lying back in bed. Call light in reach. Side rail up x 1. No new needs mentioned. Girlfreind at cart side. Ice pack given to patient at this time documented in this encounter [facility] 04-10-2022 Physician Emergency department Note Emergency Department Report [facility] EMERGENCY MEDICINE Service Date:.04/10/22 PCP: Jaelyn Terry Jr. Chief Complaint: Chief Complaint Patient presents with Knee Pain Pt states he fell yesterday and twisted his left knee. This rn notes significant swelling to the left knee at this time.pt denies any head injury. GEE Carrasquillo is a 21 y.o. male presents to the ED today due to Complaints of injury to the left knee yesterday. Patient tried to brace himself as he fell and had the left leg planted and then injured it in a twisting motion. He points to the medial and lateral aspect of the left knee as a source of discomfort. He has an antalgic gait and presented with a wheelchair. Review of Systems: Review of Systems Constitutional: Negative. HENT: Negative. Eyes: Negative. Negative for discharge. Respiratory: Negative. Negative for apnea. Cardiovascular: Negative for leg swelling. Gastrointestinal: Negative. Negative for abdominal distention. Musculoskeletal: Positive for gait problem. Left knee pain Skin: Negative. Negative for color change. Psychiatric/Behavioral: Negative. Negative for agitation. All other systems reviewed and are negative. Past Medical History: Past Medical History: Diagnosis Date Anxiety Past Surgical History: No past surgical history on file. Allergies: No Known Allergies Medications: Patient's Medications No medications on file Family History: History reviewed. No pertinent family history. Social History: Social History Socioeconomic History Marital status: Single Spouse name: Not on file Number of children: Not on file Years of education: Not on file Highest education level: Not on file Occupational History Not on file Tobacco Use Smoking status: Current Some Day Smoker Types: Cigarettes Smokeless tobacco: Never Used Tobacco comment: Smokes once in a blue leung Substance and Sexual Activity Alcohol use: Never Drug use: Yes Frequency: 7.0 times per week Types: Marijuana Comment: States daily use Sexual activity: Not on file Other Topics Concern Not on file Social History Narrative Not on file Social Determinants of Health Financial Resource Strain: Not on file Food Insecurity: Not on file Transportation Needs: Not on file Physical Activity: Not on file Stress: Not on file Social Connections: Not on file Intimate Partner Violence: Not on file Housing Stability: Not on file Physical Exam: Physical Exam Vitals and nursing note reviewed. Constitutional: Appearance: Normal appearance. He is not ill-appearing. HENT: Head: Normocephalic. Right Ear: External ear normal. Left Ear: External ear normal. Nose: Nose normal. Mouth/Throat: Mouth: Mucous membranes are moist. Eyes: Pupils: Pupils are equal, round, and reactive to light. Cardiovascular: Rate and Rhythm: Normal rate. Pulmonary: Effort: Pulmonary effort is normal. Abdominal: General: There is no distension. Musculoskeletal: Cervical back: Normal range of motion. Comments: Tenderness on palpation to the left Knee on the lateral aspect in the absence of any deformities or obvious swelling Skin: General: Skin is warm and dry. Capillary Refill: Capillary refill takes less than 2 seconds. Neurological: General: No focal deficit present. Mental Status: He is alert and oriented to person, place, and time. Psychiatric: Behavior: Behavior normal. Vital Signs During ED Visit Patient Vitals for the past 24 hrs: BP Temp Temp src Pulse Resp SpO2 Height 04/10/22 1332 -- -- -- -- -- -- 1.803 m (5' 11) 04/10/22 1331 131/74 98.1 F (36.7 C) Oral 100 17 98 % -- Orders/Results: Orders Placed This Encounter CRUTCHES XR KNEE LEFT 3 VIEWS AMB REFERRAL TO ORTHOPAEDICS Results for orders placed or performed during the hospital encounter of 03/20/20 D-DIMER,QUANTITATIVE Result Value Ref Range D-DIMER <0.27 <0.56 mg/L FEU COMPREHENSIVE METABOLIC PANEL Result Value Ref Range GLUCOSE 119 (H) 70 - 100 MG/DL BUN 7 7 - 20 MG/DL CREATININE SERUM 0.80 0.6 - 1.2 MG/DL SODIUM 139 137 - 145 MMOL/L POTASSIUM 3.4 (L) 3.5 - 5.1 MMOL/L CHLORIDE 104 98 - 107 MMOL/L CALCIUM 9.8 8.9 - 10.7 MG/DL PROTEIN, TOTAL 7.7 6.3 - 8.6 GM/DL Albumin 4.9 3.7 - 5.6 G/dl BILIRUBIN, TOTAL 1.2 0.2 - 1.3 MG/DL AST 34 10 - 45 IU/L ALKALINE PHOSPHATASE 65 65 - 260 IU/L CARBON DIOXIDE (CO2) 25 22 - 30 MMOL/L A/G Ratio 1.8 1.3 - 2.2 RATIO ALT 14 <50 IU/L GFR COMMENT Unable to calculate GFR due to inappropriate age/gender/creatinine value. CBC, EDIF, PLATELET Result Value Ref Range WBC (WHITE BLOOD COUNT) 9.6 3.6 - 13.0 10*3/uL RBC 5.02 4.0 - 6.1 10*6/uL HEMOGLOBIN (HGB) 15.6 14.0 - 18.0 G/DL HEMATOCRIT (HCT) 43.4 42.0 - 52.0 % MEAN CELL VOLUME 86.4 80.0 - 100.0 FL Mean Cell HGB 31.1 26.0 - 35.0 PG MEAN CELL HGB CONCENTRATION 35.9 27.0 - 37.0 G/DL RBC DISTRIBUTION 12.4 11.5 - 14.5 % PLATELET COUNT 404 (H) 130.0 - 400.0 10*3/uL MEAN PLATELET VOLUME 6.8 (L) 7.4 - 11.0 FL DIFFERENTIAL TYPE AUTO DIFF % NEUTROPHILS 80.5 (H) 37.0 - 75.0 % LYMPHOCYTE 12.5 (L) 20.0 - 55.0 % MONOCYTE % 6.6 0.0 - 10.0 % EOSINOPHIL % 0.1 0.0 - 11.0 % BASOPHIL % 0.3 0.0 - 2.0 % Absolute Neutrophil Count 7.8 (H) 1.4 - 6.5 10*3/uL LYMPHOCYTES, ABSOLUTE 1.20 1.2 - 3.4 10*3/uL MONOCYTES, ABSOLUTE 0.6 0.0 - 0.7 10*3/uL ABSOLUTE EOSINOPHIL COUNT 0.00 0.0 - 0.7 10*3/uL ABSOLUTE BASOPHIL COUNT 0.0 0.0 - 0.2 10*3/uL TROPONIN Result Value Ref Range TROPONIN <0.02 0 - 0.08 ng/mL PTT Result Value Ref Range PTT 29.3 22.4 - 34.7 SEC PROTIME-INR Result Value Ref Range PT 14.3 11.8 - 14.4 SEC INR 1.12 0.88 - 1.12 TOXICOLOGY DRUG SCREEN, URINE Result Value Ref Range CANNABINOIDS (MARIJUANA) POSITIVE (A) NEGATIVE NG/ML Phencyclidine, S/P, Screen NEGATIVE NEGATIVE NG/ML Cocaine Metabolite POSITIVE (A) NEGATIVE NG/ML Methamphetamine NEGATIVE NEGATIVE NG/ML Opiates NEGATIVE NEGATIVE NG/ML Amphetamine NEGATIVE NEGATIVE NG/ML BENZODIAZEPINES NEGATIVE NEGATIVE NG/ML TRICYCLIC ANTIDEPRESSANTS SCREEN, URINE NEGATIVE NEGATIVE NG/ML Methadone NEGATIVE NEGATIVE NG/ML Barbiturate NEGATIVE NEGATIVE NG/ML Oxycodone NEGATIVE NEGATIVE NG/ML PROPOXYPHENE NEGATIVE NEGATIVE NG/ML Buprenorphine NEGATIVE NEGATIVE NG/ML Radiographic Imaging XR KNEE LEFT 3 VIEWS Final Result IMPRESSION: No acute bony abnormalities. Procedures: Procedures Medications Ordered/Given During ED Visit Medications - No data to display Medical Decision Making Patient be discharged home with an Tony wrap and crutches. A referral was placed orthopedics. He is instructed to use [id number] products for symptom management at home including applying ice. Clinical Impression: 1. Knee strain, left, initial encounter Acute No follow-ups on file. New Prescriptions No medications on file Discontinued Medications No medications on file An After Visit Summary was printed and given to the patient with above information. Yordan Cullen, DOUGIE 04/10/22 1538 Associated attestation - Paolo Hein DO - 04/10/2022 7:03 PM EDT Attending note: I was available for consultation regarding this patient. The patient was seen, evaluated and dispositioned by the mid-level provider independently. //Supervising APC visit, physician attestation. Based on the medical record the care appears appropriate. ................................ ................................ ................................ .............................. //Shared APC visit, physician attestation: [id number] This visit was performed by both a physician and in APC. I performed all aspects of MDM as documented. mented. [email or web address] Work Phone: 04-10-2022 Emergency department Note At pt bedside, assessment complete. Pt c/o left knee pain 7/10 after stumbling and twisting knee in a mosh pit yesterday. States he was able to walk on it afterwards but was not able to walk by the end of the night. Pts left knee noted to have swelling, no redness. Respirations equal, unlabored, no distress. Call light in reach, no further needs. [facility] 04-10-2022 Emergency department Note Pt. Lying back in bed. Call light in reach. Side rail up x 1. No new needs mentioned. Girlfreind at cart side. [facility] 04-10-2022 Emergency department Note Ice pack given to patient at this time [facility] 11-24-2020 Hospital Discharg e Lucio Bello, - 11/24/2020 Recheck with your doctor in 2-3 days. Stop abusing drugs. Return if worse weakness lethargy, difficulty breathing. The following attachments cannot be sent through Care Everywhere.Substance Use Disorder (Emirati)documented in this encounter [facility] 11-24-2020 Emergency department Note AMA form reviewed with patient. Patient signs form at this time refusing care and treatment. Emergency Department Report [facility] EMERGENCY MEDICINE Service Date:.11/24/20 PCP: No primary care provider on file. Chief Complaint: Chief Complaint Patient presents with Drug Overdose Arrives via EMS, per EMS report patient took unknown amount of xanax and drank half a twisted tea and was found in bed difficult to arouse and foaming at the mouth. GEE Carrasquillo is a 20 y.o. male presents to the ED today due to drug overdose. This is a 20-year-old male brought to emergency room by ambulance from his home for evaluation of possible Xanax overdose. Mom apparently called the ambulance. Paramedics when they got there and had difficulty arousing the patient. On arrival to ER patient is wide-awake. Alert and cooperative. States he does not want to be seen in the emergency room. He is going to sign out AMA. His mother called in and told the nurse that she is not coming to get him. He denies any opioid use. Patient states that he did not do any drugs. He states he has been arguing with his mother. Apparently did drink some twisted tea earlier. Review of Systems: Review of Systems Constitutional: Negative for chills and fever. HENT: Negative for congestion, sore throat and trouble swallowing. Respiratory: Negative for cough and shortness of breath. Cardiovascular: Negative for chest pain. Gastrointestinal: Negative for abdominal pain, nausea and vomiting. Musculoskeletal: Negative for back pain, neck pain and neck stiffness. Skin: Negative for pallor and rash. Neurological: Negative for dizziness, weakness, numbness and headaches. Past Medical History: Past Medical History: Diagnosis Date Anxiety Past Surgical History: No past surgical history on file. Allergies: No Known Allergies Medications: Patient's Medications No medications on file Family History: No family history on file. Social History: Social History Socioeconomic History Marital status: Single Spouse name: Not on file Number of children: Not on file Years of education: Not on file Highest education level: Not on file Occupational History Not on file Tobacco Use Smoking status: Current Some Day Smoker Types: Cigarettes Smokeless tobacco: Never Used Tobacco comment: Smokes once in a blue leung Substance and Sexual Activity Alcohol use: Never Drug use: Yes Frequency: 7.0 times per week Types: Marijuana Comment: States daily use Sexual activity: Not on file Other Topics Concern Not on file Social History Narrative Not on file Social Determinants of Health Financial Resource Strain: Difficulty of Paying Living Expenses: Not on file Food Insecurity: Worried About Running Out of Food in the Last Year: Not on file Ran Out of Food in the Last Year: Not on file Transportation Needs: Lack of Transportation (Medical): Not on file Lack of Transportation (Non-Medical): Not on file Physical Activity: Days of Exercise per Week: Not on file Minutes of Exercise per Session: Not on file Stress: Feeling of Stress : Not on file Social Connections: Frequency of Communication with Friends and Family: Not on file Frequency of Social Gatherings with Friends and Family: Not on file Attends Yazidism Services: Not on file Active Member of Clubs or Organizations: Not on file Attends Club or Organization Meetings: Not on file Marital Status: Not on file Intimate Partner Violence: Fear of Current or Ex-Partner: Not on file Emotionally Abused: Not on file Physically Abused: Not on file Sexually Abused: Not on file Physical Exam: Physical Exam Vitals and nursing note reviewed. Constitutional: General: He is not in acute distress. Appearance: Normal appearance. He is normal weight. He is not ill-appearing or toxic-appearing. HENT: Head: Normocephalic and atraumatic. Nose: Nose normal. No congestion or rhinorrhea. Mouth/Throat: Mouth: Mucous membranes are moist. Pharynx: Oropharynx is clear. No posterior oropharyngeal erythema. Eyes: Extraocular Movements: Extraocular movements intact. Conjunctiva/sclera: Conjunctivae normal. Pupils: Pupils are equal, round, and reactive to light. Cardiovascular: Rate and Rhythm: Normal rate and regular rhythm. Pulses: Normal pulses. Heart sounds: Normal heart sounds. No murmur. Pulmonary: Effort: Pulmonary effort is normal. Breath sounds: Normal breath sounds. Abdominal: General: Abdomen is flat. Bowel sounds are normal. There is no distension. Palpations: Abdomen is soft. Tenderness: There is no abdominal tenderness. There is no guarding or rebound. Musculoskeletal: Cervical back: Normal range of motion and neck supple. Skin: General: Skin is warm and dry. Capillary Refill: Capillary refill takes less than 2 seconds. Neurological: General: No focal deficit present. Mental Status: He is alert and oriented to person, place, and time. Psychiatric: Mood and Affect: Mood normal. Behavior: Behavior normal. Thought Content: Thought content normal. Judgment: Judgment normal. Comments: Patient denies a taking anything to hurt himself other than some twisted tea. States she did not do any drugs. States he is not depressed. Has no thoughts about hurting himself or others. He denies any homicidal or suicidal ideation. Patient is alert and oriented 3. Denies auditory or visual hallucinations. Vital Signs During ED Visit Patient Vitals for the past 24 hrs: BP Temp Temp src Pulse Resp SpO2 Height Weight 11/24/20 0201 1.778 m (5' 10) 63.5 kg (140 lb) 11/24/20 0132 129/55 98.7 F (37.1 C) Infrared 103 16 99 % Orders/Results: No orders of the defined types were placed in this encounter. Radiographic Imaging No orders to display Procedures: Procedures Moderate Sedation Procedure: No ED Summary/MDM Ddx; substance abuse, oppositional defiant disorder, alcohol intoxication. Patient is not in a respiratory distress. He is not having any difficulty breathing or maintaining his airway. He is alert and oriented 3. GCS of 15. Patient is refusing treatment. States he wants to sign out AMA. Patient can sign out AMA when somebody reliable can come and get him. He is going to call his girlfriend. Mother apparently called and told the nurse that she is not coming to get him. Patient remained awake and alert while in the emergency room. No troubles of maintaining his airway. Breathing without difficulty. He was able to get a hold of his girlfriend who came and got him. Patient signed out AMA. Patient told to return to ER if he is having worse lethargy/weakness, difficulty breathing. He was told to stop abusing drugs. He is discharged in stable condition. Clinical Impression: 1. Substance abuse No follow-ups on file. New Prescriptions No medications on file Discontinued Medications No medications on file An After Visit Summary was printed and given to the patient with above information. . Lucio Obrien DO 11/24/20 0326 To room #3 via EMS. Patient is awake and easily aroused, responds to questions appropriately upon asking where are we? patient states some hospital. Answers year appropriately as 2K21. Upon completing assessment and obtaining vital signs patient asks this nurse Since I am 20 and an adult can I sign myself out, I don't want to be here I just want to go home as soon as possible to bed. Upon asking patient about drug use today patient denies taking any xanax. Reports smoking weed all day. This nurse encouraged patient to remain to be examined by the doctor for his own benefit and patient is still wanting to leave. Dr Obrien notified of patient desire to leave AMA. 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 * Strain or Sprain (Emirati) [facility]* Attachments The following attachments cannot be sent through Care Everywhere. * Sexually Transmitted Infections (STIs) ([facility]) (Emirati) [facility] (n[facility]ative)* Consultation (Urgent) - New Request Specialty Diagnoses / Procedures Referred By Contac t Referred To Contact Orthopaedics Diagnoses Knee strain, left, initial encounter Yordan Cullen CNP [address] [address] Geoffrey Erickson DO [address] [place] [address] Referral ID Status Reason Start Date Expiration Date V isits Requested Visits Authorized [id number] New Request 04/10/2022 05/05/2023 1 [facility] Consultation (Urgent) - New Request Specialty Diagnoses / Procedures Referred By Contac t Referred To Contact Otolaryngology Diagnoses TMJ pain dysfunction syndrome Angelika Colunga I, RY-BARKER PEELER [address] [address] Yordan Leary MD [address] [place] [address] Referral ID Status Reason Start Date Expiration Date V isits Requested Visits Authorized [id number] New Request 12/09/2022 01/03/2024 1 1 [facility] Summary Purpose Family History No Family History Records FoundNo Family History Records FoundNo Family History Records FoundNo Family History Records FoundNo Family History Records Found Advance Directives No Advanced Directives Records FoundNo Advanced Directives Records FoundNo Advanced Directives Records FoundNo Advanced Directives Records FoundNo Advanced Directives Records Found Reason for Referral Status Reason Specialty Diagnoses / Procedures Referred By Contact Referred To Contact New Request Family Medicine Diagnoses Strep throat Refugio Parada PA [address] [place] [address] Status Reason Specialty Diagnoses / Procedures Referred By Contact Referred To Contact New Request Cardiovascular Medicine Diagnoses Atypical chest pain Anival Middleton MD [address] [place] [address] Ferny Ragland MD [address] [place] [address] Scheduling Instructions . Status Reason Specialty Diagnoses / Procedures Referred By Contact Referred To Contact New Request Procedures ECG Anival Middleton MD [address] [place] [address] Discharge Instructions * Instructions* Refugio Parada PA - 09/20/2018 Drink plenty of fluids Tylenol/Ibuprofen/Aleve for fever or pain. No more than 4000 mg of Tylenol or 2400 mg of Ibuprofen (Advil, Motrin) in a 24 hour period. Return here or nearest ER for uncontrolled fever, vomiting, difficulty breathing or difficulty swallowing. Follow up with [facility] referral line * Attachments The following attachments cannot be sent through Care Everywhere. * Pharyngitis, Strep (Confirmed) (Emirati) documented in this encounter* Attachments The following attachments cannot be sent through Care Everywhere. * Lymph Nodes: Swollen: Pediatric (Emirati) documented in this encounter* Attachments The following attachments cannot be sent through Care Everywhere. * Chest Pain: Musculoskeletal (Emirati) documented in this encounter* Attachments The following attachments cannot be sent through Care Everywhere. * Otitis Media: Teen (Emirati) documented in this encounter Assessments Diagnosis Strep throat- Primary Streptococcal sore throat Diagnosis Recurrent acute suppurative otitis media without spontaneous rupture of left tympanic membrane Acute suppurative otitis media without spontaneous rupture of eardrum Cervical lymphadenopathy Enlargement of lymph nodes Diagnosis Atypical chest pain- Primary Other chest pain Diagnosis Right non-suppurative otitis media- Primary Nonsuppurative otitis media, not specified as acute or chronic Additional Source Comments (unrecognized sect ion and content) No Status Records FoundNo Status Records FoundNo Status Records FoundNo Status Records FoundNo Status Records Found INFORMATION SOURCE (unrecogn ized section and content) DATE CREATED AUTHOR 01/23/[address] [facility] DATE CREATED AUTHOR AUTHOR'S ORGANIZ ATION 11/24/2018 [facility] DATE CREATED AUTHOR AUTHOR'S ORGANIZ ATION 03/24/[address] [facility] DATE CREATED AUTHOR AUTHOR'S ORGANIZ ATION 12/29/2023 [facility] DATE CREATED AUTHOR AUTHOR'S ORGANIZ ATION 11/18/2024 [facility] Reason for Visit (unrecogniz ed section and content) Reason Comments Fever Patient has been hav ing fever, body aches, and diarrhea all day today Diarrhea Generalized Body Aches Reason Comments Ear Pain c/o JOSE C ear pain litzy t pt states is now radiating down into his neck. Pt states symptoms present for 2 weeks. Mother states child was treated 1 week ago and treated with Z-pack for Rt ear infection. Pt denies drainage. Reason Comments Anxiety Patient reports anxi ety and panic attacks x 2 months, that are prgressively getting worse. (Reports that he was seen at PCP today and prescribed Zoloft, however has no yet filled the prescription.) Respirations even and unlabored, no signs of distress observed. Reason Comments Fever Patient states cough and fever for the last week. States this morning woke up with ear pain. States he has also been waking up with bloody noses in the morning. Cough Ear Pain Reason Comments Drug Overdose Arrives via EMS, per EMS report patient took unknown amount of xanax and drank half a twisted tea and was found in bed difficult to arouse and foaming at the mouth. Reason Comments Knee Pain Pt states he fell ye sterday and twisted his left knee. This rn notes significant swelling to the left knee at this time.pt denies any head injury. Reason Comments Jaw Pain Jaw Pain x 2 months Reason Comments Exposure to STD Girlfriend states sh radha has had vaginal burning for the past couple of days after having sex with patient. Patient denies any signs or symptoms. Has no complaints at this time Reason Comments Sore Throat Sore throat, cough, congestion x 3 days. Denise Lyons RN - 03/21/2020 12:15 AM EDTDenise Lyons RN - 03/20/2020 11:20 PM RAZIATAnival Middleton MD - 03/20/2020 10:53 PM EDTDenise Lyons RN - 03/20/2020 10:51 PM EDT ED Notes (unrecognized secti on and content) Patient's mother states the reason patient does not have prescription for breakthrough anxiety medication is because of his marijuana smoking habit and they don't want him to be addicted. Mom seems agitated but denies any questions or concerns and verbalizes understanding. Thanks RN and both ambulate to lobby Patient agrees to take Ibuprofen, medication explained and handed to patient, patient then again asks what it is, medication explained again, patient states well I'm not having any pain Emergency Department Report [facility] Service Date:.03/20/20 PCP: No primary care provider on file. Chief Complaint: Chief Complaint Patient presents with Anxiety Patient reports anxiety and panic attacks x 2 months, that are prgressively getting worse. (Reports that he was seen at PCP today and prescribed Zoloft, however has no yet filled the prescription.) Respirations even and unlabored, no signs of distress observed. GEE Carrasquillo is a 19 y.o. male presents to the ED today due to anxiety and chest pain. 19-year-old male presented to ER stating that he has intermittent chest pain ongoing for the last 2 months and he feel anxious and feeling his heart racing. He denies any cough congestion or fever. He denies any syncope or presyncope. He admitted to smoking cigarettes and marijuana. He denies any abdomen pain or flank pain and came to the ER for evaluation. Denies any suicidal or homicidal ideation. Review of Systems: Review of Systems Constitutional: Negative for activity change, appetite change, chills, diaphoresis, fatigue and fever. HENT: Negative for congestion, drooling, ear discharge, ear pain, facial swelling, hearing loss, sinus pressure, sinus pain, sore throat, trouble swallowing and voice change. Eyes: Negative for photophobia, pain, discharge, redness and visual disturbance. Respiratory: Negative for cough, shortness of breath and wheezing. Cardiovascular: Positive for chest pain and palpitations. Negative for leg swelling. Gastrointestinal: Negative for abdominal distention, abdominal pain, blood in stool, diarrhea, nausea and vomiting. Endocrine: Negative for cold intolerance, heat intolerance, polydipsia, polyphagia and polyuria. Genitourinary: Negative for difficulty urinating, dysuria, flank pain, frequency and urgency. Musculoskeletal: Negative for back pain, joint swelling, neck pain and neck stiffness. Skin: Negative for color change and rash. Allergic/Immunologic: Negative for environmental allergies, food allergies and immunocompromised state. Neurological: Negative for dizziness, seizures, syncope, facial asymmetry, speech difficulty, weakness, light-headedness, numbness and headaches. Hematological: Negative for adenopathy. Does not bruise/bleed easily. Psychiatric/Behavioral: Negative for behavioral problems, hallucinations and suicidal ideas. The patient is nervous/anxious. Past Medical History: Past Medical History: Diagnosis Date Anxiety Past Surgical History: No past surgical history on file. Allergies: No Known Allergies Medications: Patient's Medications No medications on file Family History: No family history on file. Social History: Social History Socioeconomic History Marital status: Single Spouse name: Not on file Number of children: Not on file Years of education: Not on file Highest education level: Not on file Occupational History Not on file Social Needs Financial resource strain: Not on file Food insecurity Worry: Not on file Inability: Not on file Transportation needs Medical: Not on file Non-medical: Not on file Tobacco Use Smoking status: Current Some Day Smoker Types: Cigarettes Smokeless tobacco: Never Used Tobacco comment: Smokes once in a blue leung Substance and Sexual Activity Alcohol use: Never Frequency: Never Drug use: Yes Frequency: 7.0 times per week Types: Marijuana Comment: States daily use Sexual activity: Not on file Lifestyle Physical activity Days per week: Not on file Minutes per session: Not on file Stress: Not on file Relationships Social connections Talks on phone: Not on file Gets together: Not on file Attends yarsanism service: Not on file Active member of club or organization: Not on file Attends meetings of clubs or organizations: Not on file Relationship status: Not on file Intimate partner violence Fear of current or ex partner: Not on file Emotionally abused: Not on file Physically abused: Not on file Forced sexual activity: Not on file Other Topics Concern Not on file Social History Narrative Not on file Physical Exam: Physical Exam Vitals signs and nursing note reviewed. Constitutional: General: He is not in acute distress. Appearance: Normal appearance. He is not toxic-appearing or diaphoretic. HENT: Head: Normocephalic and atraumatic. Right Ear: Tympanic membrane, ear canal and external ear normal. Left Ear: Tympanic membrane, ear canal and external ear normal. Nose: Nose normal. Mouth/Throat: Mouth: Mucous membranes are moist. Pharynx: Oropharynx is clear. No oropharyngeal exudate or posterior oropharyngeal erythema. Eyes: Extraocular Movements: Extraocular movements intact. Conjunctiva/sclera: Conjunctivae normal. Pupils: Pupils are equal, round, and reactive to light. Neck: Musculoskeletal: Normal range of motion and neck supple. No neck rigidity or muscular tenderness. Vascular: No carotid bruit. Cardiovascular: Rate and Rhythm: Normal rate and regular rhythm. Pulses: Normal pulses. Heart sounds: Normal heart sounds. No murmur. No friction rub. No gallop. Pulmonary: Effort: Pulmonary effort is normal. Breath sounds: Normal breath sounds. No wheezing or rales. Chest: Chest wall: No tenderness. Abdominal: General: Abdomen is flat. Bowel sounds are normal. There is no distension. Palpations: Abdomen is soft. There is no mass. Tenderness: There is no abdominal tenderness. There is no right CVA tenderness or left CVA tenderness. Hernia: No hernia is present. Musculoskeletal: Normal range of motion. General: No tenderness or deformity. Right lower leg: No edema. Left lower leg: No edema. Lymphadenopathy: Cervical: No cervical adenopathy. Skin: General: Skin is warm and dry. Capillary Refill: Capillary refill takes less than 2 seconds. Coloration: Skin is not pale. Findings: No bruising, lesion or rash. Neurological: General: No focal deficit present. Mental Status: He is alert and oriented to person, place, and time. Psychiatric: Mood and Affect: Mood normal. Vital Signs During ED Visit Patient Vitals for the past 24 hrs: BP Temp Temp src Pulse Resp SpO2 Height Weight 03/20/20 2315 131/65 80 16 100 % 03/20/206 1.803 m (5' 11) 68 kg (150 lb) 03/20/20 2235 142/84 98 F (36.7 C) Oral 92 18 100 % Orders/Results: Orders Placed This Encounter XR CHEST AP PORTABLE D-DIMER,QUANTITATIVE COMPREHENSIVE METABOLIC PANEL CBC, EDIF, PLATELET TROPONIN PTT PROTIME-INR TOXICOLOGY DRUG SCREEN, URINE ECG ibuprofen (MOTRIN) tablet 600 mg Results for orders placed or performed during the hospital encounter of 03/20/20 D-DIMER,QUANTITATIVE Result Value Ref Range D-DIMER <0.27 <0.56 mg/L FEU COMPREHENSIVE METABOLIC PANEL Result Value Ref Range GLUCOSE 119 (H) 70 - 100 MG/DL BUN 7 7 - 20 MG/DL CREATININE SERUM 0.80 0.6 - 1.2 MG/DL SODIUM 139 137 - 145 MMOL/L POTASSIUM 3.4 (L) 3.5 - 5.1 MMOL/L CHLORIDE 104 98 - 107 MMOL/L CALCIUM 9.8 8.9 - 10.7 MG/DL PROTEIN, TOTAL 7.7 6.3 - 8.6 GM/DL ALBUMIN 4.9 3.7 - 5.6 G/dl BILIRUBIN, TOTAL 1.2 0.2 - 1.3 MG/DL AST 34 10 - 45 IU/L ALKALINE PHOSPHATASE 65 65 - 260 IU/L CARBON DIOXIDE (CO2) 25 22 - 30 MMOL/L A/G Ratio 1.8 1.3 - 2.2 RATIO ALT 14 <50 IU/L GFR COMMENT Unable to calculate GFR due to inappropriate age/gender/creatinine value. CBC, EDIF, PLATELET Result Value Ref Range WBC (WHITE BLOOD COUNT) 9.6 3.6 - 13.0 10*3/uL RBC 5.02 4.0 - 6.1 10*6/uL HEMOGLOBIN (HGB) 15.6 14.0 - 18.0 G/DL HEMATOCRIT (HCT) 43.4 42.0 - 52.0 % MEAN CELL VOLUME 86.4 80.0 - 100.0 FL Mean Cell HGB 31.1 26.0 - 35.0 PG MEAN CELL HGB CONCENTRATION 35.9 27.0 - 37.0 G/DL RBC DISTRIBUTION 12.4 11.5 - 14.5 % PLATELET COUNT 404 (H) 130.0 - 400.0 10*3/uL MEAN PLATELET VOLUME 6.8 (L) 7.4 - 11.0 FL DIFFERENTIAL TYPE AUTO DIFF % NEUTROPHILS 80.5 (H) 37.0 - 75.0 % LYMPHOCYTE 12.5 (L) 20.0 - 55.0 % MONOCYTE % 6.6 0.0 - 10.0 % EOSINOPHIL % 0.1 0.0 - 11.0 % BASOPHIL % 0.3 0.0 - 2.0 % Absolute Neutrophil Count 7.8 (H) 1.4 - 6.5 10*3/uL LYMPHOCYTES, ABSOLUTE 1.20 1.2 - 3.4 10*3/uL MONOCYTES, ABSOLUTE 0.6 0.0 - 0.7 10*3/uL ABSOLUTE EOSINOPHIL COUNT 0.00 0.0 - 0.7 10*3/uL ABSOLUTE BASOPHIL COUNT 0.0 0.0 - 0.2 10*3/uL TROPONIN Result Value Ref Range TROPONIN <0.02 0 - 0.08 ng/mL PTT Result Value Ref Range PTT 29.3 22.4 - 34.7 SEC PROTIME-INR Result Value Ref Range PT 14.3 11.8 - 14.4 SEC INR 1.12 0.88 - 1.12 Radiographic Imaging XR CHEST AP PORTABLE Preliminary Result IMPRESSION: Nonacute portable chest. EKG reveals normal sinus rhythm with a heart rate of 90 bpm an incomplete right bundle branch block with nonspecific ST-T wave changes Procedures: Procedures Moderate Sedation Procedure: No ED Summary/MDM 19-year-old male presented to ER with intermittent chest pain ongoing for 2 months. He feels as if his heart is racing. He also admits to using smoker and marijuana. A complete cardiac workup including EKG chest x-ray cardiac workup including d- dimer is normal and patient is being discharged home in stable condition Clinical Impression: No diagnosis found. No follow-ups on file. New Prescriptions No medications on file Discontinued Medications No medications on file An After Visit Summary was printed and given to the patient with above information. . Anival Middleton MD 03/20/20 2348 Patient's labs drawn by RN and sent to lab. Grandmother in waiting room and patient's mother at bedside. documented in this encounter Care Teams (unrecognized sec tion and content) Photogrammetric Compilation Specialist Relationship Specialty Start Date End Date Jaelyn Terry Jr., PA [address] [place] [address] PCP - General Physician Digital Production Artist - [facility] 04/10/22 Photogrammetric Compilation Specialist Relationship Specialty Start Date End Date Jaelyn Terry Jr., PA [address] [place] [address] PCP - General Physician Digital Production Artist - [facility] 04/10/22 Photogrammetric Compilation Specialist Relationship Specialty Start Date End Date Jaelyn Terry Jr., PA [address] [place] [address] PCP - General Physician Digital Production Artist - [facility] 04/10/22 Photogrammetric Compilation Specialist Relationship Specialty Start Date End Date Jaelyn Terry Jr., PA [address] [place] [address] PCP - General Physician Digital Production Artist - Medical 04/10/22 Scheduled Active and Recently Administ ered Medications (unrecognized section and content) Medication Order 12/07/2022 12/08/2022 12/09/2022 naproxen (NAPROSYN) tablet 500 mg (COMPLETED) 500 mg, Oral, ONCE, 1 dose, On Mon12/09/22 at [id number] (Given - Provid er: Julieta Cloud RN) Scheduled Medication Order 03/30/2023 03/31/2023 04/01/2023 Azithromycin (ZITHROMAX) tablet 1,000 mg (COMPLETED) 1,000 mg, Oral, ONCE, 1 dose, On Mon04/01/23 at [id number] (Given - Provid er: Denise Lyons RN) cefTRIAXone (ROCEPHIN) 500 mg in Lidocaine 1% (PF) (XYLOCAINE MPF) IM injection (COMPLETED) 500 mg, Intramuscular, ONCE, 1 dose, On 04/01/23 at 0015, Reconstitute 500mg vial with 1.8ml lidocaine 1% to yield 250 mg/mL. 0020 (Given - Provid er: Denise Lyons RN) FOR RECORDS PERTAINING TO PATIENTS WHO ARE OR HAVE BEEN ENROLLED IN A CHEMICAL DEPENDENCY/SUBSTANCEABUSE PROGRAM, SOME INFORMATION MAY BE OMITTED. This clinical summary was aggregated from multiple sources. Caution should be exercised in using it in the provision of clinical care. This summary normalizes information from multiple sources, and as a consequence, information in this document may materially change the coding, format and clinical context of patient data. In addition, data may be omitted in some cases. CLINICAL DECISIONS SHOULD BE BASED ON THE PRIMARY CLINICAL RECORDS. [employer] [facility]. provides no warranty or guarantee of the accuracy or completeness of information in this document.
[2025-01-22 10:52] VITALS: BP 125/74; PULSE 82; RESP 16; TEMP 37.1; O2SAT 99
== END 2025-01-22 10:54 | disposition home or self-care (01) ==
PROVIDERS: Emergency Provider Emergency Medicine; Visit Provider Emergency Medicine
DX: R10.9 Unspecified abdominal pain (principal); R11.2 Nausea with vomiting, unspecified; Z87.19 Personal history of other diseases of the digestive system
CPT/HCPCS: 74177; 80053; 83690; 85025; 96361; 96374; 99284; Q9967; A4216; J2405